=== PATIENT | female | born 1940 | race Caucasian/White ===

== ENCOUNTER 2016-11-15 10:59 | Inpatient (IN) | payer OTHER ==
[~2016-11-15] VITALS: Ht 152.4 cm; Wt 90.7 kg
[~2016-11-15 10:59] MED LIST: ADVAIR DISKUS 21 DSK INH; ASPIR 8181 MG PO; AUGMENTIN 875875 MG PO; CEFTIN500 MG PO; DUONEB 3 MG/3 ML3 ML INH; FENOFIBRATE160 MG PO; FISH OIL500 MG PO; FUROSEMIDE40 M1 PO; HUMALOG100 U/ML SC; KEFLEX500 MG PO; LANTUS SOLOS100 U/ML SC; LEVAQUIN500 MG PO; LOSARTAN POTAS100 MG PO; METFORMIN HYDR500 M1 PO; NAC600 MG PO; OMEPRAZOLE40 MG PO; PREDNISONE 10MG10 M1 PO; PREDNISONE 20MG20 MG PO; PREDNISONE10 MG PO; PROAIR HFA8.5 GM; SINGULAIR 5 MG T5 MG PO; SPIRIVA 18 MCG18 MCG INH; VALIUM5 M1 PO; VICODIN5-300 PO; VICTOZA6 MG/ML SC; VITAMIN B11000 MCG/M PO; VITAMIN B12500 MCG PO; VITAMIN C500 M3 PO; VITAMIN D1000 IU PO; ZETIA10 MG PO; ZOFRAN ODT4 MG PO; [UNRECOGNIZED DRUG - SUPPLY]
--- NOTE | 2016-11-15 11:12 | NUR ---
76 Y/O FEMALE C/O URI SYMPTOMS X 1 WEEK: C/O COUGH WITH YELLOW MUCOUS, FEELING "WEAK" AND DECREASED APPETITE/PO INTAKE. ALSO REPORTS "CHILLS". AFEBRILE AT PRESENT.
--- NOTE | 2016-11-15 11:20 | NUR ---
PT STATING SHE HAD AN XRAY ON FRIDAY AND WOULD LIKE TO BE SEEN BY MD PRIOR FOR REPEAT XRAY
--- NOTE | 2016-11-15 11:54 | ED DYSPNEA/ASTHMA COMPLAINT ---
History of Present Illness General Chief Complaint: Upper Respiratory Sx/Fever Stated Complaint: URI X 1WK Source: patient, family, old records Exam Limitations: no limitations Vital Signs & Intake/Output Vital Signs & Intake/Output Vital Signs Date Time Temp Pulse Resp B/P Pulse O2 O2 Flow FiO2 Ox Delivery Rate 11/19 0800 Room Air 11/19 0624 97.8 81 20 138/82 96 Room Air 11/19 0000 Room Air 11/18 2233 97.5 82 20 128/82 96 Room Air 11/18 1900 96 Room Air 11/18 1605 97.6 81 18 110/68 94 11/18 1600 Room Air ED Intake and Output 11/19 0000 11/18 1200 Intake Total 2275 120 Output Total 500 Balance 1775 120 Intake, IV 775 Intake, Oral 1500 120 Number 0 Bowel Movements Output, Urine 500 Allergies Coded Allergies: oxycodone (From PERCOCET) (?PERCOCET - NAUSEA 01/01/16) codeine (GI UPSET 01/01/16) Triage Note: 76 Y/O FEMALE C/O URI SYMPTOMS X 1 WEEK: C/O COUGH WITH YELLOW MUCOUS, FEELING "WEAK" AND DECREASED APPETITE/PO INTAKE. ALSO REPORTS "CHILLS". AFEBRILE AT PRESENT. Triage Nurses Notes Reviewed? yes HPI: Patient is a 76-year-old female presents complaining of cough, chills, weakness. Symptoms onset approximately 1.5 weeks ago but worsening over the past 2 days. Patient was seen by her pattern molder, Dr. Ramesh, on Friday, was examined and had a chest x-ray was placed on Mucinex. Patient reports no improvement with the Mucinex. Cough with yellow sputum production. Patient has been using her nebulizer, did not use today, with minimal improvement. Headache associated with cough. Patient received her influenza vaccination within the past year. Patient denies fevers, chest pain, bowel pain, nausea, vomiting. (MANISH RODRIGUEZ,LOLA) Reconcile Medications Albuterol Sulfate (Proair Hfa) 0.09 MG/Actuation ESE 2 PUFF INH Q6P PRN COPD (Reported) Allopurinol 300 MG TABLET 150 MG PO DAILY kidney stones (Reported) Ascorbate Calcium (Vitamin C) 500 MG TABLET 2 TAB PO DAILY SUPPLEMENT ( Reported) Aspirin (Ecotrin) 81 MG TABLET.DR 1 TAB PO DAILY HEART HEALTH (Reported) Cholecalciferol (Vitamin D3) 1,000 UNIT TABLET 1 TAB PO DAILY SUPPLEMENT ( Reported) Cyanocobalamin (Vitamin B12) 500 MCG TAB 1 TAB PO DAILY SUPPLEMENT (Reported) Ezetimibe (Zetia) 10 MG TABLET 1 TAB PO DAILY CHOLESTEROL (Reported) Fenofibrate 160 MG TAB 1 TAB PO DAILY CHOL (Reported) FLUTICASONE/SALMETEROL (Advair 250-50 Diskus) 250 MCG-50 MCG/DOSE BLST.W.DEV 1 PUF INH BID COPD (Reported) Furosemide 40 MG TABLET 1 TAB PO DAILY WATER PILL (Reported) HYDROCODONE/ACETAMINOPHEN (Hydrocodon-Acetaminophen 5-325) 5 MG-325 MG TABLET 1-2 TAB PO DAILY PAIN (Reported) Insulin Glargine, Recombinan (Lantus Solostar) 100 U/ML JAIME 30 UNITS SC AT BEDTIME DM (Reported) Insulin Lispro, Recombinant (Humalog) 100 U/ML HARSHIL 0 SC TIDAC/HS DIABETES ( Reported) BEFORE MEALS FS Units <120 (0) (121-150) (2) (151-200) (4) (201-250) (6) (251-300) (8) (301-350) (10) (351-400) (12) >400 Call Doctor AT BEDTIME FS Units <120 (0) (121-150) (0) (151-200) (0) (201-250) (0) (251-300) (1) (301-350) (2) (351-400) (3) >400 Call Doctor Liraglutide (Victoza 3-Richard) 0.6 MG/0.1 ML (18 MG/3 ML) PEN.INJCTR 1.8 mg SC DAILY DM (Reported) Losartan Potassium 100 MG TABLET 0.5 TAB PO DAILY HTN (Reported) Montelukast Sodium (Singulair) 5 MG TAB.CHEW 2 TAB PO DAILY ASTHMA (Reported) Omeprazole 40 MG CAPSULE.DR 1 CAP PO DAILY GERD (Reported) Pregabalin (Lyrica) 75 MG CAPSULE 1 CAP PO DAILY PAIN (Reported) Ramelteon (Rozerem) 8 MG TABLET 1 TAB PO QPMP PRN SLEEP Tiotropium [place]arien (Spiriva) 18 MCG CAP.W.DEV 1 CAP INH DAILY COPD (Reported) (JO ANN BANDA,JB) Past History Travel History Traveled to [place] past 21 day No Medical History Any Pertinent Medical History? see below for history Neurological: dizziness EENT: NONE Cardiovascular: CHF, hypertension, hyperlipidemia Respiratory: asthma, COPD Gastrointestinal: NONE Hepatic: cholangitis Renal: NONE (stones) Musculoskeletal: CHRONIC BACK PAIN Psychiatric: NONE Endocrine: DIABETES (IDDM) Blood Disorders: NONE Cancer(s): NONE CLAIM TRAINEE/Reproductive: NONE History of MRSA: No History of VRE: No History of CDIFF: No Surgical History Surgical History: cholecystectomy, hysterectomy Psychosocial History Who do you live with Spouse Services at Home None What is your primary language Thai Tobacco Use: Quit >30 days ago Family History Family History, If Any: BROTHER MOTHER FATHER SISTER BROTHER (lung ca). SISTER (emphysema). Relation not specified for: FH: brain cancer FH: colon cancer FH: diabetes mellitus FH: ischemic heart disease Hx Contributory? No (LOLA LYLES) Review of Systems Review of Systems Constitutional: Reports: chills, malaise, weakness. Denies: fever. EENTM: Reports: no symptoms. Respiratory: Reports: cough, short of breath, sputum production, wheezing. Cardiovascular: Denies: chest pain. GI: Denies: abdominal pain, nausea, vomiting. Genitourinary: Reports: no symptoms. Musculoskeletal: Reports: back pain (chronic, unchanged). Skin: Reports: no symptoms. Neurological/Psychological: Reports: no symptoms. Hematologic/Endocrine: Reports: no symptoms. Immunologic/Allergic: Reports: no symptoms. (LOLA LYLES) Physical Exam Physical Exam General Appearance: well developed/nourished, alert, awake Head: atraumatic, normal appearance Eyes: Bilateral: normal appearance, PERRL, EOMI. Ears, Nose, Throat: normal pharynx, normal ENT inspection, hearing grossly normal, course breath sounds in the upper airways/neck. No stridor Neck: normal inspection, supple, full range of motion Respiratory: chest non-tender, no respiratory distress, mild to moderate diffuse inspiratory and expiratory wheezing Cardiovascular: regular rate/rhythm Gastrointestinal: soft, non-tender Extremities: normal inspection, normal capillary refill, normal range of motion, trace bilateral lower extremity edema Neurologic/Psych: no motor/sensory deficits, awake, alert, oriented x 3, normal mood/affect Skin: intact, normal color, warm/dry Lymphatic: no anterior cervical mady Core Measures ACS in differential dx? No Severe Sepsis Present: No Septic Shock Present: No (LOLA LYLES) Progress Differential Diagnosis: asthma, bronchitis, CHF, COPD, pulmonary embolism, pneumonia Plan of Care: Orders Procedure Date/time Status Anticipated Discharge 11/20 UNK Active BASIC ELECTROLYTES PLUS BUN&CR 11/19 0600 Complete Nursing Misc 11/19 UNK Active Elevate 11/19 UNK Active RT: Reevaluation 11/18 1424 Active AEROSOL CHG 11/18 UNK Complete RT OVER-RIDE 11/18 UNK Complete Nursing Misc 11/18 UNK Active Current Medications Sig/Jose Start time Last Medication Dose Stop Time Status Admin Pregabalin 75 MG QPM 11/19 2200 AC (Lyrica) Albuterol Sulfate 2 PUF Q4P PRN 11/18 1400 AC (Ventolin) Laboratory Tests 11/19/16 0845: Anion Gap 13, Estimated GFR 34 L, BUN/Creatinine Ratio 35.3 H Discussed with and seen by Dr. Jessica. Results of chest x-ray discussed with patient. Ceftriaxone and Azithromycin ordered. (LOLA LYLES) Diagnostic Imaging: Viewed by Me: Radiology Read. Discussed w/RAD: Radiology Read. Radiology Impression: PATIENT: EMILIE CEVALLOS PRESENT AGE: 76 PATIENT ACCOUNT NO: [id number] : 38 LOCATION: [facility] ORDERING PHYSICIAN: JB JESSICA MD SERVICE DATE: 11/15/16 EXAM TYPE: RAD - XRY-CHEST XRAY, PA AND LATERAL EXAMINATION: XR CHEST CLINICAL INFORMATION: Shortness of breath. COMPARISON: 11/11/2016. TECHNIQUE: PA and lateral views of the chest were obtained. FINDINGS: The cardiomediastinal silhouette is within normal limits. There is new developing patchy opacity overlying the spine in the costophrenic angle inferiorly concerning for developing infiltrate and pneumonia given the patient's symptoms. It is uncertain if this is at the left or right lung base, clinical correlation recommended, however I believe it is more likely in the left costophrenic angle posteriorly. This could also represent some atelectasis. Follow-up to clearing is recommended. The lungs and pleural spaces otherwise appear clear. There is no evidence of pneumothorax or pulmonary edema. Included osseous structures appear largely unremarkable. IMPRESSION: Findings concerning for lower lobe pneumonia most likely left lower lobe. Follow-up imaging is recommended. DICTATED BY: NICOLA CARVAJAL MD DATE/TIME DICTATED:1222 DREDGING INSPECTOR:SHABAAN DATE/TIME TRANSCRIBED:11/15/161222 CONFIDENTIAL, DO NOT COPY WITHOUT APPROPRIATE AUTHORIZATION. <Electronically signed in Other Vendor System> SIGNED BY: NICOLA CARVAJAL MD 11/15/161228 Initial ED EKG: none (LOLA LYLES) Departure Departure Disposition: STILL A PATIENT Condition: Stable Clinical Impression Primary Impression: Pneumonia Referrals: DEEPA CANSECO MD (PCP/Family) Departure Forms: Customer Survey General Discharge Information Admission Note Spoke With: EULOGIO JEAN MD Documentation of Exam: Documentation of any treatments & extenuating circumstances including Concerns Regarding Discharge (functional status, medication knowledge or non-compliance, living conditions, etc.) that warrant an admission rather than observation: IV antibiotics, total respiratory care, consider pulmonary consultation. Patient with 2 points on [address] 65 scoring which puts her at higher risk if discharged. (LOLA LYLES) Departure Prescriptions: Current Visit Scripts Ramelteon (Rozerem) 1 TAB PO QPMP PRN SLEEP #30 TAB Ref 1 PA/ASSEMBLY MANAGER Co-Sign Statement Statement: ED Attending supervision documentation- [x] I saw and evaluated the patient. I have also reviewed all the pertinent lab results and diagnostic results. I agree with the findings and the plan of care as documented in the PA's/ASSEMBLY MANAGER's documentation. [x] I have reviewed the ED Record and agree with the PA's/ASSEMBLY MANAGER's documentation. [] Additions or exceptions (if any) to the PAs/ASSEMBLY MANAGER's note and plan are summarized below: [] (JO ANN BANDA,JB) Critical Care Note Critical Care Note Critical Care Time: non-applicable (LOLA LYLES)
--- NOTE | 2016-11-15 12:02 | NUR ---
RECIEVED TO ROOM 20. PT AWAKE, ALERT AND ORIENTED. SEEN BY LOLA RODRIGUEZ . PT NOW GOING TO RADIOLOGY
--- NOTE | 2016-11-15 12:11 | NUR ---
RT NOTIFIED OF NEB TX ORDERS.
--- NOTE | 2016-11-15 12:29 | RADIOLOGY REPORT ---
EXAMINATION: XR CHEST CLINICAL INFORMATION: Shortness of breath. COMPARISON: 11/11/2016. TECHNIQUE: PA and lateral views of the chest were obtained. FINDINGS: The cardiomediastinal silhouette is within normal limits. There is new developing patchy opacity overlying the spine in the costophrenic angle inferiorly concerning for developing infiltrate and pneumonia given the patient's symptoms. It is uncertain if this is at the left or right lung base, clinical correlation recommended, however I believe it is more likely in the left costophrenic angle posteriorly. This could also represent some atelectasis. Follow-up to clearing is recommended. The lungs and pleural spaces otherwise appear clear. There is no evidence of pneumothorax or pulmonary edema. Included osseous structures appear largely unremarkable. IMPRESSION: Findings concerning for lower lobe pneumonia most likely left lower lobe. Follow-up imaging is recommended.
[2016-11-15 12:33] LABS: ABSOLUTE BASOPHIL COUNT 0 /CUMM (0.0-0.2); ABSOLUTE EOSINOPHIL COUNT 0.1 /CUMM (0.0-0.7); ABSOLUTE GRANULOCYTE CT 11.8 /CUMM (1.4-6.5); ABSOLUTE LYMPH COUNT 0.7 /CUMM (1.2-3.4); ABSOLUTE MONOCYTE COUNT 0.5 /CUMM (0.10-0.60); BASOPHIL % 0.1 % (0.0-2.0); EOSINOPHIL % 0.4 % (0-5); GRANULOCYTE % 90.1 % (42.2-75.2); HEMATOCRIT 33.9 % (37-47); MEAN CORPUSCULAR HGB 29.3 PG (27.0-31.0); MEAN CORPUSCULAR VOLUME 88.7 FL (81.0-99.0); MEAN PLATELET VOLUME 7.7 FL (7.4-10.4); PLATELET COUNT 260 /CUMM (130-400); RBC DISTRIBUTION WIDTH 14.3 % (11.5-14.5); RED BLOOD CELL CT 3.82 /CUMM (4.20-5.40); WHITE BLOOD CELL COUNT 13.1 /CUMM (4.8-10.8)
[2016-11-15] MEDS ORDERED: LYRICA75 M1 PO (12:43)
[2016-11-15] MEDS ORDERED: VITAMIN C500 M6 PO (12:46)
[2016-11-15] MEDS ORDERED: ZETIA10 M1 PO (12:46)
--- NOTE | 2016-11-15 14:41 | NUR ---
PT AMBULATED TO BATHROOM USING CANE WITH STAND BY ASSIST OF
--- NOTE | 2016-11-15 15:08 | History & Physical ---
PROMISE PEARL MD 11/15/16 1507: General Information and HPI MD Statement: I have seen and personally examined EMILIE CHO and documented this H&P. The patient is a 76 year old F who presented with a patient stated chief complaint of cough. Source of Information: patient, family, old records Exam Limitations: no limitations History of Present Illness: Ms. Cho is a pleasant 76 year old female with PMH COPD not on home O2 followed by Dr. Tyson, mild interstitial pulmonary fibrosis, asthma, osteoarthritis on lyrica, HTN, HLD, GERD, diabetes, chronic low back pain and kidney stones who presents with chief complaint of cough and shortness of breath. Patient reports that she has chronic cough and shortness of breath but over the past 10 days these have become worse. Patient does report that she visted her bond clerk Dr. Tyson on 11/11/16 and had a chest x-ray done. He subsequently gave her mucinex without antibiotics; the mucinex offered no relief. Patient reports that about two days ago her symptoms became even more severe and they were associated with chills and lethargy. Patient also endorses decreased oral intake for the last 1 day and no relief with her rescue inhalers as well as increased sputum production that is yellow in color. She denies fever , headache, dizziness, chest pain, abdominal pain, nausea, vomiting, weakness, dysuria, diarrhea or lower extremity edema. Of note, patient had had a flu vaccination this past fall as well as the 13 valent pneumovax 2 years ago. She follows with Dr. Tyson as her bond clerk, Dr. Whitlock as her PCP and Dr. Hyman for her kidney stones. She also sees a specialist for her osteoarthritis. Patient does admit to recent sick contacts with several friends while out at a recent alliance party. Allergies/Medications Allergies: Coded Allergies: oxycodone (From PERCOCET) (?PERCOCET - NAUSEA 01/01/16) codeine (GI UPSET 01/01/16) Home Med list Albuterol Sulfate (Proair Hfa) 0.09 MG/Actuation ESE 2 PUFF INH Q6P PRN COPD (Reported) Allopurinol 300 MG TABLET 150 MG PO DAILY kidney stones (Reported) Ascorbate Calcium (Vitamin C) 500 MG TABLET 2 TAB PO DAILY SUPPLEMENT ( Reported) Aspirin (Ecotrin) 81 MG TABLET.DR 1 TAB PO DAILY HEART HEALTH (Reported) Cholecalciferol (Vitamin D3) 1,000 UNIT TABLET 1 TAB PO DAILY SUPPLEMENT ( Reported) Cyanocobalamin (Vitamin B12) 500 MCG TAB 1 TAB PO DAILY SUPPLEMENT (Reported) Ezetimibe (Zetia) 10 MG TABLET 1 TAB PO DAILY CHOLESTEROL (Reported) Fenofibrate 160 MG TAB 1 TAB PO DAILY CHOL (Reported) FLUTICASONE/SALMETEROL (Advair 250-50 Diskus) 250 MCG-50 MCG/DOSE BLST.W.DEV 1 PUF INH BID COPD (Reported) Furosemide 40 MG TABLET 1 TAB PO DAILY WATER PILL (Reported) HYDROCODONE/ACETAMINOPHEN (Hydrocodon-Acetaminophen 5-325) 5 MG-325 MG TABLET 1-2 TAB PO DAILY PAIN (Reported) Insulin Glargine, Recombinan (Lantus Solostar) 100 U/ML JAIME 30 UNITS SC AT BEDTIME DM (Reported) Insulin Lispro, Recombinant (Humalog) 100 U/ML HARSHIL 0 SC TIDAC/HS DIABETES ( Reported) BEFORE MEALS FS Units <120 (0) (121-150) (2) (151-200) (4) (201-250) (6) (251-300) (8) (301-350) (10) (351-400) (12) >400 Call Doctor AT BEDTIME FS Units <120 (0) (121-150) (0) (151-200) (0) (201-250) (0) (251-300) (1) (301-350) (2) (351-400) (3) >400 Call Doctor Liraglutide (Victoza 3-Richard) 0.6 MG/0.1 ML (18 MG/3 ML) PEN.INJCTR 1.8 mg SC DAILY DM (Reported) Losartan Potassium 100 MG TABLET 0.5 TAB PO DAILY HTN (Reported) Montelukast Sodium (Singulair) 5 MG TAB.CHEW 2 TAB PO DAILY ASTHMA (Reported) Omeprazole 40 MG CAPSULE.DR 1 CAP PO DAILY GERD (Reported) Pregabalin (Lyrica) 75 MG CAPSULE 1 CAP PO DAILY PAIN (Reported) Tiotropium Willcox (Spiriva) 18 MCG CAP.W.DEV 1 CAP INH DAILY COPD (Reported) Compliance With Home Meds: FAIR Past History Travel History Traveled to [place] past 21 day No Medical History Neurological: dizziness EENT: NONE Cardiovascular: CHF, hypertension, hyperlipidemia Respiratory: asthma, COPD Gastrointestinal: NONE Hepatic: cholangitis Renal: NONE (stones) Musculoskeletal: CHRONIC BACK PAIN Psychiatric: NONE Endocrine: DIABETES (IDDM) Blood Disorders: NONE Cancer(s): NONE DECKER OPERATOR/Reproductive: NONE History of MRSA: No History of VRE: No History of CDIFF: No Surgical History Surgical History: cholecystectomy, hysterectomy Past Family/Social History Family History Relations & Conditions if any BROTHER MOTHER FATHER SISTER BROTHER (lung ca). SISTER (emphysema). Relation not specified for: FH: brain cancer FH: colon cancer FH: diabetes mellitus FH: ischemic heart disease Psychosocial History Where do you live? Home Who Do You Live With? spouse Services at Home: None Primary Language: Bermudian Smoking Status: Former Smoker ETOH Use: occasional use Illicit Drug Use: denies illicit drug use Living Will? no Functional Ability ADLs Independent: dressing, eating, toileting, bathing. Ambulation: independent IADLs Independent: shopping, housework, finances, food prep, telephone, medication admin. Needs Assist: transportation. Sexual History Sexually Active No Employment History Employment Retired Review of Systems Review of Systems Constitutional: Reports: chills, malaise. Denies: diaphoresis, fever, weakness. EENTM: Reports: nasal congestion. Denies: blurred vision, visual changes, hearing changes, epistaxis, throat pain. Cardiovascular: Reports: peripheral edema (Occasional). Denies: chest pain, palpitations. Respiratory: Reports: cough, short of breath, sputum production, wheezing. Denies: hemoptysis, stridor. GI: Reports: constipation. Denies: abdominal pain, bloating, diarrhea, nausea, vomiting. Genitourinary: Denies: dysuria, hematuria. Musculoskeletal: Reports: joint pain (Chronic). Skin: Denies: change in skin color, change in hair/nails, erythema. Neurological/Psychological: Denies: anxiety, ataxia, confusion, headache, numbness. Hematologic/Endocrine: Denies: bruising, bleeding. Immunologic/Allergic: Denies: splenectomy. All Other Systems: Reviewed and Negative Exam & Diagnostic Data Last 24 Hrs of Vital Signs/I&O Vital Signs Date Time Temp Pulse Resp B/P Pulse O2 O2 Flow FiO2 Ox Delivery Rate 11/15 1535 99.3 88 22 138/63 94 Room Air 11/15 1309 99.4 95 16 149/68 95 Room Air 11/15 1255 Room Air 11/15 1224 93 11/15 1110 98.2 99 18 189/74 94 Room Air Intake & Output 11/15 1600 11/15 0800 11/15 0000 Intake Total 250 Output Total Balance 250 Intake, IV 250 Patient 200 lb Weight Physical Exam General Appearance Alert, Oriented X3, Cooperative, No Acute Distress Skin No Rashes, No Significant Lesion HEENT Atraumatic, PERRLA, Mucous Membr. moist/pink Neck Supple, No JVD Lymphatic Cervical nl Cardiovascular Regular Rate, Normal S1, Normal S2 Lungs Diffuse wheezing in all lung guillory, rhonchi appreciated in left lower lobe. Abdomen Normal Bowel Sounds, Soft, No Tenderness, No Hepatospenomegaly, No Masses Neurological Normal Speech, Strength at 5/5 X4 Ext, Normal Tone Extremities No Clubbing, No Cyanosis, 1+ pitting edema of bilateral lower extremities. Vascular Pulses Symmetrical Last 24 Hrs of Labs/Nirmal: Laboratory Tests 11/15/16 1503: Lactic Acid Cancelled 11/15/16 1225: Anion Gap 12, Estimated GFR 40 L, BUN/Creatinine Ratio 26.2 H, Glucose 121 H, Lactic Acid 0.8, Calcium 9.8, Total Bilirubin 0.6, AST 32, ALT 45, Alkaline Phosphatase 59, Total Protein 7.3, Albumin 4.5, Globulin 2.8, Albumin/Globulin Ratio 1.6, CBC w Diff MAN DIFF ORDERED, RBC 3.82 L, MCV 88.7, MCH 29.3, RDW 14.3, MPV 7.7, Gran % 90.1 H, Lymphocytes % 5.7 L, Monocytes % 3.7, Eosinophils % 0.4, Basophils % 0.1, Absolute Granulocytes 11.8 H, Absolute Lymphocytes 0.7 L, Absolute Monocytes 0.5, Absolute Eosinophils 0.1, Absolute Basophils 0, Platelet Estimate VERIFIED BY SMEAR, Polychromasia 1+, Anisocytosis 1+, PUBS MCHC 33.0 Microbiology 11/15 1507 LOWER RESP: Respiratory Culture - ORD 11/15 1507 LOWER RESP: Gram Stain - ORD 11/15 1505 URINE ROUT: Legionella Antigen - ORD 11/15 1505 URINE ROUT: Streptococcus pneumoniae Antigen (M - ORD 11/15 1251 BLOOD: Blood Culture - RECD 11/15 1225 BLOOD: Blood Culture - RECD Diagnostic Data EKG Results None. CXR Results EXAMINATION: XR CHEST CLINICAL INFORMATION: Shortness of breath. COMPARISON: 11/11/2016. TECHNIQUE: PA and lateral views of the chest were obtained. FINDINGS: The cardiomediastinal silhouette is within normal limits. There is new developing patchy opacity overlying the spine in the costophrenic angle inferiorly concerning for developing infiltrate and pneumonia given the patient's symptoms. It is uncertain if this is at the left or right lung base, clinical correlation recommended, however I believe it is more likely in the left costophrenic angle posteriorly. This could also represent some atelectasis. Follow-up to clearing is recommended. The lungs and pleural spaces otherwise appear clear. There is no evidence of pneumothorax or pulmonary edema. Included osseous structures appear largely unremarkable. IMPRESSION: Findings concerning for lower lobe pneumonia most likely left lower lobe. Follow-up imaging is recommended. Assessment/Plan Assessment: Ms. Tammie herrera s a pleasant 76 year old female with PMH COPD not on home O2 followed by Dr. Tyson, mild interstitial pulmonary fibrosis, asthma, osteoarthritis on lyrica, HTN, HLD, GERD, diabetes, chronic low back pain and kidney stones who presents with a 10 day history of cough with shortness of breath. Patient had previously seen Dr. Tyson on Friday and was prescribed mucinex without much relief. Since this time, she has become more lethargic and her cough has been productive of yellow sputum. Associated symptoms include chills, decreased oral intake and constipation. In the ED: Vital signs show T 98.2, HR 99, BP 189/74, RR 18 and O2 saturation of 94% on RA. Labs show leukocytosis to 13.1 without bandemia, anemia to 11.2/33.9 and renal dysfunction to 34/1.3 (baseline 1.2). CXR showed lower lobe pneumonia most likely left lower lobe. Patient was admitted to the general medicine floor and the following is the management: 1. COPD exacerbation * Patient saturating well on room air, though diffuse wheezing appreciated, provide supplemental O2 as needed to keep O2 sat >92% * IV solumedrol 40 mg Q8 h * Continue home inhalers, including montelukast and MDI * TRC nebs * Mucinex 600 mg Q8h * Consider pulm consult with Dr. Tyson in AM 2. 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 DM type 2 * Accuchecks TIDACHS * NSS * Levemir 15 U SC BID 5. ? CHF, HTN, HLD * Cotninue losartan 50 mg PO daily * Lasix 40 mg PO daily * Tricor 145 mg PO daily * Zetia 10 mg PO daily * ASA 81 mg PO daily 6. Sleep * Rozerem FULL CODE DVTP: Heparin SC CC3 diet As Ranked By This Provider Problem List: 1. GERD (gastroesophageal reflux disease) 2. HLD (hyperlipidemia) 3. DVT prophylaxis 4. Full code status 5. CHF (congestive heart failure) 6. COPD with acute exacerbation 7. Pneumonia Core Measures/Miscellaneous Acute Coronary Syndrome ACS Diagnosis: No Cerebrovascular Accident CVA/TIA Diagnosis: No Congestive Heart Failure CHF Diagnosis: No Venous Thromboembolism VTE Risk Factors: Acute medical illness, Age > 40, Obesity VTE Prophylaxis Ordered Inpt: Pharm- Heparin No Mech VTE prophylaxis d/t: No contraindications No VTE Pharm Prophylaxis d/t: No contraindications VTE Diagnosis: No VTE Type: NONE VTE Confirmed by (Test): NONE Severe Sepsis Severe Sepsis Present: No Septic Shock Septic Shock Present: No Miscellaneous Documentation Attending Case Discussed With: EULOGIO JEAN MD Primary Care Physician: DEEPA CANSECO MD Patient sees these Specialists Dr. Tyson- Pulmonology Dr. Hyman- Urology Level of Patient Care: General Medicine MARICARMENNORA 11/15/16 1702: Resident Review Statement Resident Statement: examined this patient, discussed with pharmacy graduate intern, agreed with pharmacy graduate intern, discussed with family, amended to note Other Findings: 76-year-old lady with past medical history of COPD not on oxygen, ILD, osteoarthritis, hypertension, hyperlipidemia,DM, back pain,kidney stones? CHF to the hospital with chief complaint of coughing and shortness of breath on exertion. Patient reported that his been having cough for 10 days which was of breath on exertion which exacerbated in recent days, patient seen Dr. TYSON on Friday with chest x-ray and that time did not show any pneumonia. she she was a started on Mucinex. Patient uses her inhaler regularly and is compliant on the medication. non smoker. She reported to have yellow sputum today. Vital signs on admission is stable and noted above. Physical exam General appearance alert and oriented 3, not in distress HEENT Atraumatic, PERRLA, EOMI Neck Supple, No JVD, No thryomegaly Cardiovascular Regular Rate, Normal S1, Normal S2 Lungs Clear to BL expiratory wheezes Abdomen Normal Bowel Sounds, Soft, No Tenderness, No Hepatospenomegaly, No Masses, Neurological Normal Speech, Strength at 5/5 X4 Ext, Sensation Intact Extremities 2+ bilateral LE edema CXR showed developing of pneumonia in the left lower lobe Notable labs creatinine 1.3 which is baseline, BUN 34, hemoglobin 11.2 which is baseline, WBC 13.1 with 90% grand Assessment and plan #CAP with COPD exacerbation -Admit to general med -Ceftriaxone and azithromycin IV for 5 days -[facility] nebs -Mucinex BID -Check urine strep and Legionella, blood culture, sputum culture -CBC, BEP daily -IV Solu-Medrol 40 mg every Q8 -Continue Advair #CKD/kidney stones -Continue Lasix -Continue allopurinol #Hypertension, hyperlipidemia -Continue home medications #Diabetes -Put the patient on Levemir and low-dose a sliding scale aspart for now Diabetic diet, mild pain pathway , full code, DVT prophylaxis is subcutaneous heparin and Alps EULOGIO JEAN MD 11/15/16 2303: Attending MD Review Statement Attending Statement Attending MD Statement: examined this patient, discuss w/resident/PA/COMPUTER AIDED DESIGN OPERATOR, agreed w/resident/PA/COMPUTER AIDED DESIGN OPERATOR, reviewed EMR data (avail) Attending Assessment/Plan: Agree with resident assessment and plan. Will treat for CAP with Ceftriaxone and Azithromycin, follow cultures, Solumedrol 40mg q8h, monitor oxygenation, continue home medications, DVT PPx
--- NOTE | 2016-11-15 15:17 | NUR ---
PT UP IN CHAIR DUE TO STRETCHER BEING UNCOMFORTABLE. GIVEN WATER TO DRINK. LUNCH TRAY ORDERED. HOUSE STAFF IN TO SEE PT
[2016-11-15] MEDS ORDERED: ALLOPURINOL300 M1 PO (15:25)
--- NOTE | 2016-11-15 15:41 | NUR ---
BED ASSIGNMENT [id number]
--- NOTE | 2016-11-15 16:10 | NUR ---
PT GIVEN LUNCH TRAY.
[2016-11-15 16:59] VITALS: BP 142/76
--- NOTE | 2016-11-15 17:37 | NUR ---
NURSING NOTE; LATE ENTRY; PT ADMITTED TO 219 AT 1640 FROM THE ER. PT ALERT AND ORIENTED X3, DENIES CP, DENIES SOB. PT LUNGS HAVE INS/EXP WHEEZING. PT STATES "I AM FEELING SO MUCH BETTER THAN I WAS BEFORE" PT DENIES ANY PAIN. PT ORIENTED TO ROOM AND CALL FRANCOIS. WILL CONTINUE TO MONITOR.
[2016-11-16 00:14] VITALS: BP 142/76
--- NOTE | 2016-11-16 07:58 | PN- Housestaff ---
See Addendum Subjective Follow-up For: CAP COPD exacerbation Subjective: Patient seen and examined at bedside this AM. She reports she has continued wheeze but this has improved since yesterday. She also admits to congestion, though she reports she will try mucinex for that. Otherwise, she offers no complaints. Review of Systems Constitutional: Reports: chills. Denies: fever, malaise. EENTM: Reports: nasal congestion. Denies: blurred vision, visual changes, hearing changes. Cardiovascular: Denies: chest pain, palpitations. Respiratory: Reports: cough, short of breath, sputum production, wheezing. Denies: hemoptysis, orthopnea. Gastrointestinal: Denies: abdominal pain, bloating, constipation, diarrhea. Genitourinary: Denies: dysuria, frequency, hematuria. Musculoskeletal: Denies: back pain. Skin: Denies: change in skin color, change in hair/nails. Neurological/Psychological: Denies: confusion, headache. Hematologic/Endocrine: Denies: bruising, bleeding. Immunologic/Allergic: Denies: splenectomy. Objective Last 24 Hrs of Vital Signs/I&O Vital Signs Date Time Temp Pulse Resp B/P Pulse O2 O2 Flow FiO2 Ox Delivery Rate 11/16 0810 97.5 77 20 150/70 94 Room Air 11/16 0014 98.6 84 24 142/76 92 11/16 0000 92 Room Air 11/15 1940 Room Air Room Air 11/15 1659 99.2 96 19 142/76 94 Room Air 11/15 1640 94 Room Air 11/15 1635 99.7 89 24 156/70 94 Room Air 11/15 1535 99.3 88 22 138/63 94 Room Air 11/15 1309 99.4 95 16 149/68 95 Room Air 11/15 1255 Room Air 11/15 1224 93 11/15 1110 98.2 99 18 189/74 94 Room Air Intake & Output 11/16 1600 11/16 0800 11/16 0000 Intake Total 800 Output Total 750 Balance 50 Intake, Oral 800 Output, Urine 750 Patient 200 lb Weight Physical Exam General Appearance: Alert, Oriented X3, Cooperative, No Acute Distress Skin: No Significant Lesion HEENT: Atraumatic, PERRLA, Mucous Membr. moist/pink Neck: Supple, No JVD Lymphatic: Cervical nl Cardiovascular: Regular Rate, Normal S1, Normal S2 Lungs: Wheezing appreciated, rhonchi heard RLL. Abdomen: Normal Bowel Sounds, Soft Neurological: Normal Speech, Normal Tone Extremities: No Clubbing, No Cyanosis, Trace pitting edema bilaterally. Current Medications: Current Medications Sig/Jose Start time Last Medication Dose Route Stop Time Status Admin Acetaminophen/ See Dose DAILY 11/16 1000 AC 11/16 Hydrocodone Bitart Insts (1) PO 0810 Albuterol Sulfate 3 ML EVERY 4 HRS/AWAKE 11/15 2000 AC INH Albuterol Sulfate 3 ML ONCE ONE 11/15 1215 DC 11/15 INH 11/15 1216 1215 Allopurinol 150 MG DAILY 11/16 1000 AC 11/16 PO 0807 Ascorbic Acid 500 MG BID 11/15 2200 AC 11/16 PO 0809 Aspirin Buffered 81 MG DAILY 11/16 1000 AC 11/16 PO 0807 Azithromycin 500 MG DAILY 11/16 1000 AC Dextrose/Water 250 ML IV Azithromycin 500 MG ONCE ONE 11/15 1245 DC 11/15 Dextrose/Water 250 ML IV 11/15 1344 1309 Budesonide/ 2 PUF BID 11/15 2200 AC 11/16 Formoterol Fumarate INH 0813 Ceftriaxone Sodium 1,000 MG DAILY 11/16 1000 AC IV Ceftriaxone Sodium 1,000 MG ONCE ONE 11/15 1245 DC 11/15 IV 11/15 1246 1254 Ceftriaxone Sodium 0 .STK-MED ONE 11/15 1245 DC .ROUTE Cholecalciferol 1,000 IU DAILY 11/16 1000 AC 11/16 PO 0809 Cyanocobalamin 250 MCG DAILY 11/16 1000 AC 11/16 PO 0809 Ezetimibe 10 MG DAILY 11/16 1000 AC 11/16 PO 0807 Fenofibrate 145 MG DAILY 11/16 1000 AC 11/16 PO 0809 Furosemide 40 MG DAILY 11/16 1000 AC 11/16 PO 0807 Guaifenesin 600 MG Q12 11/15 2200 AC 11/16 PO 0807 Heparin Sodium 5,000 UNIT Q8 11/150 AC 11/16 (Porcine) SC 0630 Insulin Aspart 0 TIDAC 11/15 1700 AC 11/16 SC 0811 Insulin Detemir 15 UNITS BID 11/15 2200 AC 11/16 SC 0811 Ipratropium [place] 2.5 ML ONCE ONE 11/15 1215 DC 11/15 INH 11/15 1216 1215 Losartan Potassium 50 MG DAILY 11/16 1000 AC 11/16 PO 0807 Methylprednisolone 0 .STK-MED ONE 11/15 1633 DC .ROUTE Methylprednisolone 40 MG Q8 11/15 1600 AC 11/16 IV 0630 Montelukast Sodium 10 MG AT BEDTIME 11/15 2200 AC 11/15 PO 2155 Omeprazole 40 MG DAILY AC 11/16 0700 AC 11/16 PO 0630 Pregabalin 75 MG DAILY 11/16 1000 AC 11/16 PO 0810 Ramelteon 8 MG AT BEDTIME 11/15 2200 AC 11/15 PO 2155 Dose Instructions: (1)Acetaminophen/Hydrocodone Bitart: 1-2 TAB Last 24 Hrs of Lab/Nirmal Results Last 24 Hrs of Labs/Mics: Laboratory Tests 11/15/16 1503: Lactic Acid Cancelled 11/15/16 1225: Anion Gap 12, Estimated GFR 40 L, BUN/Creatinine Ratio 26.2 H, Glucose 121 H, Lactic Acid 0.8, Calcium 9.8, Total Bilirubin 0.6, AST 32, ALT 45, Alkaline Phosphatase 59, Total Protein 7.3, Albumin 4.5, Globulin 2.8, Albumin/Globulin Ratio 1.6, CBC w Diff MAN DIFF ORDERED, RBC 3.82 L, MCV 88.7, MCH 29.3, RDW 14.3, MPV 7.7, Gran % 90.1 H, Lymphocytes % 5.7 L, Monocytes % 3.7, Eosinophils % 0.4, Basophils % 0.1, Absolute Granulocytes 11.8 H, Absolute Lymphocytes 0.7 L, Absolute Monocytes 0.5, Absolute Eosinophils 0.1, Absolute Basophils 0, Platelet Estimate VERIFIED BY SMEAR, Polychromasia 1+, Anisocytosis 1+, PUBS MCHC 33.0 11/15/16 1203: Virus Culture Pending Microbiology 11/15 2119 LOWER RESP: Respiratory Culture - RES 11/15 2119 LOWER RESP: Gram Stain - RES 11/15 2117 URINE ROUT: Legionella Antigen - COMP 11/15 2117 URINE ROUT: Streptococcus pneumoniae Antigen (M - COMP 11/15 1251 BLOOD: Blood Culture - [facility] 11/15 1225 BLOOD: Blood Culture - [facility] Orders Radiology Findings: EXAMINATION: XR CHEST CLINICAL INFORMATION: Shortness of breath. COMPARISON: 11/11/2016. TECHNIQUE: PA and lateral views of the chest were obtained. FINDINGS: The cardiomediastinal silhouette is within normal limits. There is new developing patchy opacity overlying the spine in the costophrenic angle inferiorly concerning for developing infiltrate and pneumonia given the patient's symptoms. It is uncertain if this is at the left or right lung base, clinical correlation recommended, however I believe it is more likely in the left costophrenic angle posteriorly. This could also represent some atelectasis. Follow-up to clearing is recommended. The lungs and pleural spaces otherwise appear clear. There is no evidence of pneumothorax or pulmonary edema. Included osseous structures appear largely unremarkable. IMPRESSION: Findings concerning for lower lobe pneumonia most likely left lower lobe. Follow-up imaging is recommended. Assessment/Plan Assessment: Ms. Cho is a pleasant 76 year old female with PMH COPD not on home O2 followed by Dr. Ramesh, mild interstitial pulmonary fibrosis, asthma, osteoarthritis on lyrica, HTN, HLD, GERD, diabetes, chronic low back pain and kidney stones who presents with a 10 day history of cough with shortness of breath. Patient had previously seen Dr. Ramesh on Friday and was prescribed mucinex without much relief. Since this time, she has become more lethargic and her cough has been productive of yellow sputum. Associated symptoms include chills, decreased oral intake and constipation. In the ED: Vital signs show T 98.2, HR 99, BP 189/74, RR 18 and O2 saturation of 94% on RA. Labs show leukocytosis to 13.1 without bandemia, anemia to 11.2/33.9 and renal dysfunction to 34/1.3 (baseline 1.2). CXR showed lower lobe pneumonia most likely left lower lobe. Patient was admitted to the general medicine floor and the following is the management: 1. COPD exacerbation * Patient saturating well on room air, though diffuse wheezing appreciated, provide supplemental O2 as needed to keep O2 sat >92% * IV solumedrol 40 mg Q8 h, will taper daily * Continue home inhalers, including montelukast and MDI * TRC nebs * Mucinex 600 mg Q8h * Consider pulm consult with Dr. Ramesh in AM 2. 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 DM type 2 * Accuchecks TIDACHS * NSS * Levemir 15 U SC BID 5. ? CHF, HTN, HLD * Cotninue losartan 50 mg PO daily * Lasix 40 mg PO daily * Tricor 145 mg PO daily * Zetia 10 mg PO daily * ASA 81 mg PO daily 6. Sleep * Continue rozerem as patient reports this is helping her greatly FULL CODE DVTP: Heparin SC CC3 diet Problem List: 1. COPD with acute exacerbation 2. Pneumonia 3. GERD (gastroesophageal reflux disease) 4. HLD (hyperlipidemia) 5. DVT prophylaxis 6. Full code status 7. Diabetes mellitus type 2 8. Benign essential hypertension Pain Ratin Pain Location: n/a Pain Goal: Remain pain free Pain Plan: Vicodin 1-2 tab PO daily as needed for chronic pain. Tomorrow's Labs & Rationales: CBC (monitor leukocytosis), BEP (monitor electrolytes in setting of CKD)
[2016-11-16 08:10] VITALS: BP 150/70
[2016-11-16 09:17] LABS: ABSOLUTE BASOPHIL COUNT 0 /CUMM (0.0-0.2); ABSOLUTE EOSINOPHIL COUNT 0 /CUMM (0.0-0.7); ABSOLUTE GRANULOCYTE CT 9.5 /CUMM (1.4-6.5); ABSOLUTE LYMPH COUNT 0.5 /CUMM (1.2-3.4); ABSOLUTE MONOCYTE COUNT 0.2 /CUMM (0.10-0.60); BASOPHIL % 0 % (0.0-2.0); EOSINOPHIL % 0 % (0-5); GRANULOCYTE % 93.1 % (42.2-75.2); HEMATOCRIT 32.6 % (37-47); MEAN CORPUSCULAR HGB 29.4 PG (27.0-31.0); MEAN CORPUSCULAR HGB CONC 32.7 G/DL (33.0-37.0); MEAN CORPUSCULAR VOLUME 89.8 FL (81.0-99.0); MEAN PLATELET VOLUME 8.4 FL (7.4-10.4); PLATELET COUNT 232 /CUMM (130-400); RBC DISTRIBUTION WIDTH 14.7 % (11.5-14.5); RED BLOOD CELL CT 3.63 /CUMM (4.20-5.40); WHITE BLOOD CELL COUNT 10.2 /CUMM (4.8-10.8)
[2016-11-16 16:01] VITALS: BP 116/64
[2016-11-16 23:53] VITALS: BP 120/64
[2016-11-17 08:16] VITALS: BP 150/76
--- NOTE | 2016-11-17 08:52 | PN- Housestaff ---
SETH BANDA,DOROTHY 11/17/16 0851: Subjective Follow-up For: CAP COPD exacerbation Subjective: Patient seen and examined at bedside. No events reported overnight. She reports feeling well with no new complaints. She still has some dyspnea but only with exertion and it's improving. Denies any chest pain, palpitations, abdominal pain, nause and vomiting. Patient reports constipation and is agreeable to starting a bowel regimen. Review of Systems Constitutional: Reports: see HPI. Comments: Skin: No Significant Lesion HEENT: Atraumatic, PERRLA, Mucous Membr. moist/pink Neck: Supple, No JVD Lymphatic: Cervical nl Cardiovascular: Regular Rate, Normal S1, Normal S2 Lungs: Wheezing appreciated, rhonchi heard RLL. Abdomen: Normal Bowel Sounds, Soft Neurological: Normal Speech, Normal Tone Extremities: No Clubbing, No Cyanosis, Trace pitting edema bilaterally. Objective Last 24 Hrs of Vital Signs/I&O Vital Signs Date Time Temp Pulse Resp B/P Pulse O2 O2 Flow FiO2 Ox Delivery Rate 11/17 0917 95 Room Air Room Air 11/17 0816 97.8 72 20 150/76 95 Room Air 11/17 0800 Room Air 11/17 0000 92 Room Air 11/16 2353 97.9 82 20 120/64 93 11/16 1601 97.7 75 19 116/64 93 Room Air 11/16 1600 93 Room Air 11/16 1550 96 Room Air Intake & Output 11/17 1600 11/17 0800 11/17 0000 Intake Total 750 Output Total Balance 750 Intake, Oral 750 Physical Exam General Appearance: Alert, Oriented X3, Cooperative, No Acute Distress Other Physical Findings: Skin: No Significant Lesion HEENT: Atraumatic, PERRLA, Mucous Membr. moist/pink Neck: Supple, No JVD Lymphatic: Cervical nl Cardiovascular: Regular Rate, Normal S1, Normal S2 Lungs: Wheezing appreciated, rhonchi heard RLL. Abdomen: Normal Bowel Sounds, Soft Neurological: Normal Speech, Normal Tone Extremities: No Clubbing, No Cyanosis, Trace pitting edema bilaterally. Current Medications: Current Medications Sig/Jose Start time Last Medication Dose Route Stop Time Status Admin Acetaminophen/ See Dose DAILY 11/16 999 AC 11/17 Hydrocodone Bitart Insts (1) PO 0857 Albuterol Sulfate 3 ML EVERY 4 HRS/AWAKE 11/15 1999 AC 11/17 INH 1307 Allopurinol 150 MG DAILY 11/16 1000 AC 11/17 PO 0857 Ascorbic Acid 500 MG BID 11/15 2200 AC 11/17 PO 0858 Aspirin Buffered 81 MG DAILY 11/16 1000 AC 11/17 PO 0858 Azithromycin 500 MG DAILY 11/16 1000 AC 11/17 Dextrose/Water 250 ML IV 0900 Budesonide/ 2 PUF BID 11/15 2200 AC 11/17 Formoterol Fumarate INH 0900 Ceftriaxone Sodium 1,000 MG DAILY 11/16 1000 AC 11/17 IV 0900 Cholecalciferol 1,000 IU DAILY 11/16 1000 AC 11/17 PO 0858 Cyanocobalamin 250 MCG DAILY 11/16 1000 AC 11/17 PO 0858 Ezetimibe 10 MG DAILY 11/16 1000 AC 11/17 PO 0858 Fenofibrate 145 MG DAILY 11/16 1000 AC 11/17 PO 0858 Guaifenesin 600 MG Q12 11/15 2200 AC 11/17 PO 0858 Heparin Sodium 5,000 UNIT Q8 11/15 2200 AC 11/17 (Porcine) SC 0638 Insulin Aspart 0 TIDAC 11/15 1700 AC 11/17 SC 1207 Insulin Detemir 15 UNITS BID 11/15 2200 AC 11/17 SC 0901 Losartan Potassium 50 MG DAILY 11/16 1000 AC 11/17 PO 0858 Methylprednisolone 40 MG Q8 11/15 1600 AC 11/17 IV 0635 Montelukast Sodium 10 MG AT BEDTIME 11/15 2200 AC 11/16 PO 2200 Omeprazole 40 MG DAILY AC 11/16 0700 AC 11/17 PO 0638 Pregabalin 75 MG DAILY 11/16 1000 AC 11/17 PO 0857 Ramelteon 8 MG AT BEDTIME 11/15 2199 AC 11/16 PO 2200 Senna/Docusate Sodium 1 TAB BID PRN 11/17 1015 AC 11/17 PO 1208 Dose Instructions: (1)Acetaminophen/Hydrocodone Bitart: 1-2 TAB Last 24 Hrs of Lab/Nirmal Results Last 24 Hrs of Labs/Mics: Laboratory Tests 11/17/16 0820: Anion Gap 11, Estimated GFR 40 L, BUN/Creatinine Ratio 40.0 H, CBC w Diff NO MAN DIFF REQ, RBC 3.51 L, MCV 89.3, MCH 29.5, RDW 14.3, MPV 8.6, Gran % 91.3 H , Lymphocytes % 5.8 L, Monocytes % 2.9, Eosinophils % 0, Basophils % 0 L, Absolute Granulocytes 9.7 H, Absolute Lymphocytes 0.6 L, Absolute Monocytes 0.3, Absolute Eosinophils 0, Absolute Basophils 0, PUBS MCHC 33.0 11/16/16 9050: Assessment/Plan Assessment: Ms. Cho is a pleasant 76 year old female with PMH COPD not on home O2 followed by Dr. Ramesh, mild interstitial pulmonary fibrosis, asthma, osteoarthritis on lyrica, HTN, HLD, GERD, diabetes, chronic low back pain and kidney stones who presents with a 10 day history of cough with shortness of breath. Patient had previously seen Dr. Ramesh on Friday and was prescribed mucinex without much relief. Since this time, she has become more lethargic and her cough has been productive of yellow sputum. Associated symptoms include chills, decreased oral intake and constipation. In the ED: Vital signs show T 98.2, HR 99, BP 189/74, RR 18 and O2 saturation of 94% on RA. Labs show leukocytosis to 13.1 without bandemia, anemia to 11.2/33.9 and renal dysfunction to 34/1.3 (baseline 1.2). CXR showed lower lobe pneumonia most likely left lower lobe. Patient was admitted to the general medicine floor and the following is the management: 1. COPD exacerbation Patient saturating well on room air, though diffuse wheezing appreciated, provide supplemental O2 as needed to keep O2 sat >92% * Taper IV Solumedrol to 40 mg Q12 * Continue home inhalers, including montelukast and MDI * TRC nebs * Mucinex 600 mg Q8h * Consider pulm consult with Dr. Ramesh if patient's respiratory status does not improve 2. 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 DM type 2 * Accuchecks TIDACHS * NSS * Levemir 15 U SC BID 5. ? CHF, HTN, HLD * Cotninue losartan 50 mg PO daily * Lasix 40 mg PO daily * Tricor 145 mg PO daily * Zetia 10 mg PO daily * ASA 81 mg PO daily 6. Sleep * Continue rozerem as patient reports this is helping her greatly FULL CODE DVTP: Heparin SC CC3 diet Problem List: 1. COPD with acute exacerbation Pain Ratin Pain Location: 0 Pain Goal: Remain pain free Pain Plan: Vicodin 1-2 tab PO daily as needed for chronic pain. Tomorrow's Labs & Rationales: CBC (monitor leukocytosis), BEP (monitor electrolytes in setting of CKD) EULOGIO JEAN MD 11/17/16 1556: Attending MD Review Statement Attending Statement Attending MD Statement: examined this patient, discuss w/resident/PA/MANIPULATIVE THERAPY SPECIALIST, agreed w/resident/PA/MANIPULATIVE THERAPY SPECIALIST, reviewed EMR data (avail) Attending Assessment/Plan: 76F PMH COPD, interstitial pulmonary fibrosis, osteoarthritis on lyrica, HTN, HLD, GERD, Type 2 diabetes, chronic low back pain admitted for 1 week of worsening shortness of breath, weakness, decreased PO intake, chills, and thick yellow sputum production. She feels unable to take a breath without difficulty and becomes dyspneic on exertion. Afebrile with stable vitals. Breathing improved. Patient appears clinically improved and is able to walk a bit more without becoming dyspneic. Appetite intact. Wheezing improved. 1. Community acquired pneumonia 2. Acute exacerbation of COPD 3. CKD Stage 3 4. Chronic low back pain 5. Dyspnea on exertion Plan - Continue on general medicine - Solumedrolk 40mg q12h, switch to PO tomorrow - Continue Ceftriaxone and Azithromycin - Follow sputum and blood cultures - TRC/nebulizers - Continue Mucinex - Gentle IV hydration - Monitor renal function and potassium - Continue home medications - May restart Lasix on discharge - DVT PPx
[2016-11-17 10:24] LABS: ABSOLUTE BASOPHIL COUNT 0 /CUMM (0.0-0.2); ABSOLUTE EOSINOPHIL COUNT 0 /CUMM (0.0-0.7); ABSOLUTE GRANULOCYTE CT 9.7 /CUMM (1.4-6.5); ABSOLUTE LYMPH COUNT 0.6 /CUMM (1.2-3.4); ABSOLUTE MONOCYTE COUNT 0.3 /CUMM (0.10-0.60); BASOPHIL % 0 % (0.0-2.0); EOSINOPHIL % 0 % (0-5); GRANULOCYTE % 91.3 % (42.2-75.2); HEMATOCRIT 31.4 % (37-47); MEAN CORPUSCULAR HGB 29.5 PG (27.0-31.0); MEAN CORPUSCULAR VOLUME 89.3 FL (81.0-99.0); MEAN PLATELET VOLUME 8.6 FL (7.4-10.4); PLATELET COUNT 246 /CUMM (130-400); RBC DISTRIBUTION WIDTH 14.3 % (11.5-14.5); RED BLOOD CELL CT 3.51 /CUMM (4.20-5.40); WHITE BLOOD CELL COUNT 10.6 /CUMM (4.8-10.8)
--- NOTE | 2016-11-17 11:04 | NUR ---
NURSING NOTE: PATIENT REQUESTED MEDICATION TO HELP HER HAVE A BOWEL MOVEMENT. THE PATIENT STATES SHE USUALLY HAS A BOWEL MOVEMENT EVERY DAY AND IT HAS BEEN TWO DAYS AND SHE FEELS LIKE SHE IS GETTING BACKED UP. JUAREZ Clifford NOTIFIED. WILL AWAIT NEW ORDERS
[2016-11-17 15:49] VITALS: BP 142/70
[2016-11-17 23:57] VITALS: BP 128/44
--- NOTE | 2016-11-18 07:01 | PN- Housestaff ---
See Addendum Subjective Follow-up For: CAP COPD exacerbation Subjective: Patient seen and examined at bedside this AM. She reports she has persistent cough and her dyspnea is improving since admission. She denies fever, chills, chest pain, abdominal pain, weakness. Review of Systems Constitutional: Denies: chills, fever, malaise. EENTM: Denies: blurred vision, visual changes, hearing changes, nasal congestion, throat pain. Cardiovascular: Denies: chest pain, palpitations. Respiratory: Reports: cough, short of breath, sputum production, wheezing. Denies: hemoptysis, orthopnea, stridor. Gastrointestinal: Reports: constipation. Denies: abdominal pain, diarrhea. Genitourinary: Denies: dysuria, frequency, hematuria. Musculoskeletal: Denies: back pain, joint pain. Skin: Denies: change in skin color, change in hair/nails. Neurological/Psychological: Denies: confusion, headache, numbness, paresthesia. Hematologic/Endocrine: Denies: bruising, bleeding. Objective Last 24 Hrs of Vital Signs/I&O Vital Signs Date Time Temp Pulse Resp B/P Pulse O2 O2 Flow FiO2 Ox Delivery Rate 11/18 1014 72 120/60 11/18 0823 97.5 72 20 120/60 98 Room Air 11/18 0800 Room Air 11/18 0000 94 Room Air Room Air 11/17 2357 98.0 74 20 128/44 93 Room Air 11/17 2045 95 Room Air 11/17 1713 94 Room Air 11/17 1600 96 Room Air 11/17 1549 97.8 78 19 142/70 96 Room Air Intake & Output 11/18 1600 11/18 0800 11/18 0000 Intake Total 120 600 Output Total Balance 120 600 Intake, Oral 120 600 Physical Exam General Appearance: Alert, Oriented X3, Cooperative, No Acute Distress Skin: No Rashes, No Significant Lesion HEENT: Atraumatic, Mucous Membr. moist/pink Neck: Supple, No JVD Lymphatic: Cervical nl Cardiovascular: Regular Rate, Normal S1, Normal S2 Lungs: Bilateral wheezing in all lung guillory, +occasional rhonchi at LLL Abdomen: Normal Bowel Sounds, Soft, No Tenderness Neurological: Normal Gait, Normal Speech, Normal Tone Extremities: No Clubbing, No Cyanosis, 1+ pitting edema bilateral lower extremities Vascular: Pulses Symmetrical Current Medications: Current Medications Sig/Jose Start time Last Medication Dose Route Stop Time Status Admin Acetaminophen/ See Dose DAILY 11/16 1000 AC 11/18 Hydrocodone Bitart Insts (1) PO 1008 Albuterol Sulfate 2 PUF Q4P PRN 11/18 1400 AC INH Albuterol Sulfate 3 ML EVERY 4 HRS/AWAKE 11/15 2000 DC 11/18 INH 1345 Allopurinol 150 MG DAILY 11/16 1000 AC 11/18 PO 0954 Ascorbic Acid 500 MG BID 11/15 2200 AC 11/18 PO 0955 Aspirin Buffered 81 MG DAILY 11/16 1000 AC 11/18 PO 0955 Azithromycin 500 MG DAILY 11/16 1000 DC 11/18 Dextrose/Water 250 ML IV 0957 Bisacodyl 10 MG DAILY PRN 11/18 1145 AC NC Budesonide/ 2 PUF BID 11/15 220 DC 11/18 Formoterol Fumarate INH 0956 Ceftriaxone Sodium 1,000 MG DAILY 11/16 1000 AC 11/18 IV 0957 Cholecalciferol 1,000 IU DAILY 11/16 1000 AC 11/18 PO 0954 Cyanocobalamin 250 MCG DAILY 11/16 1000 AC 11/18 PO 0955 Ezetimibe 10 MG DAILY 11/16 1000 AC 11/18 PO 0955 Fenofibrate 145 MG DAILY 11/16 1000 AC 11/18 PO 0955 Guaifenesin 600 MG Q12 11/15 2200 AC 11/18 PO 0955 Heparin Sodium 5,000 UNIT Q8 11/15 2200 AC 11/18 (Porcine) SC 1312 Insulin Aspart 0 TIDAC 11/15 1700 AC 11/18 SC 1310 Insulin Detemir 15 UNITS BID 11/15 2200 AC 11/18 SC 0953 Losartan Potassium 50 MG DAILY 11/16 1000 DC 11/18 PO 1014 Methylprednisolone 40 MG Q12 11/17 2200 DC 11/17 IV 11/18 0000 2118 Montelukast Sodium 10 MG AT BEDTIME 11/15 2200 AC 11/17 PO 2117 Omeprazole 40 MG DAILY AC 11/16 0700 AC 11/18 PO 0602 Polyethylene Glycol 17 GM DAILY 11/18 1326 AC PO Prednisone 40 MG DAILY 11/19 1000 AC PO Prednisone 60 MG DAILY 11/18 1000 DC 11/18 PO 0954 Pregabalin 75 MG DAILY 11/16 1000 AC 11/18 PO 1008 Ramelteon 8 MG AT BEDTIME 11/15 2200 AC 11/17 PO 2118 Senna/Docusate Sodium 1 TAB BID PRN 11/17 1015 AC 11/17 PO 1208 Sodium Chloride 1,000 ML Q13H 11/18 1100 AC 11/18 IV 1310 Tiotropium [place] 1 PUF DAILY 11/18 1253 AC INH Dose Instructions: (1)Acetaminophen/Hydrocodone Bitart: 1-2 TAB Last 24 Hrs of Lab/Nirmal Results Last 24 Hrs of Labs/Mics: Laboratory Tests 11/18/16 0750: Anion Gap 13, Estimated GFR 29 L, BUN/Creatinine Ratio 39.4 H Orders Radiology Findings: EXAMINATION: XR CHEST CLINICAL INFORMATION: Shortness of breath. COMPARISON: 11/11/2016. TECHNIQUE: PA and lateral views of the chest were obtained. FINDINGS: The cardiomediastinal silhouette is within normal limits. There is new developing patchy opacity overlying the spine in the costophrenic angle inferiorly concerning for developing infiltrate and pneumonia given the patient's symptoms. It is uncertain if this is at the left or right lung base, clinical correlation recommended, however I believe it is more likely in the left costophrenic angle posteriorly. This could also represent some atelectasis. Follow-up to clearing is recommended. The lungs and pleural spaces otherwise appear clear. There is no evidence of pneumothorax or pulmonary edema. Included osseous structures appear largely unremarkable. IMPRESSION: Findings concerning for lower lobe pneumonia most likely left lower lobe. Follow-up imaging is recommended. Assessment/Plan Assessment: Ms. Cho is a pleasant 76 year old female with PMH COPD not on home O2 followed by Dr. Ramesh, mild interstitial pulmonary fibrosis, asthma, osteoarthritis on lyrica, HTN, HLD, GERD, diabetes, chronic low back pain and kidney stones who presents with a 10 day history of cough with shortness of breath. Patient had previously seen Dr. Ramesh on Friday and was prescribed mucinex without much relief. Since this time, she has become more lethargic and her cough has been productive of yellow sputum. Associated symptoms include chills, decreased oral intake and constipation. In the ED: Vital signs show T 98.2, HR 99, BP 189/74, RR 18 and O2 saturation of 94% on RA. Labs show leukocytosis to 13.1 without bandemia, anemia to 11.2/33.9 and renal dysfunction to 34/1.3 (baseline 1.2). CXR showed lower lobe pneumonia most likely left lower lobe. Patient was admitted to the general medicine floor and the following is the management: 1. COPD exacerbation * Patient saturating well on room air, though diffuse wheezing appreciated, provide supplemental O2 as needed to keep O2 sat >92% * Taper IV Solumedrol to 40 mg Qday * Continue home inhalers, including montelukast and MDI * TRC nebs * Mucinex 600 mg Q8h * Pulm consult with Dr. Ramesh for today placed and appreciated, Dr. Ramesh suggests repeat CXR, will await results * Spiriva started, nebs changed to albuterol, symbicort discontinued 2. 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 This was associated with mild hyperkalemia to 5.3 * IV fluids ordered, lasix continues to be on hold, we are currently holding losartan in setting of OMAIRA on CKD * Bilateral renal US ordered to r/o obstruction, f/u results * Continue allopurinol for renal stones 4. DM type 2 * Accuchecks TIDACHS * NSS * Levemir 15 U SC BID 5. ? CHF, HTN, HLD * Cotninue losartan 50 mg PO daily * Lasix 40 mg PO daily * Tricor 145 mg PO daily * Zetia 10 mg PO daily * ASA 81 mg PO daily 6. Sleep * Continue rozerem as patient reports this is helping her greatly FULL CODE DVTP: Heparin SC CC3 diet Problem List: 1. Arthritis 2. COPD with acute exacerbation 3. CHF (congestive heart failure) 4. DVT prophylaxis 5. Full code status 6. Pneumonia 7. Benign essential hypertension 8. HLD (hyperlipidemia) Pain Ratin Pain Location: n/a Pain Goal: Remain pain free Pain Plan: Mild pain pathway. Tomorrow's Labs & Rationales: BEP to monitor hyperkalemia and worsening renal function.
[2016-11-18 08:23] VITALS: BP 120/60
--- NOTE | 2016-11-18 10:42 | Cons- Pulmonary ---
General Information and HPI Consulting Request Date of Consult: 11/18/16 Requested By: PT and ed History of Present Illness: Ms. Cho is a pleasant 76 year old female with PMH COPD not on home O2 followed by Dme, mild interstitial pulmonary fibrosis, asthma, osteoarthritis on lyrica, HTN, HLD, GERD, diabetes, chronic low back pain and kidney stones who presents with chief complaint of cough and shortness of breath. Patient reports that she has chronic cough and shortness of breath but over the past 10 days these have become worse. Recently she had cold like symptoms which became worse and then Patient reports that about two days prior to admission her symptoms became even more severe and they were associated with chills and lethargy. Patient also endorses decreased oral intake for the last 1 day and no relief with her rescue inhalers as well as increased sputum production that is yellow in color. She denies fever, headache, dizziness, chest pain, abdominal pain, nausea, vomiting, weakness, dysuria, diarrhea or lower extremity edema. Of note, patient had had a flu vaccination this past fall as well as the 13 valent pneumovax 2 years ago Constitutional: Reports: chills, malaise. Denies: diaphoresis, fever, weakness. EENTM: Reports: nasal congestion. Denies: blurred vision, visual changes, hearing changes, epistaxis, throat pain. Cardiovascular: Reports: peripheral edema (Occasional). Denies: chest pain, palpitations. Respiratory: Reports: cough, short of breath, sputum production, wheezing. Denies: hemoptysis, stridor. GI: Reports: constipation. Denies: abdominal pain, bloating, diarrhea, nausea, vomiting. Genitourinary: Denies: dysuria, hematuria. Musculoskeletal: Reports: joint pain (Chronic). Skin: Denies: change in skin color, change in hair/nails, erythema. Neurological/Psychological: Denies: anxiety, ataxia, confusion, headache, numbness. Hematologic/Endocrine: Denies: bruising, bleeding. Immunologic/Allergic: Denies: splenectomy. All Other Systems: Reviewed and Negative Allergies/Medications Allergies: Coded Allergies: oxycodone (From PERCOCET) (?PERCOCET - NAUSEA 01/01/16) codeine (GI UPSET 01/01/16) Home Med List: Albuterol Sulfate (Proair Hfa) 0.09 MG/Actuation ESE 2 PUFF INH Q6P PRN COPD (Reported) Allopurinol 300 MG TABLET 150 MG PO DAILY kidney stones (Reported) Ascorbate Calcium (Vitamin C) 500 MG TABLET 2 TAB PO DAILY SUPPLEMENT ( Reported) Aspirin (Ecotrin) 81 MG TABLET.DR 1 TAB PO DAILY HEART HEALTH (Reported) Cholecalciferol (Vitamin D3) 1,000 UNIT TABLET 1 TAB PO DAILY SUPPLEMENT ( Reported) Cyanocobalamin (Vitamin B12) 500 MCG TAB 1 TAB PO DAILY SUPPLEMENT (Reported) Ezetimibe (Zetia) 10 MG TABLET 1 TAB PO DAILY CHOLESTEROL (Reported) Fenofibrate 160 MG TAB 1 TAB PO DAILY CHOL (Reported) FLUTICASONE/SALMETEROL (Advair 250-50 Diskus) 250 MCG-50 MCG/DOSE BLST.W.DEV 1 PUF INH BID COPD (Reported) Furosemide 40 MG TABLET 1 TAB PO DAILY WATER PILL (Reported) HYDROCODONE/ACETAMINOPHEN (Hydrocodon-Acetaminophen 5-325) 5 MG-325 MG TABLET 1-2 TAB PO DAILY PAIN (Reported) Insulin Glargine, Recombinan (Lantus Solostar) 100 U/ML JAIME 30 UNITS SC AT BEDTIME DM (Reported) Insulin Lispro, Recombinant (Humalog) 100 U/ML HARSHIL 0 SC TIDAC/HS DIABETES ( Reported) BEFORE MEALS FS Units <120 (0) (121-150) (2) (151-200) (4) (201-250) (6) (251-300) (8) (301-350) (10) (351-400) (12) >400 Call Doctor AT BEDTIME FS Units <120 (0) (121-150) (0) (151-200) (0) (201-250) (0) (251-300) (1) (301-350) (2) (351-400) (3) >400 Call Doctor Liraglutide (Victoza 3-Richard) 0.6 MG/0.1 ML (18 MG/3 ML) PEN.INJCTR 1.8 mg SC DAILY DM (Reported) Losartan Potassium 100 MG TABLET 0.5 TAB PO DAILY HTN (Reported) Montelukast Sodium (Singulair) 5 MG TAB.CHEW 2 TAB PO DAILY ASTHMA (Reported) Omeprazole 40 MG CAPSULE.DR 1 CAP PO DAILY GERD (Reported) Pregabalin (Lyrica) 75 MG CAPSULE 1 CAP PO DAILY PAIN (Reported) Tiotropium [place] (Spiriva) 18 MCG CAP.W.DEV 1 CAP INH DAILY COPD (Reported) Past History Travel History Traveled to [place] past 21 day No Medical History Blood Transfusion Hx: No Neurological: dizziness EENT: NONE Cardiovascular: CHF, hypertension, hyperlipidemia Respiratory: asthma, COPD Gastrointestinal: NONE Hepatic: cholangitis Renal: NONE (stones) Musculoskeletal: CHRONIC BACK PAIN Psychiatric: NONE Endocrine: DIABETES (IDDM) Blood Disorders: NONE Cancer(s): NONE [employer]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 SISTER (emphysema). Relation not specified for: FH: brain cancer FH: colon cancer FH: diabetes mellitus FH: ischemic heart disease Psychosocial History Where Do You Live? Home Who Do You Live With? spouse Services at Home: None Primary Language: Macedonian Smoking Status: Former Smoker ETOH Use: occasional use Illicit Drug Use: denies illicit drug use Living Will? no Functional Ability ADLs Independent: dressing, eating, toileting, bathing. Ambulation: independent IADLs Independent: shopping, housework, finances, food prep, telephone, medication admin. Needs Assist: transportation. Employment History Employment: Retired Exam & Diagnostic Data Last 24 Hrs of Vital Signs/I&O Vital Signs Date Time Temp Pulse Resp B/P Pulse O2 O2 Flow FiO2 Ox Delivery Rate 11/18 1014 72 120/60 11/18 0823 97.5 72 20 120/60 98 Room Air 11/18 0000 94 Room Air Room Air 11/17 2357 98.0 74 20 128/44 93 Room Air 11/17 2045 95 Room Air 11/17 1713 94 Room Air 11/17 1600 96 Room Air 11/17 1549 97.8 78 19 142/70 96 Room Air Intake & Output 11/18 1600 11/18 0800 11/18 0000 Intake Total 120 600 Output Total Balance 120 600 Intake, Oral 120 600 Last 48 Hrs of Labs/Nirmal: Laboratory Tests 11/18/16 0750: Anion Gap 13, Estimated GFR 29 L, BUN/Creatinine Ratio 39.4 H 11/17/16 0820: Anion Gap 11, Estimated GFR 40 L, BUN/Creatinine Ratio 40.0 H, CBC w Diff NO MAN DIFF REQ, RBC 3.51 L, MCV 89.3, MCH 29.5, RDW 14.3, MPV 8.6, Gran % 91.3 H , Lymphocytes % 5.8 L, Monocytes % 2.9, Eosinophils % 0, Basophils % 0 L, Absolute Granulocytes 9.7 H, Absolute Lymphocytes 0.6 L, Absolute Monocytes 0.3, Absolute Eosinophils 0, Absolute Basophils 0, PUBS MCHC 33.0 11/16/16 1659: Assessment/Plan Impression/Plan: Physical Exam General Appearance Alert, Oriented X3, Cooperative, No Acute Distress Skin No Rashes, No Significant Lesion HEENT Atraumatic, PERRLA, Mucous Membr. moist/pink Neck Supple, No JVD Lymphatic Cervical nl Cardiovascular Regular Rate, Normal S1, Normal S2 Lungs Diffuse wheezing in all lung guillory, rhonchi appreciated in left lower lobe. Abdomen Normal Bowel Sounds, Soft, No Tenderness, No Hepatospenomegaly, No Masses Neurological Normal Speech, Strength at 5/5 X4 Ext, Normal Tone Extremities No Clubbing, No Cyanosis, 1+ pitting edema of bilateral lower extremities. Vascular Pulses Symmetrical SIGNIFICANT DATA Previous echocardiogram that showed normal ejection fraction unable to estimate pulmonary artery pressure Chest x-ray showed left lower lobe infiltrate Previous chest x-ray done on 16 showed no dense consolidation bronchial wall thickening consistent with small airway disease Previous CT scan done in 2014 had shown a 2 mm left upper lobe lung nodule with groundglass opacity in the lingula Creatinine is elevated at 1.7 potassium is slightly elevated at 5.3 Blood work upon admission showed left shift with the hemoglobin of 10.4 platelets of 246 previous CABG had not revealed any hypercarbia Sputum culture is pending but gram-positive cocci few in pairs noted upon admission Strep pneumo antigen negative IMPRESSION This is a lady with 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 with moderate COPD with mild ILD which has been stable for years with previous history of GERD and hiatal hernia now comes in with * Left lower lobe infiltrate consistant with pna * Acute exacerbation of chronic obstructive pulmonary disease with an asthmatic component * Mild interstitial lung disease which is stable * Previous hyperglycemia due to steroids * Mild mitral stenosis * CKD due to HTN and DM * Morbid obesisty * COnstipation REC RPt cxr today Cont abx and will change to po in am Sputum Prob sugg of strep pneumo Can dc azithro after three doses Will watch potassium and creatinine Prob needs to hold losartan till she is stable Reduce prednisone to 40 mg Ambulate and check sats COnt nebs tid atc and prn Change nebs to albuterol Start spiriva Prior to dc will start symbicort or advair Rx constipation aggresively Consult Acknowledgment - Thank you for your consult request.
[2016-11-18 16:05] VITALS: BP 110/68
--- NOTE | 2016-11-18 16:23 | ULTRASOUND REPORT ---
EXAMINATION: US RETROPERITONEAL COMPLETE (RENAL) CLINICAL INFORMATION: Hyperkalemia, history of kidney stones and worsening renal function.. COMPARISON: 03/29/2016 TECHNIQUE: Real-time imaging of the kidneys and bladder. FINDINGS: RIGHT KIDNEY: 11.4 x 6.1 x 5.3 cm (SAG x AP x TRV). The kidney has normal cortical echotexture. There is chronic, mild atrophy of renal cortex without evidence of focal parenchymal lesion. There are no sonographically visible renal calculi. No hydronephrosis. LEFT KIDNEY: 11.8 x 6.2 x 5.2 cm (SAG x AP x TRV). The kidney has normal cortical echotexture. There is chronic, mild generalized atrophy of the renal cortex. A 1.3 x 1.2 x 1.6 cm simple appearing cortical cyst is present within the lower pole. There are no visible renal calculi. BLADDER: Urinary bladder is distended to an estimated volume of 162 mL. No bladder debris or bladder calculi. The ureteral jets were not visualized during the time of imaging. IMPRESSION: 1. Chronic, mild bilateral renal cortical atrophy. 2. No sonographically visible renal calculi. 3. No evidence of obstructive uropathy.
[2016-11-18 22:33] VITALS: BP 128/82
--- NOTE | 2016-11-18 23:07 | RADIOLOGY REPORT ---
EXAMINATION: XR CHEST CLINICAL INFORMATION: COPD exacerbation/pneumonia. COMPARISON: Chest x-ray 11/15/2015 TECHNIQUE: PA and lateral views of the chest were obtained. FINDINGS: Symmetric lung inflation. No focal consolidation, pleural effusion, or pneumothorax. Linear atelectasis at the lung bases. Cardiac silhouette size is normal. Atherosclerotic calcification within the aortic arch. No acute osseous findings. IMPRESSION: Bibasilar atelectasis. No focal pneumonia.
[2016-11-19 06:24] VITALS: BP 138/82
--- NOTE | 2016-11-19 06:57 | PN- Housestaff ---
See Addendum Subjective Follow-up For: CAP COPD exacerbation Subjective: Patient seen and examined at bedside this AM. She reports she continues to feel constipated despite having an enema earlier this morning. She does report improvement of her chills and malaise and would be will to be discharged tomorrow. She is concerned about the discontinuation of her lasix and losartan in the setting of worsening renal function, but she was more understanding upon explanation of the rational for doing so. Review of Systems Constitutional: Denies: chills, fever, malaise, weakness. EENTM: Denies: blurred vision, visual changes, hearing changes, nasal congestion. Cardiovascular: Reports: peripheral edema. Denies: chest pain, palpitations. Respiratory: Reports: cough, short of breath, sputum production. Gastrointestinal: Reports: constipation. Denies: abdominal pain, bloating, diarrhea, melena, nausea, vomiting. Genitourinary: Denies: dysuria, frequency, hematuria. Musculoskeletal: Denies: back pain, joint pain. Skin: Denies: change in skin color, change in hair/nails. Neurological/Psychological: Denies: confusion, headache, numbness. Hematologic/Endocrine: Denies: bruising, bleeding. Objective Last 24 Hrs of Vital Signs/I&O Vital Signs Date Time Temp Pulse Resp B/P Pulse O2 O2 Flow FiO2 Ox Delivery Rate 11/19 0800 Room Air 11/19 0624 97.8 81 20 138/82 96 Room Air 11/19 0000 Room Air 11/18 2233 97.5 82 20 128/82 96 Room Air 11/18 1900 96 Room Air 11/18 1605 97.6 81 18 110/68 94 11/18 1600 Room Air Intake & Output 11/19 1600 11/19 0800 11/19 0000 Intake Total 600 225 Output Total Balance 600 225 Intake, IV 600 225 Physical Exam General Appearance: Alert, Oriented X3, Cooperative, No Acute Distress Skin: No Rashes, No Significant Lesion HEENT: Atraumatic, Mucous Membr. moist/pink Neck: Supple Lymphatic: Cervical nl Cardiovascular: Normal S1, Normal S2 Lungs: Rhonchi noted in left lower lobe, occasional wheeze appreciated bilaterally Abdomen: Normal Bowel Sounds, Soft, No Tenderness Neurological: Normal Gait, Normal Speech, Normal Tone Extremities: No Clubbing, No Cyanosis, Mild bilateral lower extremity edema appreciated Current Medications: Current Medications Sig/Jose Start time Last Medication Dose Route Stop Time Status Admin Acetaminophen/ See Dose DAILY 11/16 1000 AC 11/19 Hydrocodone Bitart Insts (1) PO 0942 Albuterol Sulfate 3 ML TID 11/18 1600 AC 11/19 INH 0757 Albuterol Sulfate 2 PUF Q4P PRN 11/18 1400 AC INH Albuterol Sulfate 3 ML EVERY 4 HRS/AWAKE 11/15 2000 DC 11/18 INH 1345 Allopurinol 150 MG DAILY 11/16 1000 AC 11/19 PO 0934 Amoxicillin/ 500 MG Q12 11/19 1000 AC 11/19 Clavulanate Potassium PO 0934 Ascorbic Acid 500 MG BID 11/15 2200 AC 11/19 PO 0935 Aspirin Buffered 81 MG DAILY 11/16 1000 AC 11/19 PO 0936 Azithromycin 500 MG DAILY 11/16 1000 DC 11/18 Dextrose/Water 250 ML IV 0957 Bisacodyl 10 MG DAILY PRN 11/18 1145 AC 11/19 [place] 0614 Budesonide/ 2 PUF BID 11/15 2200 DC 11/18 Formoterol Fumarate INH 0956 Ceftriaxone Sodium 1,000 MG DAILY 11/16 1000 DC 11/18 IV 11/19 0000 0957 Cholecalciferol 1,000 IU DAILY 11/16 1000 AC 11/19 PO 0934 Cyanocobalamin 250 MCG DAILY 11/16 1000 AC 11/19 PO 0934 Docusate Sodium 100 MG DAILY NEEDED PRN 11/19 0745 AC 11/19 PO 0933 Ezetimibe 10 MG DAILY 11/16 1000 DC 11/19 PO 0934 Fenofibrate 145 MG DAILY 11/16 1000 AC 11/19 PO 0935 Guaifenesin 600 MG Q12 11/15 2200 AC 11/19 PO 0935 Heparin Sodium 5,000 UNIT Q8 11/15 2200 AC 11/19 (Porcine) SC 0609 Insulin Aspart 0 TIDAC 11/15 1700 AC 11/19 SC 0807 Insulin Detemir 15 UNITS BID 11/15 220 AC 11/19 SC 0807 Montelukast Sodium 10 MG AT BEDTIME 11/15 2200 AC 11/18 PO 2152 Omeprazole 40 MG DAILY AC 11/16 0700 AC 11/19 PO 0609 Polyethylene Glycol 17 GM DAILY 11/18 1326 AC 11/19 PO 0933 Prednisone 40 MG DAILY 11/19 1000 AC 11/19 PO 0935 Prednisone 60 MG DAILY 11/18 1000 DC 11/18 PO 0954 Pregabalin 75 MG QPM 11/19 2200 AC PO Pregabalin 75 MG DAILY 11/16 1000 DC 11/18 PO 1008 Ramelteon 8 MG AT BEDTIME 11/15 2200 AC 11/18 PO 2152 Senna/Docusate Sodium 1 TAB BID PRN 11/17 1015 AC 11/17 PO 1208 Sodium Chloride 1,000 ML Q13H 11/18 1100 DC 11/19 IV 0150 Tiotropium [place] 1 PUF DAILY 11/18 1253 AC 11/19 INH 0934 Dose Instructions: (1)Acetaminophen/Hydrocodone Bitart: 1-2 TAB Last 24 Hrs of Lab/Nirmal Results Last 24 Hrs of Labs/Mics: Laboratory Tests 11/19/16 0845: Anion Gap 13, Estimated GFR 34 L, BUN/Creatinine Ratio 35.3 H Orders Radiology Findings: Repeat CXR on 11/18/16 EXAMINATION: XR CHEST CLINICAL INFORMATION: COPD exacerbation/pneumonia. COMPARISON: Chest x-ray 11/15/2015 TECHNIQUE: PA and lateral views of the chest were obtained. FINDINGS: Symmetric lung inflation. No focal consolidation, pleural effusion, or pneumothorax. Linear atelectasis at the lung bases. Cardiac silhouette size is normal. Atherosclerotic calcification within the aortic arch. No acute osseous findings. IMPRESSION: Bibasilar atelectasis. No focal pneumonia. Miscellaneous Findings: EXAMINATION: US RETROPERITONEAL COMPLETE (RENAL) CLINICAL INFORMATION: Hyperkalemia, history of kidney stones and worsening renal function.. COMPARISON: 03/29/2016 TECHNIQUE: Real-time imaging of the kidneys and bladder. FINDINGS: RIGHT KIDNEY: 11.4 x 6.1 x 5.3 cm (SAG x AP x TRV). The kidney has normal cortical echotexture. There is chronic, mild atrophy of renal cortex without evidence of focal parenchymal lesion. There are no sonographically visible renal calculi. No hydronephrosis. LEFT KIDNEY: 11.8 x 6.2 x 5.2 cm (SAG x AP x TRV). The kidney has normal cortical echotexture. There is chronic, mild generalized atrophy of the renal cortex. A 1.3 x 1.2 x 1.6 cm simple appearing cortical cyst is present within the lower pole. There are no visible renal calculi. BLADDER: Urinary bladder is distended to an estimated volume of 162 mL. No bladder debris or bladder calculi. The ureteral jets were not visualized during the time of imaging. IMPRESSION: 1. Chronic, mild bilateral renal cortical atrophy. 2. No sonographically visible renal calculi. 3. No evidence of obstructive uropathy. Assessment/Plan Assessment: Ms. Cho is a pleasant 76 year old female with PMH COPD not on home O2 followed by Dr. Ramesh, mild interstitial pulmonary fibrosis, asthma, osteoarthritis on lyrica, HTN, HLD, GERD, diabetes, chronic low back pain and kidney stones who presents with a 10 day history of cough with shortness of breath. Patient had previously seen Dr. Ramesh on Friday and was prescribed mucinex without much relief. Since this time, she has become more lethargic and her cough has been productive of yellow sputum. Associated symptoms include chills, decreased oral intake and constipation. In the ED: Vital signs show T 98.2, HR 99, BP 189/74, RR 18 and O2 saturation of 94% on RA. Labs show leukocytosis to 13.1 without bandemia, anemia to 11.2/33.9 and renal dysfunction to 34/1.3 (baseline 1.2). CXR showed lower lobe pneumonia most likely left lower lobe. Patient was admitted to the general medicine floor and the following is the management: 1. COPD exacerbation * Patient saturating well on room air, though diffuse wheezing appreciated, provide supplemental O2 as needed to keep O2 sat >92% * Continue 40 mg PO prednisone daily, will taper patient as instructed by pulm * Continue home inhalers, including montelukast and MDI * TRC nebs * Mucinex 600 mg Q8h * Spiriva started, nebs changed to albuterol, symbicort discontinued 2. 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 * The worsening renal function was associated with mild hyperkalemia to 5.3 ( which has since normalized to 4.9) * IV fluids discontinued today, lasix continues to be on hold, we are currently holding losartan as well in setting of OMAIRA on CKD * Bilateral renal US ordered to r/o obstruction, shows only mild renal cortical atrophy, no evidence of stones/obstruction * Continue allopurinol for renal stones 4. DM type 2 * Accuchecks TIDACHS * NSS * Levemir 15 U SC BID 5. ? CHF, HTN, HLD * Cotninue losartan 50 mg PO daily * Lasix 40 mg PO daily * Tricor 145 mg PO daily * Zetia 10 mg PO daily has been discontinued as patient denies taking it at home * ASA 81 mg PO daily 6. Sleep * Continue rozerem as patient reports this is helping her greatly, she is requesting this medication after discharge FULL CODE DVTP: Heparin SC CC3 diet Problem List: 1. COPD with acute exacerbation 2. Diastolic CHF 3. Full code status 4. DVT prophylaxis 5. HLD (hyperlipidemia) 6. GERD (gastroesophageal reflux disease) 7. Benign essential hypertension Pain Ratin Pain Location: n/a Pain Goal: Remain pain free Pain Plan: Mild pain pathway Tomorrow's Labs & Rationales: BEP (monitor renal function in setting of OMAIRA and recent hyperkalemia)
[2016-11-19] MEDS ORDERED: ROZEREM8 M1 PO (09:55)
--- NOTE | 2016-11-19 09:58 | Patient Discharge Instructions ---
Discharge Instructions General Discharge Information You were seen/treated for: Pneumonia COPD exacerbation Special Instructions: Please follow up with your PCP within 7 days for continued care. Please discuss with your PCP the abnormal renal function on lab results and the fact that we discontinued losartan and lasix on discharge. Please have your labs checked tomorrow and send results to both your PCP and Dr. Ramesh. Please follow up with nephrology within 1 week. (Dr. Pepper, [phone], this is the number to schedule an appt). Please use tighter compression stockings and leg elevation for lower extremity edema. Please follow up with Dr. Ramesh within 1 week for continued pulmonary follow up. Please take all medications as directed. Please continue taking your laxative at home. Diet Recommended Diet: Diabetic Activity Activity Self Limited: Yes Acute Coronary Syndrome Inclusion Criteria At DC or during hospital stay patient has or had the following: ACS DIAGNOSIS No Discharge Core Measures Meds if any: Prescribed or Continued at Discharge Meds if any: NOT Prescribed or Continued at Discharge Congestive Heart Failure Inclusion Criteria At DC or during hospital stay patient has or had the following: CHF DIAGNOSIS No Discharge Core Measures Meds if any: Prescribed or Continued at Discharge Meds if any: NOT Prescribed or Continued at Discharge Cerebrovascular accident Inclusion Criteria At DC or during hospital stay patient has or had the following: CVA/TIA Diagnosis No Discharge Core Measures Meds if any: Prescribed or Continued at Discharge Meds if any: NOT Prescribed or Continued at Discharge Venous thromboembolism Inclusion Criteria VTE Diagnosis No VTE Type NONE VTE Confirmed by (Test) NONE Discharge Core Measures - Per Current guidelines, there needs to be overlap - treatment for the first 5 days of Warfarin therapy. - If discharged on Warfarin prior to 5 days of - overlap therapy, the patient will need to be - assessed for post discharge needs including - *Post discharge parental anticoagulation - *Warfarin and/or parental anticoagulation education - *Follow up date to check INR post discharge At least 5 days overlap therapy as Inpatient No Meds if any: Prescribed or Continued at Discharge Note: Overlap Therapy is Warfarin and Anticoagulant Meds if any: NOT Prescribed or Continued at Discharge
--- NOTE | 2016-11-19 11:39 | PN- Pulmonary ---
Subjective HPI/Critical Care Issues: Feels better Still has a cough fatigued, She reports she continues to feel constipated despite having an enema earlier this morning. She does report improvement of her chills and malaise and would be will to be discharged tomorrow. Review of Systems Constitutional: Denies: chills, fever, malaise, weakness. EENTM: Denies: blurred vision, visual changes, hearing changes, nasal congestion. Cardiovascular: Reports: peripheral edema. Denies: chest pain, palpitations. Respiratory: Reports: cough, short of breath, sputum production. Gastrointestinal: Reports: constipation. Denies: abdominal pain, bloating, diarrhea, melena, nausea, vomiting. Genitourinary: Denies: dysuria, frequency, hematuria. Musculoskeletal: Denies: back pain, joint pain. Skin: Denies: change in skin color, change in hair/nails. Neurological/Psychological: Denies: confusion, headache, numbness. Hematologic/Endocrine: Denies: bruising, bleeding. Objective Current Medications: Current Medications Sig/Jose Start time Last Medication Dose Route Stop Time Status Admin Acetaminophen/ See Dose DAILY 11/16 1000 AC 11/19 Hydrocodone Bitart Insts (1) PO 0942 Albuterol Sulfate 3 ML TID 11/18 1600 AC 11/19 INH 0757 Albuterol Sulfate 2 PUF Q4P PRN 11/18 1400 AC INH Albuterol Sulfate 3 ML EVERY 4 HRS/AWAKE 11/15 2000 DC 11/18 INH 1345 Allopurinol 150 MG DAILY 11/16 1000 AC 11/19 PO 0934 Amoxicillin/ 500 MG Q12 11/19 1000 AC 11/19 Clavulanate Potassium PO 0934 Ascorbic Acid 500 MG BID 11/15 2200 AC 11/19 PO 0935 Aspirin Buffered 81 MG DAILY 11/16 1000 AC 11/19 PO 0936 Azithromycin 500 MG DAILY 11/16 1000 DC 11/18 Dextrose/Water 250 ML IV 0957 Bisacodyl 10 MG DAILY PRN 11/18 1145 AC 11/19 [place] 0614 Budesonide/ 2 PUF BID 11/15 2200 DC 11/18 Formoterol Fumarate INH 0956 Ceftriaxone Sodium 1,000 MG DAILY 11/16 1000 DC 11/18 IV 11/19 0000 0957 Cholecalciferol 1,000 IU DAILY 11/16 1000 AC 11/19 PO 0934 Cyanocobalamin 250 MCG DAILY 11/16 1000 AC 11/19 PO 0934 Docusate Sodium 100 MG DAILY NEEDED PRN 11/19 0745 AC 11/19 PO 0933 Ezetimibe 10 MG DAILY 11/16 1000 DC 11/19 PO 0934 Fenofibrate 145 MG DAILY 11/16 1000 AC 11/19 PO 0935 Guaifenesin 600 MG Q12 11/15 2200 AC 11/19 PO 0935 Heparin Sodium 5,000 UNIT Q8 11/15 2200 AC 11/19 (Porcine) SC 0609 Insulin Aspart 0 TIDAC 11/15 1700 AC 11/19 SC 0807 Insulin Detemir 15 UNITS BID 11/15 2200 AC 11/19 SC 0807 Montelukast Sodium 10 MG AT BEDTIME 11/15 2200 AC 11/18 PO 2152 Omeprazole 40 MG DAILY AC 11/16 0700 AC 11/19 PO 0609 Polyethylene Glycol 17 GM DAILY 11/18 1326 AC 11/19 PO 0933 Prednisone 40 MG DAILY 11/19 1000 AC 11/19 PO 0935 Prednisone 60 MG DAILY 11/18 1000 DC 11/18 PO 0954 Pregabalin 75 MG QPM 11/19 2200 AC PO Pregabalin 75 MG DAILY 11/16 1000 DC 11/18 PO 1008 Ramelteon 8 MG AT BEDTIME 11/15 2200 AC 11/18 PO 2152 Senna/Docusate Sodium 1 TAB BID PRN 11/17 1015 AC 11/17 PO 1208 Sodium Chloride 1,000 ML Q13H 11/18 1100 DC 11/19 IV 0150 Tiotropium [place] 1 PUF DAILY 11/18 1253 AC 11/19 INH 0934 Dose Instructions: (1)Acetaminophen/Hydrocodone Bitart: 1-2 TAB Vital Signs & I&O Last 24 Hrs of Vitals and I&O: Vital Signs Date Time Temp Pulse Resp B/P Pulse O2 O2 Flow FiO2 Ox Delivery Rate 11/19 0800 Room Air 11/19 06 97.8 81 20 138/82 96 Room Air 11/19 0000 Room Air 11/18 2232 97.5 82 20 128/82 96 Room Air 11/18 1900 96 Room Air 11/18 1605 97.6 81 18 110/68 94 11/18 1600 Room Air Intake & Output 11/19 1600 11/19 0800 01/24 0000 Intake Total 600 225 Output Total Balance 600 225 Intake, IV 600 225 Impression/Plan Impression/Plan Impression/Plan: Physical Exam General Appearance Alert, Oriented X3, Cooperative, No Acute Distress Skin No Rashes, No Significant Lesion HEENT Atraumatic, PERRLA, Mucous Membr. moist/pink Neck Supple, No JVD Lymphatic Cervical nl Cardiovascular Regular Rate, Normal S1, Normal S2 Lungs Diffuse wheezing in all lung guillory, rhonchi appreciated in left lower lobe. Abdomen Normal Bowel Sounds, Soft, No Tenderness, No Hepatospenomegaly, No Masses Neurological Normal Speech, Strength at 5/5 X4 Ext, Normal Tone Extremities No Clubbing, No Cyanosis, 1+ pitting edema of bilateral lower extremities. Vascular Pulses Symmetrical SIGNIFICANT DATA Previous echocardiogram that showed normal ejection fraction unable to estimate pulmonary artery pressure Chest x-ray showed left lower lobe infiltrate Previous chest x-ray done on 16 showed no dense consolidation bronchial wall thickening consistent with small airway disease Previous CT scan done in 2014 had shown a 2 mm left upper lobe lung nodule with groundglass opacity in the lingula Creatinine is elevated at 1.7 potassium is slightly elevated at 5.3 Blood work upon admission showed left shift with the hemoglobin of 10.4 platelets of 246 previous CABG had not revealed any hypercarbia Sputum culture is pending but gram-positive cocci few in pairs noted upon admission Strep pneumo antigen negative IMPRESSION This is a lady with 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 with moderate COPD with mild ILD which has been stable for years with previous history of GERD and hiatal hernia now comes in with * Left lower lobe infiltrate consistant with pna vs atx now better in cxr * Improving Acute exacerbation of chronic obstructive pulmonary disease with an asthmatic component * Mild interstitial lung disease which is stable * Previous hyperglycemia due to steroids * Mild mitral stenosis * 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
[2016-11-19] MEDS ORDERED: PREDNISONE10 M2 PR (12:07)
--- NOTE | 2016-11-19 13:21 | Discharge Summary ---
Visit Information Visit Dates Admission Date: 11/15/16 Discharge Date: 11/20/16 Hospital Course Course Attending Physician: JANET BOLANOS M.D Primary Care Physician: DEEPA WATSON MD Consulting Request: Consulting Specialty: Pulmonary Disease Consulting Physician: Dr. Ramesh Reason for Consult: COPD exacerbation Hospital Course: Ms. Cho is a pleasant 76 year old female with PMH COPD not on home O2 followed by Dr. Ramseh, mild interstitial pulmonary fibrosis, asthma, osteoarthritis on lyrica, HTN, HLD, GERD, diabetes, chronic low back pain and kidney stones who presents with a 10 day history of cough with shortness of breath. Patient had previously seen Dr. Ramesh on Friday and was prescribed mucinex without much relief. Since that time, she had become more lethargic and her cough was then been productive of yellow sputum. Associated symptoms included chills, decreased oral intake and constipation. In the ED: Vital signs show T 98.2, HR 99, BP 189/74, RR 18 and O2 saturation of 94% on RA. Labs show leukocytosis to 13.1 without bandemia, anemia to 11.2/33.9 and renal dysfunction to 34/1.3 (baseline 1.2). CXR showed lower lobe pneumonia most likely left lower lobe. Physical exam showed: General Appearance: Alert, Oriented X3, Cooperative, No Acute Distress Skin No Rashes, No Significant Lesion HEENT Atraumatic, PERRLA, Mucous Membr. moist/pink Neck Supple, No JVD Lymphatic Cervical nl Cardiovascular Regular Rate, Normal S1, Normal S2 Lungs Diffuse wheezing in all lung guillory, rhonchi appreciated in left lower lobe. Abdomen Normal Bowel Sounds, Soft, No Tenderness, No Hepatospenomegaly, No Masses Neurological Normal Speech, Strength at 5/5 X4 Ext, Normal Tone Extremities No Clubbing, No Cyanosis, 1+ pitting edema of bilateral lower extremities. Vascular Pulses Symmetrical Patient was admitted to the general medicine floor and the following is the management: 1. Acute exacerbation of COPD with asthmatic component: Patient was admitted to the general medicine floor on room air. She was placed on IV solumedrol 40 mg Q6h due to significant wheezing appreciated on examination. Mucinex, nebulizers and home inhalers continued. Patient's oral surgery technician Dr. Ramesh was consulted. He suggested follow up CXR which showed bibasilar atelectasis and improvement of pneumonia. He suggested continuing spiriva and symbicort. He agreed with continued taper of solumedrol to PO prednisone. Patient noted to have great improvement of respiratory status during her stay and she was discharged with a steroid taper to complete. She is discharged with instructions to continue all home COPD medications/inhalers and to follow up with Dr. Ramesh within 1 week. 2. Community acquired PNA: Patient noted to have initial CXR with findings concerning for left lower lobe PNA. Patient blair cultured and daily CBC monitored for leukocytosis. LRC showed mixed manolo and urine was negative for legionella/ strep antigen. Lactic acid normal on admission. Patient initially started on IV ceftrixone and azithromycin. Dr. Ramesh suggested discontinuation of IV azithromycin after 3 doses which was done. Patient was continued on IV ceftriazone until switched over to PO augmentin for a total of 5 days antibiotic therapy. As above, patient continued on TRC nebs and supplemental oxygen as needed. Follow up CXR showed resolution of initial patchy airspace disease. She should follow up closely with her PCP for continued care. 3. Acute on chronic kidney disease: Patient has baseline stage 3 CKD, however during the admission she was noted to have an acute change in renal function. Her BUN/cre peaked at 67/1.7 and this was associated with mild hyperkalemia. Lasix and losartan discontinued at this time. Hyperkalemia and OMAIRA initially treated with IV fluids. She again had hyperkalemia on 11/20/16 to 5.3 which was treated with kayexalate. Both lasix and losartan were held and continue to remain on hold on discharge. Patient should follow up with her PCP for discussion on when to restart diuresis and she should have her blood pressure checked closely as we initiated amlodipine 5 mg PO daily for BP control. Patient is to have a BEP checked on 11/21/16 to monitor K and renal function. These results will be sent to Dr. Watson and Dr. Ramesh. 4. DM type 2: Patient's home antidiabetic regimen held on admission and she was placed on a novolog sliding scale. She also had 15 U BID SC levemir added to this regimen. She had fingerchecks with meals and before bed. Her fingersticks remained well controlled and patient discharged on her home diabetic regimen. 5. HTN, HLD: Patient was continued on tricor and aspirin daily. Patient reports she does not take zetia and this was removed from her daily regimen. Losartan and lasix discontinued due to renal dysfunction and hyperkalemia. She was started on amlodipine 5 mg PO daily for blood pressure maitenance. 6. DVT Prophylaxis: Heparin SC 7. Code: FULL Allergies: Coded Allergies: oxycodone (From PERCOCET) (?PERCOCET - NAUSEA 01/01/16) codeine (GI UPSET 01/01/16) Significant Procedures: EXAMINATION: XR CHEST CLINICAL INFORMATION: Shortness of breath. COMPARISON: 11/11/2016. TECHNIQUE: PA and lateral views of the chest were obtained. FINDINGS: The cardiomediastinal silhouette is within normal limits. There is new developing patchy opacity overlying the spine in the costophrenic angle inferiorly concerning for developing infiltrate and pneumonia given the patient's symptoms. It is uncertain if this is at the left or right lung base, clinical correlation recommended, however I believe it is more likely in the left costophrenic angle posteriorly. This could also represent some atelectasis. Follow-up to clearing is recommended. The lungs and pleural spaces otherwise appear clear. There is no evidence of pneumothorax or pulmonary edema. Included osseous structures appear largely unremarkable. IMPRESSION: Findings concerning for lower lobe pneumonia most likely left lower lobe. Follow-up imaging is recommended. EXAMINATION: US RETROPERITONEAL COMPLETE (RENAL) CLINICAL INFORMATION: Hyperkalemia, history of kidney stones and worsening renal function.. COMPARISON: 03/29/2016 TECHNIQUE: Real-time imaging of the kidneys and bladder. FINDINGS: RIGHT KIDNEY: 11.4 x 6.1 x 5.3 cm (SAG x AP x TRV). The kidney has normal cortical echotexture. There is chronic, mild atrophy of renal cortex without evidence of focal parenchymal lesion. There are no sonographically visible renal calculi. No hydronephrosis. LEFT KIDNEY: 11.8 x 6.2 x 5.2 cm (SAG x AP x TRV). The kidney has normal cortical echotexture. There is chronic, mild generalized atrophy of the renal cortex. A 1.3 x 1.2 x 1.6 cm simple appearing cortical cyst is present within the lower pole. There are no visible renal calculi. BLADDER: Urinary bladder is distended to an estimated volume of 162 mL. No bladder debris or bladder calculi. The ureteral jets were not visualized during the time of imaging. IMPRESSION: 1. Chronic, mild bilateral renal cortical atrophy. 2. No sonographically visible renal calculi. 3. No evidence of obstructive uropathy. Disposition Summary Disposition Principal Diagnosis: Community acquired pneumonia COPD exacerbation Acute on chronic kidney injury Additional Diagnosis: DM type 2 HTN HLD Discharge Disposition: home or self care Discharge Instructions General Discharge Information Code Status: Full Code Patient's Diet: Consistent carbohydrate 3. Patient's Activity: Self-limited, as tolerated. Follow-Up Instructions/Appts: Patient has been advised to have her serum chemistry checked on 11/21/2016 for monitoring of her potassium level. She is to follow-up with her oral surgery technician next week and keep her appointment with her primary care provider. Her losartan and Lasix were held during this admission on account of her OMAIRA and hyperkalemia. She will follow-up with her primary care provider regarding need to reinstitute her diuretics as an outpatient. Medications at Discharge Discharge Medications: Stop taking the following medications: Furosemide (Furosemide) 40 MG TABLET ORAL DAILY Losartan Potassium (Losartan Potassium) 100 MG TABLET ORAL DAILY Continue taking these medications: Omeprazole (Omeprazole) 40 MG CAPSULE.DR 1 Capsule ORAL DAILY Qty = 90 Comments: Last Taken: 08/16/15 Time: 600 AM Liraglutide (Victoza 3-Richard) 0.6 MG/0.1 ML (18 MG/3 ML) PEN.INJCTR 1.8 mg Inject into fatty tissue DAILY Qty = 27 Tiotropium [place] (Spiriva) 18 MCG CAP.W.DEV 1 Capsule Inhale through mouth DAILY Qty = 90 Comments: Last Taken: 08/16/15 Time: 0930 AM Montelukast Sodium (Singulair) 5 MG TAB.CHEW 2 Tablet ORAL DAILY Qty = 90 Comments: Last Taken: 08/15/15 Time: 1O PM FLUTICASONE/SALMETEROL (Advair 250-50 Diskus) 250 MCG-50 MCG/DOSE BLST.W.DEV 1 Puff Inhale through mouth TWICE DAILY Qty = 60 Comments: Last Taken: 08/16/15 Time: 930 AM Fenofibrate (Fenofibrate) 160 MG TAB 1 Tablet ORAL DAILY Qty = 90 Comments: Last Taken: 08/16/15 Time: 930 AM Aspirin (Ecotrin) 81 MG TABLET.DR 1 Tablet ORAL DAILY Comments: Last Taken: 08/16/15 Time: 930 AM Insulin Lispro, Recombinant (Humalog) 100 U/ML HARSHIL 0 Inject into fatty tissue BEFORE MEALS AND AT BEDTIME Instructions: BEFORE MEALS FS Units <120 (0) (121-150) (2) (151-200) (4) (201-250) (6) (251-300) (8) (301-350) (10) (351-400) (12) >400 Call Doctor AT BEDTIME FS Units <120 (0) (121-150) (0) (151-200) (0) (201-250) (0) (251-300) (1) (301-350) (2) (351-400) (3) >400 Call Doctor Comments: Last Taken: 08/16/15 Time: 12 PM Albuterol Sulfate (Proair Hfa) 90 MCG HFA.AER.AD Comments: LAST GIVEN 11/10/16 @ 0811 Cholecalciferol (Vitamin D3) 1,000 UNIT TABLET 1 Tablet ORAL DAILY Comments: Last Taken: 08/16/15 Time: 930 AM Cyanocobalamin (Vitamin B12) 500 MCG TAB 1 Tablet ORAL DAILY Comments: Last Taken: 08/16/15 Time: 930 AM Insulin Glargine, Recombinan (Lantus Solostar) 100 U/ML JAIME 30 Units Inject into fatty tissue AT BEDTIME Comments: RECEIVED 15 UNITS OF LEVEMIR THIS AM HYDROCODONE/ACETAMINOPHEN (Hydrocodon-Acetaminophen 5-325) 5 MG-325 MG TABLET 1-2 Tablet ORAL DAILY Pregabalin (Lyrica) 75 MG CAPSULE 1 Capsule ORAL DAILY Ascorbate Calcium (Vitamin C) 500 MG TABLET 2 Tablet ORAL DAILY Allopurinol (Allopurinol) 300 MG TABLET 150 Milligram ORAL DAILY Start taking the following new medications: Ramelteon (Rozerem) 8 MG TABLET 1 Tablet ORAL Every night as needed as needed for SLEEP Qty = 30 Refills = 1 Comments: LAST GIVN 11/19/16 @ 2148 Prednisone (Prednisone) 10 MG TABLET 0 RECTALLY See Instructions Qty = 12 No Refills Instructions: 11/21/16-11/22/16 take 3 tabs daily 11/23/16-11/24/16 take 2 tabs daily 11/25/16-11/26/16 take 1 tab daily THEN STOP. Comments: LAST GIVEN 11/20/16 @ 0910 Amlodipine Besylate (Amlodipine Besylate) 5 MG TABLET 1 Tablet ORAL DAILY Qty = 30 Refills = 1 Comments: LAST GIVEN 11/20/16 @ 0910 Copies To: JAH BANDA,RICK Velasquez; HARLEEN BANDA,DEEPA Velasquez Attending MD Review Statement Documenting Attending: JANET BOLANOS M.D Other Findings: Patient seen and examined today resting comfortably and not in acute distress. She offers no respiratory complaints today. Her ARB and diuretic were held during this admission on account of her OMAIRA and hyperkalemia. She is to follow-up with her primary care provider as an outpatient regarding reinstitution of her diuretic therapy. Her renal function has been improving with disruption of his medications. She is mildly hypokalemic today. She was given a dose of Kayexalate and asked to follow-up tomorrow for repeat blood work to monitor her potassium level. She is to follow-up with building coordinator of Rick Ramesh MD next week.
[2016-11-19] MEDS ORDERED: AMLODIPINE BESYL5 M1 PO (15:56)
[2016-11-19 16:06] VITALS: BP 138/74
--- NOTE | 2016-11-19 17:44 | NUR ---
1600 ALERT AND ORIENTED X 3. VITAL SIGNS STABLE. ON ROOM AIR NO DISCOMFORT NOTED AT THIS TIME 1730 SHAKE LOADER AWARE OF BLOOD SUGAR OF 375. INSULIN GIVEN. WILL CONTINUE TO MONITOR
[2016-11-20 00:03] VITALS: BP 130/80
--- NOTE | 2016-11-20 06:43 | PN- Housestaff ---
Subjective Follow-up For: CAP COPD exacerbation Subjective: Patient seen and examined at bedside this AM. She reports she feels well after having a bowel movement this AM. She feels well to go home. Review of Systems Constitutional: Denies: chills, fever, malaise. EENTM: Denies: blurred vision, visual changes, hearing changes. Cardiovascular: Denies: chest pain, palpitations. Respiratory: Reports: cough (Occasionally), short of breath (On exertion). Gastrointestinal: Denies: abdominal pain, constipation, diarrhea. Genitourinary: Denies: dysuria. Musculoskeletal: Denies: back pain. Skin: Denies: change in skin color, change in hair/nails. Hematologic/Endocrine: Denies: bruising, bleeding. Objective Last 24 Hrs of Vital Signs/I&O Vital Signs Date Time Temp Pulse Resp B/P Pulse O2 O2 Flow FiO2 Ox Delivery Rate 11/20 0911 79 170/80 11/20 0830 94 Room Air Room Air 11/20 0827 98.2 79 20 170/80 95 Room Air 11/20 0003 97.2 69 20 130/80 95 Room Air 11/20 0000 Room Air 11/19 1945 94 Room Air 11/19 1851 73 120/75 11/19 1606 98.0 79 18 138/74 97 Room Air 11/19 1600 Room Air Intake & Output 11/20 1600 11/20 0800 11/20 0000 Intake Total 100 Output Total Balance 100 Intake, Oral 100 Physical Exam General Appearance: Alert, Oriented X3, Cooperative, No Acute Distress Skin: No Significant Lesion HEENT: Atraumatic, Mucous Membr. moist/pink Neck: Supple Lymphatic: Cervical nl Cardiovascular: Normal S1, Normal S2 Lungs: Better air entry bilaterally, wheezing appreciated in all lung guillory Abdomen: Normal Bowel Sounds, Soft, No Tenderness Neurological: Normal Gait, Normal Speech, Strength at 5/5 X4 Ext Extremities: 1+ edema of bilateral lower extremities Vascular: Pulses Symmetrical Current Medications: Current Medications Sig/Jose Start time Last Medication Dose Route Stop Time Status Admin Acetaminophen/ See Dose DAILY 11/16 1000 DCD 11/20 Hydrocodone Bitart Insts (1) PO 0930 Albuterol Sulfate 3 ML TID 11/18 1600 DCD 11/20 INH 1214 Albuterol Sulfate 2 PUF Q4P PRN 11/18 1400 DCD INH Allopurinol 150 MG DAILY 11/16 1000 DCD 11/20 PO 0913 Amlodipine Besylate 5 MG DAILY 11/19 1546 DCD 11/20 PO 0911 Amoxicillin/ 500 MG Q12 11/19 1000 DCD 11/20 Clavulanate Potassium PO 0910 Ascorbic Acid 500 MG BID 11/15 2200 DCD 11/20 PO 0913 Aspirin Buffered 81 MG DAILY 11/16 1000 DCD 11/20 PO 0910 Bisacodyl 10 MG DAILY PRN 11/18 1145 DCD 11/19 AK 0614 Cholecalciferol 1,000 IU DAILY 11/16 1000 DCD 11/20 PO 0913 Cyanocobalamin 250 MCG DAILY 11/16 1000 DCD 11/20 PO 0913 Docusate Sodium 100 MG DAILY NEEDED PRN 11/19 0745 DCD 11/19 PO 0933 Fenofibrate 145 MG DAILY 11/16 1000 DCD 11/20 PO 0912 Guaifenesin 600 MG Q12 11/15 2200 DCD 11/20 PO 0910 Heparin Sodium 5,000 UNIT Q8 11/15 2199 DCD 11/20 (Porcine) SC 0554 Insulin Aspart 0 TIDAC 11/15 1700 DCD 11/20 SC 1236 Insulin Detemir 15 UNITS BID 11/15 2199 DCD 11/20 SC 0930 Montelukast Sodium 10 MG AT BEDTIME 11/15 220 DCD 11/19 PO 2148 Omeprazole 40 MG DAILY AC 11/16 0700 DCD 11/20 PO 0554 Polyethylene Glycol 17 GM DAILY 11/18 1326 DCD 11/20 PO 0910 Prednisone 40 MG DAILY 11/19 1000 DCD 11/20 PO 0911 Pregabalin 75 MG QPM 11/19 2200 DCD 11/19 PO 2148 Ramelteon 8 MG AT BEDTIME 11/15 220 DCD 11/19 PO 2148 Senna/Docusate Sodium 1 TAB BID PRN 11/17 1015 DCD 11/17 PO 1208 Sodium Polystyrene 60 ML ONCE ONE 11/20 0930 DC 11/20 Sulfonate PO 11/20 0931 1103 Tiotropium [place] 1 PUF DAILY 11/18 1253 DCD 11/20 INH 0930 Dose Instructions: (1)Acetaminophen/Hydrocodone Bitart: 1-2 TAB Last 24 Hrs of Lab/Nirmal Results Last 24 Hrs of Labs/Mics: Laboratory Tests 11/20/16 0710: Anion Gap 11, Estimated GFR 40 L, BUN/Creatinine Ratio 37.7 H Orders Radiology Findings: EXAMINATION: XR CHEST CLINICAL INFORMATION: COPD exacerbation/pneumonia. COMPARISON: Chest x-ray 11/15/2015 TECHNIQUE: PA and lateral views of the chest were obtained. FINDINGS: Symmetric lung inflation. No focal consolidation, pleural effusion, or pneumothorax. Linear atelectasis at the lung bases. Cardiac silhouette size is normal. Atherosclerotic calcification within the aortic arch. No acute osseous findings. IMPRESSION: Bibasilar atelectasis. No focal pneumonia. Assessment/Plan Assessment: Ms. Cho is a pleasant 76 year old female with PMH COPD not on home O2 followed by Dr. Ramesh, mild interstitial pulmonary fibrosis, asthma, osteoarthritis on lyrica, HTN, HLD, GERD, diabetes, chronic low back pain and kidney stones who presents with a 10 day history of cough with shortness of breath. Patient had previously seen Dr. Ramesh on Friday and was prescribed mucinex without much relief. Since this time, she has become more lethargic and her cough has been productive of yellow sputum. Associated symptoms include chills, decreased oral intake and constipation. In the ED: Vital signs show T 98.2, HR 99, BP 189/74, RR 18 and O2 saturation of 94% on RA. Labs show leukocytosis to 13.1 without bandemia, anemia to 11.2/33.9 and renal dysfunction to 34/1.3 (baseline 1.2). CXR showed lower lobe pneumonia most likely left lower lobe. Patient was admitted to the general medicine floor and the following is the management: 1. COPD exacerbation * Patient saturating well on room air, though diffuse wheezing appreciated, provide supplemental O2 as needed to keep O2 sat >92%, currently on room air * Continue 40 mg PO prednisone daily, will taper patient starting at 30 mg PO daily from tomorrow and decrease by 10 mg every other day * Continue home inhalers, including montelukast and MDI * TRC nebs * Mucinex 600 mg Q8h * Spiriva started, nebs changed to albuterol, symbicort discontinued 2. Community acquired PNA * Initial CXR suggestive of left lower lobe pneumonia * Follow up CXR showed no focal PNA * IV ceftriaxone discontinued, patient already switched to PO augmentin 500 mg PO Q12 (today is last day of antibiotic therapy) * Azithro discontinued after 3 doses * As above, TRC nebs, provide supplemental O2 as needed * Monitor for fever, chills * Lactic acid within normal limits, no evidence of sepsis * Patient pancultured, follow up LRC, blood cultures - mixed manolo after 2 days * Urine for legionella and strep negative 3. CKD 3-4 * Patient had noted acute increase in BUN/cre on 11/18/16, currently improved to 49/1.3. * To 4.9his acute kidney dysfunction is associated with mild hyperkalemia to 5.3 (patient given kayexalate today, will have her recheck BEP tomorrow as an outpatient and lab results to be sent to PCP and Dr. Ramesh) * Lasix continues to be on hold, we are currently holding losartan as well in setting of OMAIRA on CKD. Patient instead stared on amlodipine 5 mg PO daily and she will be discharged on this medication. * Bilateral renal US ordered to r/o obstruction, shows only mild renal cortical atrophy, no evidence of stones/obstruction * Continue allopurinol for renal stones * Patient given discharge instructions to follow up with pelletizer tender Dr. Pepper within 1 week 4. DM type 2 * Accuchecks TIDACHS * NSS * Levemir 15 U SC BID 5. ? CHF, HTN, HLD * Losartan 50 mg PO daily STOPPED * Lasix 40 mg PO daily STOPPED * Tricor 145 mg PO daily * Zetia 10 mg PO daily has been discontinued as patient denies taking it at home * ASA 81 mg PO daily 6. Sleep * Continue rozerem as patient reports this is helping her greatly, she is requesting this medication after discharge FULL CODE DVTP: Heparin SC CC3 diet Problem List: 1. Arthritis 2. Benign essential hypertension 3. Diabetes mellitus type 2 4. GERD (gastroesophageal reflux disease) 5. COPD with acute exacerbation 6. Pneumonia Pain Ratin Pain Location: n/a Pain Goal: Remain pain free Pain Plan: Mild pain pathway Tomorrow's Labs & Rationales: None, discharge today.
[2016-11-20 08:27] VITALS: BP 170/80
[2016-11-20 09:11] VITALS: BP 170/80
--- NOTE | 2016-11-20 13:42 | PN- Pulmonary ---
Subjective HPI/Critical Care Issues: DId well s/p bm on the way home Objective Current Medications: Current Medications Sig/Jose Start time Last Medication Dose Route Stop Time Status Admin Acetaminophen/ See Dose DAILY 11/16 1000 DCD 11/20 Hydrocodone Bitart Insts (1) PO 0930 Albuterol Sulfate 3 ML TID 11/18 1600 DCD 11/20 INH 1214 Albuterol Sulfate 2 PUF Q4P PRN 11/18 1400 DCD INH Allopurinol 150 MG DAILY 11/16 1000 DCD 11/20 PO 0913 Amlodipine Besylate 5 MG DAILY 11/19 1546 DCD 11/20 PO 0911 Amoxicillin/ 500 MG Q12 11/19 1000 DCD 11/20 Clavulanate Potassium PO 0910 Ascorbic Acid 500 MG BID 11/15 2199 DCD 11/20 PO 0913 Aspirin Buffered 81 MG DAILY 11/16 1000 DCD 11/20 PO 0910 Bisacodyl 10 MG DAILY PRN 11/18 1145 DCD 11/19 VA 0614 Cholecalciferol 1,000 IU DAILY 11/16 1000 DCD 11/20 PO 0913 Cyanocobalamin 250 MCG DAILY 11/16 1000 DCD 11/20 PO 0913 Docusate Sodium 100 MG DAILY NEEDED PRN 11/19 0745 DCD 11/19 PO 0933 Fenofibrate 145 MG DAILY 11/16 1000 DCD 11/20 PO 0912 Guaifenesin 600 MG Q12 11/15 2199 DCD 11/20 PO 0910 Heparin Sodium 5,000 UNIT Q8 11/15 2199 DCD 11/20 (Porcine) SC 0554 Insulin Aspart 0 TIDAC 11/15 1700 DCD 11/20 SC 1236 Insulin Detemir 15 UNITS BID 11/15 2199 DCD 11/20 SC 0930 Montelukast Sodium 10 MG AT BEDTIME 11/15 2199 DCD 11/19 PO 2148 Omeprazole 40 MG DAILY AC 11/16 0700 DCD 11/20 PO 0554 Polyethylene Glycol 17 GM DAILY 11/18 1326 DCD 11/20 PO 0910 Prednisone 40 MG DAILY 11/19 1000 DCD 11/20 PO 0911 Pregabalin 75 MG QPM 11/190 DCD 11/19 PO 2148 Ramelteon 8 MG AT BEDTIME 11/15 2199 DCD 11/19 PO 2148 Senna/Docusate Sodium 1 TAB BID PRN 11/17 1015 DCD 11/17 PO 1208 Sodium Polystyrene 60 ML ONCE ONE 11/20 0930 DC 11/20 Sulfonate PO 11/20 0931 1103 Tiotropium [place] 1 PUF DAILY 11/18 1253 DCD 11/20 INH 0930 Dose Instructions: (1)Acetaminophen/Hydrocodone Bitart: 1-2 TAB Vital Signs & I&O Last 24 Hrs of Vitals and I&O: Vital Signs Date Time Temp Pulse Resp B/P Pulse O2 O2 Flow FiO2 Ox Delivery Rate 11/20 0911 79 170/80 11/20 0830 94 Room Air Room Air 11/20 0827 98.2 79 20 170/80 95 Room Air 11/20 0003 97.2 69 20 130/80 95 Room Air 11/20 0000 Room Air 11/19 1945 94 Room Air 11/19 1851 73 120/75 11/19 1606 98.0 79 18 138/74 97 Room Air 11/19 1600 Room Air Intake & Output 11/20 1600 11/20 0800 11/20 0000 Intake Total 100 Output Total Balance 100 Intake, Oral 100 Impression/Plan Impression/Plan Impression/Plan: Physical Exam General Appearance Alert, Oriented X3, Cooperative, No Acute Distress Skin No Rashes, No Significant Lesion HEENT Atraumatic, PERRLA, Mucous Membr. moist/pink Neck Supple, No JVD Lymphatic Cervical nl Cardiovascular Regular Rate, Normal S1, Normal S2 Lungs Diffuse wheezing in all lung guillory, rhonchi appreciated in left lower lobe. Abdomen Normal Bowel Sounds, Soft, No Tenderness, No Hepatospenomegaly, No Masses Neurological Normal Speech, Strength at 5/5 X4 Ext, Normal Tone Extremities No Clubbing, No Cyanosis, 1+ pitting edema of bilateral lower extremities. Vascular Pulses Symmetrical SIGNIFICANT DATA Previous echocardiogram that showed normal ejection fraction unable to estimate pulmonary artery pressure Chest x-ray showed left lower lobe infiltrate Previous chest x-ray done on showed no dense consolidation bronchial wall thickening consistent with small airway disease Previous CT scan done in 2014 had shown a 2 mm left upper lobe lung nodule with groundglass opacity in the lingula Creatinine is elevated at 1.7 potassium is slightly elevated at 5.3 Blood work upon admission showed left shift with the hemoglobin of 10.4 platelets of 246 previous CABG had not revealed any hypercarbia Sputum culture is pending but gram-positive cocci few in pairs noted upon admission Strep pneumo antigen negative IMPRESSION This is a lady with 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 with moderate COPD with mild ILD which has been stable for years with previous history of GERD and hiatal hernia now comes in with * Left lower lobe infiltrate consistant with pna vs atx now better stable * Improving Acute exacerbation of chronic obstructive pulmonary disease with an asthmatic component * Mild interstitial lung disease which is stable * Previous hyperglycemia due to steroids * Mild mitral stenosis * CKD due to HTN and DM * Morbid obesisty * COnstipation REC Po abx for seven days Prednisone to 40 mg and wean in 8 days COnt nebs tid atc and prn Change nebs to albuterol Start spiriva Start symbicort or advair
== END 2016-11-20 13:25 | DRG 190 ==
LOC: ENRESERVDT → ENRESERVTM → ERH 10:59 → ERHI 14:55 → ENPENDDIS 14:55 → 2NB 14:55
PROVIDERS: Internal Medicine; Physician Assistant; Student in an Organized Health Care Education/Training Program; ADMIT Internal Medicine
DX: J44.0 Chronic obstructive pulmonary disease with (acute) lower respiratory infection (principal); J18.9 Pneumonia, unspecified organism; N17.9 Acute kidney failure, unspecified; I13.0 Hypertensive heart and chronic kidney disease with heart failure and stage 1 through stage 4 chronic kidney disease, or unspecified chronic kidney disease; N18.3 Chronic kidney disease, stage 3 (moderate); I50.9 Heart failure, unspecified; E11.9 Type 2 diabetes mellitus without complications; J44.1 Chronic obstructive pulmonary disease with (acute) exacerbation; Z87.891 Personal history of nicotine dependence; E66.9 Obesity, unspecified; Z68.39 Body mass index [BMI] 39.0-39.9, adult; M19.90 Unspecified osteoarthritis, unspecified site; E78.5 Hyperlipidemia, unspecified; E66.01 Morbid (severe) obesity due to excess calories; K21.9 Gastro-esophageal reflux disease without esophagitis; K44.9 Diaphragmatic hernia without obstruction or gangrene
CPT/HCPCS: 2NSBP; 36415; 76775; 82436; 87040; 87070; 87449; 87450; 87804; 87804-59; 93005; 93010; 96365; 96375; J0456; J0696; J1644; J2920; J3490; J7060

== ENCOUNTER 2018-04-27 04:57 | Inpatient (IN) | payer OTHER ==
[~2018-04-27] VITALS: Ht 152.4 cm; Wt 110.2 kg
[~2018-04-27 04:57] MED LIST changes: +ADVAIR 250-501 EACH INH; -ADVAIR DISKUS 21 DSK INH; +ALLOPURINOL300 M1 PO; +AMLODIPINE BESYL5 M1 PO; -ASPIR 8181 MG PO; +ASPIRIN EC81 M1 PO; +B-12 DOTS500 MCG PO; +CLOTRIMAZOLE15 GM TOP; +FENOFIBRATE160 M1 PO; -FENOFIBRATE160 MG PO; +HUMALOG KW100 UNIT/1 SC; -HUMALOG100 U/ML SC; +LANTUS SOL100 UNIT/1 SC; -LANTUS SOLOS100 U/ML SC; +LYRICA75 M1 PO; +MACRODANTIN50 M1 PO; +OMEPRAZOLE40 M1 PO; -OMEPRAZOLE40 MG PO; +PERCOCET 5-3251 EACH PO; +PREDNISONE10 M2 PR; -PROAIR HFA8.5 GM; +PROAIR HFA8.5 GM INH; +PYRIDIUM200 M1 PO; +ROZEREM8 M1 PO; -SINGULAIR 5 MG T5 MG PO; +SINGULAIR5 M1 PO; -SPIRIVA 18 MCG18 MCG INH; +SPIRIVA18 MCG INH; +VICTOZA 3-0.6 MG/0.1 SC; -VICTOZA6 MG/ML SC; -VITAMIN B12500 MCG PO; +VITAMIN C500 M6 PO; -VITAMIN D1000 IU PO; +VITAMIN D31000 UNI2 PO; +ZETIA10 M1 PO
--- NOTE | 2018-04-27 10:26 | Operative Report ---
Operative/Inv Procedure Report Surgery Date: 04/27/18 Name of Procedure: Right total knee arthroplasty Pre-Operative Diagnosis: #1 right knee primary osteoarthritis #2 valgus deformity right knee Post-Operative Diagnosis: Same Estimated Blood Loss: less than 50ml Surgeon/Optical Effects Camera Operator: Alejandro BANDA,Sebastien Jose Anesthesia: block Implants: [place] triathlon total knee system-size 3 femur, size 2 tibia, 29 patella, 9 mm cruciate retaining polyethylene Drains: None Specimens: Femoral, tibial, patellar bone, meniscal tissues Microbiology: Urine Tourniquet: 62 minutes Complications: None Condition: Stable Operative Indication: Patient is a 77-year-old woman with worsening right knee problems. She was diagnosed with osteoarthritis. She developed a valgus deformity and symptoms continue to a worsen over. At time. She was treated conservatively for a long period of time but had increasing symptoms that interfere with normal activities of daily living. She wished to proceed with total knee arthroplasty after risks , benefits and expectations were discussed which included but were not limited to persistent knee pain, need for subsequent surgery, infection, DVT, injury to blood vessel or nerve, anesthesia risks Operative/Procedure Note Note: Patient was brought to the operating room and transferred to the operating table. Once under appropriate anesthesia the right lower extremity was prepped and draped in standard fashion. Preoperative IV antibiotics were given prophylactically. A standard anterior incision was made for anticipated medial parapatellar approach to the knee after the leg was elevated exsanguinated and tourniquet was inflated to 300 millimeters of pressure. Early on it was increased to 350 since the 300 was not working properly. The incision was taken down sharply to the underlying retinaculum. A medial retinacular approach was used with a minimal extension into the quadriceps tendon. Remnants of the degenerative medial and lateral meniscal tissues were excised. The knee was flexed and the patella was subluxed. Severe end-stage degenerative changes in the lateral compartment. Moderate degenerative changes of the patellofemoral compartment and mild generative changes in the medial compartment were noted. Osteophytes were excised. A drill was used to enter the intramedullary canal. Cutting block for the distal femur was pinned in position for a 5 valgus cut and 8 mm thickness cut. This was increased to 10 after the intraoperative evaluation was done. The femur was incised was size 3. Size 3 cutting block was pinned in place and the cuts were made while protecting the soft tissues. I was satisfied with the preparation of the femur. I then turned my attention to the tibia. The external tibial alignment guide was used and the cutting block was pinned in position for a neutral cut from medial to lateral and reproducing patient's posterior slow-paced on intraoperative findings and preoperative templating. Again soft tissues were protected medially laterally and posteriorly. PCL was slightly recessed for balancing purposes. Remnants of the horns posterior were excised. Cut was made. The tibia was incised was size 2. I then did a trial reduction with a size 2 tibia size 3 femur and a 9 mm polyethylene. The knee went out to full extension. Excellent balancing mediolaterally and throughout range of motion including full extension and mid flexion as well as full flexion to gravity. I then turned my attention back to the patella. The patella was measured and the appropriate thickness was removed and then replaced with a 29 mm patella. 3 lug holes were drilled. A small lateral suprapatellar bipartite piece was shelled out it was unstable and was not significant for resurfacing. Due to patient's overall valgus deformity was apparent the patient would likely need to have a lateral release but this would be determined later on the case after the tourniquet was deflated. I was satisfied with positioning. I drilled my 2 lug holes for the femur and marked my tibial rotation. I then removed all his rotation from the knee and then finished preparation of the tibia with the appropriate tibial punch. The medial tibial bone was fairly brittle and extra care was taken during the tibial port punch portion of the case to prevent any issues with the bone. Even the pinning of the cutting block To be altered because of the frail nature of the medial tibial bone. I then removed all his rotation from the knee and copious irrigation the knee followed. The anterior chamfer bone of the femur was used to plug the distal femoral intramedullary hole to prevent and minimize postoperative hemarthrosis and swelling of the knee. Cement was being mixed on the back table area once the cement was ready was applied to the dry clean bony surfaces of the tibia. The size 2 tibia was impacted in place appropriate rotation as previously determined. Excess cement was removed with curettes. Cement was applied to the dry clean bony surfaces of the femur. The size 3 femoral component was impacted in place and excess cement was removed with curettes. The 9 mm trial was impacted in place and the knee was taken out to full extension. Cement was applied to the dry clean bony surfaces of the patella and excess cement was removed with a knife after the 29 mm patella was impacted in place. During the waiting process for the cement to harden I did appear articular pericapsular injection of ropivacaine with epinephrine and Toradol for postoperative pain and inflammation management. Once the cement was ready it knee through range of motion. Small pieces of excess cement removed. I was satisfied with the 9 mm insert. The trial insert was removed. Copious irrigation of the tibial tray followed and then I impacted the definitive size 9 mm cruciate retaining polyethylene in place. The locking mechanism was confirmed. After copious irrigation the tourniquet was deflated at 62 minutes. I then obtained hemostasis. I determined that there would be the need for a lateral release. This was done in standard fashion and extra articular fashion trying to preserve the synovium. Tracking was excellent after the lateral release was completed. Copious irrigation followed and copious irrigation followed every level of closure. The fascia retinaculum was closed with interrupted #1 Vicryl sutures. Subcutaneous tissues closed in 2 layers with 2-0 Vicryl and skin was closed with a running 3-0 Vicryl suture with the knee in flexion. Appropriate dressings were applied and patient was awakened and taken to recovery room in good condition. No intraoperative complications. Blood loss was less than 50 mL Discharge Disposition: PACU
--- NOTE | 2018-04-27 10:46 | Admission Core Measures ---
Acute Coronary Syndrome (CM) ACS Core Measures Acute Coronary Syndrome Diagnosis No Congestive Heart Failure (NEW) CHF Core Measures Congestive Heart Failure Diagnosis No Cerebrovascular Accident CVA Core Measures CVA/TIA Diagnosis No Venous Thromboembolism VTE Core Azra (View Protocol) VTE Risk Factors Surgery No Mechanical VTE Prophylaxis d/t N/A MechProphylax Ordered No VTE Pharm Prophylaxis d/t NA PharmProphylax ordered Problem List As ranked by this Provider includes Assessment & Plan 1. Unilateral primary osteoarthritis, right knee HOME MEDS Home Med List Albuterol Sulfate (Proair Hfa) 90 MCG HFA.AER.AD 2 PUF INH Q4-6 PRN PRN SHORTNESS OF BREATH (Reported) Allopurinol 300 MG TABLET 1 TAB PO DAILY kidney stones (Reported) Amlodipine Besylate 5 MG TABLET 1 TAB PO DAILY BLOOD PRESSURE Aspirin (Ecotrin*) 81 MG TABLET.DR 1 TAB PO DAILY HEART HEALTH (Reported) Cholecalciferol (Vitamin D3) 1,000 UNIT TABLET 1 TAB PO DAILY VITAMIN SUPPORT (Reported) Clotrimazole 1 % CREAM..G. 1 CASE TOP QAMPM PRN rash/itching Cyanocobalamin (Vitamin B-12) (B-12 Dots) 500 MCG TABLET 1 TAB PO DAILY VITAMIN SUPPORT (Reported) Fenofibrate 160 MG TABLET 1 TAB PO DAILY CHOLESTEROL (Reported) Fluticasone/Salmeterol (Advair 250-50 Diskus) 250 MCG-50 MCG/DOSE BLST.W.DEV 1 PUF INH DAILY ASTHMA (Reported) Insulin Glargine,Hum.rec.anlog (Lantus Solostar) 100 UNIT/ML (3 ML) INSULN.PEN 26 UNIT SC QPM DIABETES (Reported) Insulin Lispro (Humalog Kwikpen U-100) (Unknown Strength) INSULN.PEN (Unknown Dose) SC TIDAC/HS DIABETES (Reported) Liraglutide (Victoza 3-Richard) 0.6 MG/0.1 ML (18 MG/3 ML) PEN.INJCTR 1.8 MG SC DAILY DIABETES (Reported) Montelukast Sodium (Singulair) 5 MG TAB.CHEW 2 TAB PO DAILY ASTHMA (Reported) Omeprazole 40 MG CAPSULE.DR 1 CAP PO DAILY GERD (Reported) Pregabalin (Lyrica) 75 MG CAPSULE 1 CAP PO DAILY PAIN (Reported) Tiotropium [place] (Spiriva) 18 MCG CAP.W.DEV 1 CAP INH DAILY COPD (Reported)
--- NOTE | 2018-04-27 11:02 | Patient Discharge Instructions ---
Discharge Instructions General Discharge Information You were seen/treated for: Right knee pain related to unilateral primary osteoarthritis You had these procedures: Right total knee replacement Watch for these problems: Increasing pain despite the use of pain medication Increasing redness, warmth or swelling Drainage of any type from incision Inability to bear weight on operative leg Persistent nausea and vomiting Fever greater than 101.5 degrees Do not soak the wound: Yes No bath, but you may shower: Yes Other wound care: Please keep wound clean and dry. No ointments or lotions of any type on or near incision at any time. No exceptions. Your dressing will be changed by your nurse on the second day after your surgery. Daily dry dressing changes are recommended each day thereafter. Do not soak your wound in a bath or pool at any time until otherwise indicated by your surgeon. You may shower, please dry wound immediately after shower with a clean towel. Special Instructions: Coumadin: You are taking this medication to help prevent the development of blood clots. Another name for this medication is warfarin. The daily dose is subject to change. It is based on lab work called INR which will be tested at a minimum of two times per week. The dose is adjusted accordingly to keep your INR between 2-3. Dr. Allen will instruct you as to how much Coumadin you are to be taking. Please be sure to communicate with him or his office regarding your doses prior to taking. You will also need a blood test called a Basic metabolic panal done in 1 wk to follow-up on your creatinine and potassium level. You will need to follow-up with your urologist, Dr Hyman in 2 weeks. You need to follow-up with a medical educator, Dr. Hui in 2 months. Diet Continue normal diet: Yes Recommended Diet: Regular no added salt Activity Full Activity/No Limits: No Activity Self Limited: Yes Acute Coronary Syndrome Inclusion Criteria At DC or during hospital stay patient has or had the following: ACS DIAGNOSIS No Discharge Core Measures Meds if any: Prescribed or Continued at Discharge Meds if any: NOT Prescribed or Continued at Discharge Congestive Heart Failure Inclusion Criteria At DC or during hospital stay patient has or had the following: CHF DIAGNOSIS No Discharge Core Measures Meds if any: Prescribed or Continued at Discharge Meds if any: NOT Prescribed or Continued at Discharge Cerebrovascular accident Inclusion Criteria At DC or during hospital stay patient has or had the following: CVA/TIA Diagnosis No Discharge Core Measures Meds if any: Prescribed or Continued at Discharge Meds if any: NOT Prescribed or Continued at Discharge Venous thromboembolism Inclusion Criteria VTE Diagnosis No VTE Type NONE VTE Confirmed by (Test) NONE Discharge Core Measures - Per Current guidelines, there needs to be overlap - treatment for the first 5 days of Warfarin therapy. - If discharged on Warfarin prior to 5 days of - overlap therapy, the patient will need to be - assessed for post discharge needs including - *Post discharge parental anticoagulation - *Warfarin and/or parental anticoagulation education - *Follow up date to check INR post discharge At least 5 days overlap therapy as Inpatient No Meds if any: Prescribed or Continued at Discharge Note: Overlap Therapy is Warfarin and Anticoagulant Meds if any: NOT Prescribed or Continued at Discharge
--- NOTE | 2018-04-27 11:06 | Surgical Discharge Summary ---
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 SISTER (emphysema). Relation not specified for: FH: brain cancer FH: colon cancer FH: diabetes mellitus FH: ischemic heart disease Psychosocial History Who Do You Live With? Spouse Services at Home: None What is Your Primary Language? Yi Review of Systems: See H&P Hospital Course Course Attending Physician: Damon Allen MD Primary Care Physician: Margy BANDA,[place] Hospital Course: Patient was admitted to the hospital for an elective total joint replacement. The procedure was tolerated well and patient was transferred to a general surgical floor. Post-operatively, the patient was found to have an elevated creatinine and potassium level likely due to an acute kidney injury. Her lasix and Losartan were held, she was placed on a low patassium diet and IV fluids were given. Her creatinine returned to baseline. Diet was advanced and tolerated. The patient was evaluated and treated by physical therapy. At the time of hospital discharge, the vital signs were stable, neurovascular status was intact, and pain was controlled with the use of oral pain medications. On discharge, all home medications can be resumed. Vicodin is prescribed for pain medication. Coumadin is prescribed for DVT prophylaxis. On discharge to rehab her INR is currently 2.31. She should have repeat INR blood test done every other day to titrate coumadin dose to keep her INR therapeutic between 2- 3. Complications: Post-operatively, the patient was found to have an elevated creatinine and potassium level likely due to an acute kidney injury. Her lasix and Losartan were held, she was placed on a low patassium diet and IV fluids were given. Her creatinine and potassium returned to baseline prior to discharge. Allergies: Coded Allergies: oxycodone (From PERCOCET) (?PERCOCET - NAUSEA 01/01/16) codeine (GI UPSET 01/01/16) Disposition Summary Disposition Principal Diagnosis: Unilateral primary osteoarthritis right knee Additional Diagnosis: None Discharge Disposition: SNF Discharge Instructions General Discharge Information Code Status: Full Code Patient's Diet: Regular, advance as tolerated Patient's Activity: WBAT Follow-Up Instructions/Appts: Follow up with Dr. Allen in 2 weeks from date of surgery, please call office to arrange/confirm this appointment. Medications at Discharge Discharge Medications: Continue taking these medications: Omeprazole (Omeprazole) 40 MG CAPSULE.DR 1 Capsule ORAL DAILY Liraglutide (Victoza 3-Richard) 0.6 MG/0.1 ML (18 MG/3 ML) PEN.INJCTR 1.8 Milligram Inject into fatty tissue DAILY Tiotropium [place] (Spiriva) 18 MCG CAP.W.DEV 1 Capsule Inhale through mouth DAILY Montelukast Sodium (Singulair) 5 MG TAB.CHEW 2 Tablet ORAL DAILY Fenofibrate (Fenofibrate) 160 MG TABLET 1 Tablet ORAL DAILY Aspirin (Ecotrin*) 81 MG TABLET.DR 1 Tablet ORAL DAILY Insulin Lispro (Humalog Kwikpen U-100) (Unknown Strength) INSULN.PEN Unknown Dose Inject into fatty tissue BEFORE MEALS AND AT BEDTIME Albuterol Sulfate (Proair Hfa) 90 MCG HFA.AER.AD 2 Puff Inhale through mouth EVERY 4-6 HOURS NEEDED as needed for SHORTNESS OF BREATH Comments: LAST GIVEN 11/10/16 @ 1214 Cholecalciferol (Vitamin D3) 1,000 UNIT TABLET 1 Tablet ORAL DAILY Cyanocobalamin (Vitamin B-12) (B-12 Dots) 500 MCG TABLET 1 Tablet ORAL DAILY Pregabalin (Lyrica) 75 MG CAPSULE 1 Capsule ORAL DAILY Allopurinol (Allopurinol) 300 MG TABLET 1 Tablet ORAL DAILY Amlodipine Besylate (Amlodipine Besylate) 5 MG TABLET 1 Tablet ORAL DAILY Qty = 30 Comments: LAST GIVEN 11/20/16 @ 0910 Clotrimazole (Clotrimazole) 1 % CREAM..G. 1 Application On the skin Every Morning-Night as needed for rash/itching Qty = 15 Instructions: apply to affected area(s) Fluticasone/Salmeterol (Advair 250-50 Diskus) 250 MCG-50 MCG/DOSE BLST.W.DEV 1 Puff Inhale through mouth DAILY Insulin Glargine,Hum.rec.anlog (Lantus Solostar) 100 UNIT/ML (3 ML) INSULN.PEN 26 Unit Inject into fatty tissue Every night Start taking the following new medications: Hydrocodone/Acetaminophen (Vicodin 5-300 MG Tablet) 5 MG-300 MG TABLET 1-2 Tablet ORAL EVERY 4-6 HOURS as needed for post-op knee pain Qty = 36 No Refills Warfarin Sodium (Coumadin) 2.5 MG TABLET 1 Tablet ORAL DAILY Qty = 30 No Refills Furosemide (Lasix) 20 MG TABLET 1 Tablet ORAL DAILY Qty = 30 No Refills Copies To: Margy BANDA,Edward
[2018-04-27 12:00] VITALS: BP 136/72
--- NOTE | 2018-04-27 13:52 | PN- Orthopedic ---
Subjective Subjective: Awake, alert post op Complaining of acid reflux with lunch - feels better now after tums Pain is well controlled at this time has not ambulated yet - still has some numbness Objective Vital Signs and I&Os Vital Signs Date Time Temp Pulse Resp B/P B/P Pulse O2 O2 Flow FiO2 Mean Ox Delivery Rate 04/27 1200 98.2 85 20 136/72 93 Room Air Intake & Output 04/27 0800 04/27 0000 04/26 1600 04/26 0800 04/26 0000 Intake Total Output Total Balance Patient 221 lb Weight Weight Bed scale Measurement Method Physical Exam: VSS, afebrile august output good - clear urine General: alert and oriented times three Ext: warm, no edema, no calf tenderness, normosensate R foot with decreased 3/5 dorsiflexion strength at this time, 5/5 plantar flexion Wd: dressing clean and dry, ice pack in place Assessment/Plan Assessment/Plan 77yo female s/p R TKR PT - wbat coumadin for dvt ppx - 5 mg ordered ALPS pain management ada diet, insulin sliding scale ordered Core Measures Venous Thromboembolism VTE Risk Factors Surgery No Mechanical VTE Prophylaxis d/t N/A MechProphylax Ordered No VTE Pharm Prophylaxis d/t NA PharmProphylax ordered
[2018-04-27 19:16] VITALS: BP 140/80
[2018-04-27 21:53] VITALS: BP 140/66
[2018-04-28 02:00] VITALS: BP 133/66
[2018-04-28 06:00] VITALS: BP 140/68
--- NOTE | 2018-04-28 07:25 | PN- Orthopedic ---
See Addendum Subjective Subjective: POD#1 S/P RIGHT TKA COMFORTABLE NO MAJOR ISSUES OVERNIGHT DENIES CP, SOB, NO N+V WITH DIET INDIGESTION WITH MEEALS Objective Vital Signs and I&Os Vital Signs Date Time Temp Pulse Resp B/P B/P Pulse O2 O2 Flow FiO2 Mean Ox Delivery Rate 07/03 0600 98.0 74 18 140/68 96 Room Air / 0200 98.2 72 18 133/66 95 Room Air / 2153 98.1 75 18 140/66 94 07/02 1916 98.7 87 18 140/80 94 07/02 1200 98.2 85 20 136/72 93 Room Air Intake & Output 07/ 0800 07/ 0000 / 1600 / 0800 / 0000 / 1600 Intake Total 1330 580 Output Total 455 467 5422 Balance -400 955 -420 Intake, IV 850 300 Intake, Oral 480 280 Number 0 Bowel Movements Output, Urine 985 491 8106 Patient 231 lb 221 lb Weight Weight Bed scale Bed scale Measurement Method Physical Exam: CP: RRR LUNGS: CLEAR ABD: SOFT, +BS EXT: DRSG DRY DISTAL CMS INTACT Assessment/Plan Assessment/Plan STABLE S/P RIGHT TKA PLAN TITRATE COUMDIN FOR INR 2-3/ALPS OOB WITH PT TODAY WBAT RIGHT LE ADVANCE DIET WANTS REHAB DUE TO HOME SITUATION Core Measures Venous Thromboembolism VTE Risk Factors Surgery No Mechanical VTE Prophylaxis d/t N/A MechProphylax Ordered No VTE Pharm Prophylaxis d/t NA PharmProphylax ordered
[2018-04-28 09:34] LABS: ABSOLUTE BASOPHIL COUNT 0 /CUMM (0.0-0.2); ABSOLUTE EOSINOPHIL COUNT 0 /CUMM (0.0-0.7); ABSOLUTE GRANULOCYTE CT 11.3 /CUMM (1.4-6.5); ABSOLUTE LYMPH COUNT 0.7 /CUMM (1.2-3.4); ABSOLUTE MONOCYTE COUNT 0.7 /CUMM (0.10-0.60); BASOPHIL % 0 % (0.0-2.0); EOSINOPHIL % 0 % (0-5); GRANULOCYTE % 89.1 % (42.2-75.2); HEMATOCRIT 30.4 % (37-47); MEAN CORPUSCULAR HGB 30.1 PG (27.0-31.0); MEAN CORPUSCULAR HGB CONC 33.7 G/DL (33.0-37.0); MEAN CORPUSCULAR VOLUME 89.4 FL (81.0-99.0); MEAN PLATELET VOLUME 8.9 FL (7.4-10.4); PLATELET COUNT 237 /CUMM (130-400); RBC DISTRIBUTION WIDTH 15.5 % (11.5-14.5)
[2018-04-28 09:43] LABS: PT 12.6 SEC (9.4-12.5)
[2018-04-28 10:25] LABS: WHITE BLOOD CELL COUNT 12.6 /CUMM (4.8-10.8)
[2018-04-28 14:19] VITALS: BP 120/80
[2018-04-28 22:50] VITALS: BP 120/60
[2018-04-29 06:30] VITALS: BP 136/62
[2018-04-29 08:23] LABS: PT 15.7 SEC (9.4-12.5)
[2018-04-29 08:24] LABS: ABSOLUTE BASOPHIL COUNT 0 /CUMM (0.0-0.2); ABSOLUTE EOSINOPHIL COUNT 0.2 /CUMM (0.0-0.7); ABSOLUTE GRANULOCYTE CT 5.6 /CUMM (1.4-6.5); ABSOLUTE LYMPH COUNT 1.1 /CUMM (1.2-3.4); ABSOLUTE MONOCYTE COUNT 0.7 /CUMM (0.10-0.60); BASOPHIL % 0.6 % (0.0-2.0); EOSINOPHIL % 2.6 % (0-5); GRANULOCYTE % 73.2 % (42.2-75.2); HEMATOCRIT 27.7 % (37-47); MEAN CORPUSCULAR HGB 29.7 PG (27.0-31.0); MEAN CORPUSCULAR HGB CONC 32.9 G/DL (33.0-37.0); MEAN CORPUSCULAR VOLUME 90.1 FL (81.0-99.0); MEAN PLATELET VOLUME 8.6 FL (7.4-10.4); PLATELET COUNT 220 /CUMM (130-400); RBC DISTRIBUTION WIDTH 15.9 % (11.5-14.5); RED BLOOD CELL CT 3.07 /CUMM (4.20-5.40); WHITE BLOOD CELL COUNT 7.7 /CUMM (4.8-10.8)
--- NOTE | 2018-04-29 10:44 | PN- General Surgery ---
Subjective Subjective: error Objective Vital Signs and I&Os error Physical Exam: error Current Medications: error Assessment/Plan Assessment/Plan error Core Measures Venous Thromboembolism VTE Risk Factors Surgery No Mechanical VTE Prophylaxis d/t N/A MechProphylax Ordered No VTE Pharm Prophylaxis d/t NA PharmProphylax ordered 04/28 1419 98.2 74 22 120/80 98 04/28 1152 Room Air Intake & Output 04/29 1600 04/29 0800 04/29 0000 04/28 1600 04/28 0800 04/28 0000 Intake Total 200 1210 172 693 4724 Output Total 200 400 375 Balance 200 1210 40 300 955 Intake, IV 600 850 Intake, Oral 200 1210 240 100 480 Number 0 Bowel Movements Output, Urine 200 400 375 Patient 231 lb Weight Weight Bed scale Measurement Method Physical Exam: GEN- NAD CARD- S1S2 PULM- ABD- soft nt EXT- FS- 98, 148,205 UO- NOT RECORDED since august removed Current Medications: Current Medications Sig/Jose Start time Last Medication Dose Route Stop Time Status Admin Albuterol Sulfate 2 PUF Q4-6 PRN PRN 04/27 1130 AC INH Allopurinol 300 MG DAILY 04/28 0900 AC 04/29 PO 0842 Amlodipine Besylate 2.5 MG DAILY 04/28 0900 AC 04/29 PO 0842 Budesonide/ 2 PUF BID 04/27 2100 AC 04/29 Formoterol Fumarate INH 0844 Calcium Carbonate 500 MG TID PRN 04/27 1532 AC 04/28 PO 1931 Celecoxib 400 MG DAILY 04/28 0900 DC 04/29 PO 0843 Docusate Sodium 100 MG BID 04/29 2100 AC PO Docusate Sodium 100 MG DAILY NEEDED PRN 04/27 1130 DC PO Fenofibrate 145 MG DAILY 04/28 0900 AC 04/29 PO 0842 Hydrocodone Bitart/ 1 TAB Q6P PRN 04/27 1130 AC 04/28 Acetaminophen PO 0648 Hydrocodone Bitart/ 2 TAB Q6P PRN 04/27 1130 AC 04/28 Acetaminophen PO 2342 Insulin Detemir 26 UNITS QPM 04/27 2100 AC 04/28 SC 2100 Insulin Human Regular 6 UNITS .STK-MED ONE 04/28 1649 DC IV 04/28 1650 Insulin Human Regular 6 UNITS .STK-MED ONE 04/28 1246 DC IV 04/28 1247 Insulin Human Regular 0 TIDAC/HS 04/27 1200 AC 04/29 SC 0844 Losartan Potassium 100 MG DAILY 04/28 09 AC 04/29 PO 0843 Montelukast Sodium 10 MG AT BEDTIME 04/27 2100 AC 04/28 PO 205 Morphine Sulfate 2 MG Q3P PRN 04/29 1045 AC IV Morphine Sulfate 2 MG Q3P PRN 04/27 1130 DC 04/29 IV 0426 Morphine Sulfate 4 MG Q3P PRN 04/27 1130 DC 04/28 IV 0022 Omeprazole 40 MG DAILY AC 04/28 07 AC 04/29 PO 0616 Ondansetron HCl 4 MG Q6P PRN 04/27 1130 AC IV Polyethylene Glycol 17 GM DAILY 04/29 1039 AC PO Polyethylene Glycol 17 GM DAILY NEEDED PRN 04/27 1130 DC 04/28 PO 0840 Pregabalin 75 MG BID 04/27 2100 AC 04/29 PO 0843 Ramelteon 8 MG .STK-MED ONE 04/28 2057 DC PO 04/28 2058 Ramelteon 8 MG AT BEDTIME NEED.. 04/27 113 AC 04/28 PO 2058 Senna/Docusate Sodium 2 TAB AT BEDTIME NEED.. 04/27 1130 AC 04/28 PO 210 Sodium Chloride 1,000 ML Q13H 04/29 1045 AC IV Sodium Polystyrene 60 ML ONCE ONE 04/28 2045 DC 04/28 Sulfonate PO 04/28 2046 2337 Tiotropium [place] 1 PUF DAILY 04/28 09 AC 04/29 INH 0842 Warfarin Sodium 5 MG COUMADIN 1700 ONE 04/28 1700 DC 04/28 PO 04/28 1701 1656 Results Last 48 Hours of Labs: Laboratory Tests 04/29 04/28 0740 0727 Chemistry Sodium (137 - 145 mmol/L) 144 142 Potassium (3.5 - 5.1 mmol/L) 5.5 H 5.5 H Chloride (98 - 107 mmol/L) 106 104 Carbon Dioxide (22 - 30 mmol/L) 24 24 Anion Gap (5 - 16) 13 14 BUN (7 - 17 mg/dL) 60 H 42 H Creatinine (0.5 - 1.0 mg/dL) 2.4 H 1.8 H Estimated GFR (>60 ml/min) 19 L 27 L BUN/Creatinine Ratio (7 - 25 %) 25.0 23.3 Coagulation PT (9.4 - 12.5 SEC) 15.7 H 12.6 H INR (0.90 - 1.19) 1.44 H 1.15 Hematology CBC w Diff NO MAN DIFF REQ NO MAN DIFF REQ WBC (4.8 - 10.8 /CUMM) 7.7 12.6 H RBC (4.20 - 5.40 /CUMM) 3.07 L 3.40 L Hgb (12.0 - 16.0 G/DL) 9.1 L 10.3 L Hct (37 - 47 %) 27.7 L 30.4 L MCV (81.0 - 99.0 FL) 90.1 89.4 MCH (27.0 - 31.0 PG) 29.7 30.1 MCHC (33.0 - 37.0 G/DL) 32.9 L 33.7 RDW (11.5 - 14.5 %) 15.9 H 15.5 H Plt Count (130 - 400 /CUMM) 220 237 MPV (7.4 - 10.4 FL) 8.6 8.9 Gran % (42.2 - 75.2 %) 73.2 89.1 H Lymphocytes % (20.5 - 51.1 %) 14.9 L 5.2 L Monocytes % (1.7 - 9.3 %) 8.7 5.7 Eosinophils % (0 - 5 %) 2.6 0 Basophils % (0.0 - 2.0 %) 0.6 0 Absolute Granulocytes (1.4 - 6.5 /CUMM) 5.6 11.3 H Absolute Lymphocytes (1.2 - 3.4 /CUMM) 1.1 L 0.7 L Absolute Monocytes (0.10 - 0.60 /CUMM) 0.7 H 0.7 H Absolute Eosinophils (0.0 - 0.7 /CUMM) 0.2 0 Absolute Basophils (0.0 - 0.2 /CUMM) 0 0 Assessment/Plan Assessment/Plan A- POD2 sp R TKR, with OMAIRA on ?CRF, with persistant hyperkalemia dwespire kayex yesterday, othwerwise orthopedically stable P- hyperK- check ekg start ns trend labs coum per inr strict i&os- d/w rn and patient about importance oob, ambulate, wbat, pt dc planning fs controlled- cont current meds ada diet will dw attending ?medical consult for co-mgmt Core Measures Venous Thromboembolism VTE Risk Factors Surgery No Mechanical VTE Prophylaxis d/t N/A MechProphylax Ordered No VTE Pharm Prophylaxis d/t NA PharmProphylax ordered
--- NOTE | 2018-04-29 11:17 | PN- Orthopedic ---
See Addendum Subjective Subjective: feeling ok, pain controlled. no cp/sob/n/v. +voids Objective Vital Signs and I&Os Vital Signs Date Time Temp Pulse Resp B/P B/P Pulse O2 O2 Flow FiO2 Mean Ox Delivery Rate / 0843 98.4 66 18 136/62 /04 0842 98.4 66 18 136/62 07/04 0630 98.4 66 18 136/62 92 Room Air / 2250 98.0 65 20 120/60 95 Room Air 04/28 1600 Room Air 04/28 1547 Room Air 04/28 1419 98.2 74 22 120/80 98 /03 1152 Room Air Intake & Output 04/29 1600 04/29 0800 04/29 0000 04/28 1600 04/28 0800 04/28 0000 Intake Total 200 1210 235 253 6178 Output Total 200 400 375 Balance 200 1210 40 300 955 Intake, IV 600 850 Intake, Oral 200 1210 240 100 480 Number 0 Bowel Movements Output, Urine 200 400 375 Patient 231 lb Weight Weight Bed scale Measurement Method Physical Exam: GEN- NAD CARD- S1S2 PULM- +wheeze throughout ABD- obese soft nt EXT-calves soft nt, r knee shahid dc'ed, incision w steris- min serosang drainage on dressings. ttp at incision, no erythema or active drainage. palp pedal pulses, gross sensation intact, gross dorsi/plantar flexion intact FS- 98, 148,205 UO- NOT RECORDED since august removed Assessment/Plan Assessment/Plan A- POD2 sp R TKR, with OMAIRA on CRF with persistant hyperkalemia despite kayexalate yesterday, with hx COPD witn mild wheezing throughout, othwerwise orthopedically stable. P- hyperK- check ekg now start ns trend labs trcc, neb now coum per inr strict i&os- d/w rn and patient about importance oob, ambulate, wbat, pt dc planning fs controlled- cont current meds ada diet dw attending medical consult for co-mgmt- dw Dr. Braga Core Measures Venous Thromboembolism VTE Risk Factors Surgery No Mechanical VTE Prophylaxis d/t N/A MechProphylax Ordered No VTE Pharm Prophylaxis d/t NA PharmProphylax ordered
--- NOTE | 2018-04-29 11:18 | RADIOLOGY REPORT ---
EXAMINATION: XR KNEE, RIGHT CLINICAL INFORMATION: Status post right total knee arthroplasty COMPARISON: 09/08/2017 TECHNIQUE: AP and lateral views of the right knee. FINDINGS: The components of the total knee arthroplasty are in their expected positions. Alignment is anatomic. No acute periprosthetic fracture. Postoperative soft tissue swelling of the anterior knee and [id number]-[id number] joint effusion. Atherosclerotic calcification of peripheral vessels. IMPRESSION: Normal position and alignment of components of the total knee arthroplasty.
--- NOTE | 2018-04-29 12:12 | Cons- Medical ---
Iam Gerard 04/29/18 1212: General Information and HPI Consulting Request Date of Consult: 04/29/18 Requested By: Alejandro BANDA,Damon Reason for Consult: Acute kidney injury Hyperkalemia Source of Information: patient, family, old records Exam Limitations: no limitations History of Present Illness: 77-year-old woman with past medical history significant for COPD not on home oxygen, severe osteoarthritis, hypertension, GERD, insulin-dependent diabetes mellitus, chronic low back pain, history of kidney stones, POD 4 status post right knee arthroplasty, medicine was consulted as she was noted to have hyperkalemia and worsening kidney function today. On interview patient was sitting comfortably next to her bed and will was on bedside. About 3 weeks ago she reports that she had severe back pain for which she came to the ED and was told she had some kidney stones. Presently she denies being any pain, fever, chills, shortness of breath, chest pain, palpitations, nausea, vomiting, abdominal pain, She did have some mild shortness of breath earlier today when she was walking however she feels better after she received the nebulization today. She also endorses constipation since Friday. Allergies/Medications Allergies: Coded Allergies: oxycodone (From PERCOCET) (?PERCOCET - NAUSEA 01/01/16) codeine (GI UPSET 01/01/16) Home Med List: Albuterol Sulfate (Proair Hfa) 90 MCG HFA.AER.AD 2 PUF INH Q4-6 PRN PRN SHORTNESS OF BREATH (Reported) Allopurinol 300 MG TABLET 1 TAB PO DAILY kidney stones (Reported) Amlodipine Besylate 5 MG TABLET 1 TAB PO DAILY BLOOD PRESSURE Aspirin (Ecotrin*) 81 MG TABLET.DR 1 TAB PO DAILY HEART HEALTH (Reported) Cholecalciferol (Vitamin D3) 1,000 UNIT TABLET 1 TAB PO DAILY VITAMIN SUPPORT (Reported) Clotrimazole 1 % CREAM..G. 1 CASE TOP QAMPM PRN rash/itching apply to affected area(s) Cyanocobalamin (Vitamin B-12) (B-12 Dots) 500 MCG TABLET 1 TAB PO DAILY VITAMIN SUPPORT (Reported) Fenofibrate 160 MG TABLET 1 TAB PO DAILY CHOLESTEROL (Reported) Fluticasone/Salmeterol (Advair 250-50 Diskus) 250 MCG-50 MCG/DOSE BLST.W.DEV 1 PUF INH DAILY ASTHMA (Reported) Insulin Glargine,Hum.rec.anlog (Lantus Solostar) 100 UNIT/ML (3 ML) INSULN.PEN 26 UNIT SC QPM DIABETES (Reported) Insulin Lispro (Humalog Kwikpen U-100) (Unknown Strength) INSULN.PEN (Unknown Dose) SC TIDAC/HS DIABETES (Reported) Liraglutide (Victoza 3-Richard) 0.6 MG/0.1 ML (18 MG/3 ML) PEN.INJCTR 1.8 MG SC DAILY DIABETES (Reported) Montelukast Sodium (Singulair) 5 MG TAB.CHEW 2 TAB PO DAILY ASTHMA (Reported) Omeprazole 40 MG CAPSULE.DR 1 CAP PO DAILY GERD (Reported) Pregabalin (Lyrica) 75 MG CAPSULE 1 CAP PO DAILY PAIN (Reported) Tiotropium [place] (Spiriva) 18 MCG CAP.W.DEV 1 CAP INH DAILY COPD (Reported) Current Medications: Current Medications Sig/Jose Start time Last Medication Dose Route Stop Time Status Admin Albuterol Sulfate 3 ML BID 04/29 2100 AC INH Albuterol Sulfate 2 PUF Q4-6 PRN PRN 04/27 1130 AC INH Allopurinol 300 MG DAILY 04/28 09 AC 04/29 PO 0842 Amlodipine Besylate 2.5 MG DAILY 04/28 0900 AC 04/29 PO 0842 Budesonide/ 2 PUF BID 04/27 2100 AC 04/29 Formoterol Fumarate INH 0844 Calcium Carbonate 500 MG TID PRN 04/27 1532 AC 04/28 PO 1931 Celecoxib 400 MG DAILY 04/28 0900 DC 04/29 PO 0843 Docusate Sodium 100 MG BID 04/29 2100 AC PO Docusate Sodium 100 MG DAILY NEEDED PRN 04/27 1130 DC PO Fenofibrate 145 MG DAILY 04/28 09 AC 04/29 PO 0842 Hydrocodone Bitart/ 1 TAB Q6P PRN 04/27 1130 AC 04/28 Acetaminophen PO 0648 Hydrocodone Bitart/ 2 TAB Q6P PRN 04/27 1130 AC 04/29 Acetaminophen PO 1302 Insulin Detemir 26 UNITS QPM 04/27 2100 AC 04/28 SC 2100 Insulin Human Regular 6 UNITS .STK-MED ONE 04/28 1649 DC IV 07/03 1650 Insulin Human Regular 0 TIDAC/HS 04/27 1200 AC 04/29 SC 1303 Losartan Potassium 100 MG DAILY 04/28 09 AC 04/29 PO 0843 Montelukast Sodium 10 MG AT BEDTIME 04/27 2100 AC 04/28 PO 2059 Morphine Sulfate 2 MG Q3P PRN 04/29 1045 AC IV Morphine Sulfate 2 MG Q3P PRN 04/27 1130 DC 04/29 IV 0426 Morphine Sulfate 4 MG Q3P PRN 04/27 1130 DC 04/28 IV 0022 Omeprazole 40 MG DAILY AC 04/28 0700 AC 04/29 PO 0616 Ondansetron HCl 4 MG Q6P PRN 04/27 1130 AC IV Polyethylene Glycol 17 GM DAILY 04/29 1039 AC 04/29 PO 1302 Polyethylene Glycol 17 GM DAILY NEEDED PRN 04/27 1130 DC 04/28 PO 0840 Pregabalin 75 MG BID 04/27 2100 AC 04/29 PO 0843 Ramelteon 8 MG .STK-MED ONE 04/28 2057 DC PO 04/28 2058 Ramelteon 8 MG AT BEDTIME NEED.. 04/27 1130 AC 04/28 PO 2058 Senna/Docusate Sodium 2 TAB AT BEDTIME NEED.. 04/27 1130 AC 04/28 PO 210 Sodium Chloride 1,000 ML Q13H 04/29 1045 AC 04/29 IV 1303 Sodium Polystyrene 60 ML ONCE ONE 04/28 2045 DC 04/28 Sulfonate PO 04/28 2046 2337 Tiotropium [place] 1 PUF DAILY 04/28 09 04/29 INH 0842 Warfarin Sodium 5 MG COUMADIN 1700 ONE 04/29 1700 AC 04/29 PO 04/29 1701 1613 Warfarin Sodium 5 MG COUMADIN 1700 ONE 04/28 1700 DC 04/28 PO 04/28 1701 1656 Review of Systems Review of Systems Constitutional: Reports: see HPI. Past History Medical History Blood Transfusion Hx: No Neurological: dizziness EENT: NONE Cardiovascular: CHF, hypertension, hyperlipidemia Respiratory: asthma, COPD Gastrointestinal: NONE Hepatic: cholangitis Renal: NONE (stones) Musculoskeletal: CHRONIC BACK PAIN Psychiatric: NONE Endocrine: DIABETES (IDDM) Blood Disorders: NONE Cancer(s): NONE CHEMICAL MAKER/Reproductive: NONE Surgical History Surgical History: cholecystectomy, hysterectomy Family History Relations & Conditions If Any: BROTHER MOTHER FATHER SISTER BROTHER (lung ca). SISTER (emphysema). Relation not specified for: FH: brain cancer FH: colon cancer FH: diabetes mellitus FH: ischemic heart disease Psychosocial History Who Do You Live With? spouse Services at Home: None Primary Language: Thai Smoking Status: Former Smoker Living Will? no Functional Ability ADLs Independent: dressing, eating, toileting, bathing. Ambulation: independent IADLs Independent: shopping, housework, finances, food prep, telephone, medication admin. Needs Assist: transportation. Exam & Diagnostic Data Last 24 Hrs of Vital Signs/I&O Vital Signs Date Time Temp Pulse Resp B/P B/P Pulse O2 O2 Flow FiO2 Mean Ox Delivery Rate 04/29 1600 Room Air 04/29 1522 97.6 74 22 120/60 95 / 1402 Room Air Room Air / 0843 98.4 66 18 136/62 / 0842 98.4 66 18 136/62 / 0630 98.4 66 18 136/62 92 Room Air 04/28 2250 98.0 65 20 120/60 95 Room Air Intake & Output 04/29 1600 /04 0800 07/04 0000 Intake Total 771 354 5177 Output Total 200 Balance 740 945 4180 Intake, Oral 769 199 5879 Output, Urine 200 Physical Exam General Appearance: no apparent distress, alert, awake, comfortable Respiratory: quiet respiration Cardiovascular: regular rate/rhythm, edema Extremities: no edema Last 24 Hrs of Labs/Nirmal: Laboratory Tests 04/29/18 0740: Anion Gap 13, Estimated GFR 19 L, BUN/Creatinine Ratio 25.0, PT 15.7 H, INR 1.44 H, CBC w Diff NO MAN DIFF REQ, RBC 3.07 L, MCV 90.1, MCH 29.7, MCHC 32.9 L, RDW 15.9 H, MPV 8.6, Gran % 73.2, Lymphocytes % 14.9 L, Monocytes % 8.7, Eosinophils % 2.6, Basophils % 0.6, Absolute Granulocytes 5.6, Absolute Lymphocytes 1.1 L, Absolute Monocytes 0.7 H, Absolute Eosinophils 0.2, Absolute Basophils 0 Diagnostic Data Other Results SERVICE DATE: 04/29/18 EXAM TYPE: RAD - XRY-KNEE, RIGHT FINDINGS: The components of the total knee arthroplasty are in their expected positions. Alignment is anatomic. No acute periprosthetic fracture. Postoperative soft tissue swelling of the anterior knee and tbqvy-[id number]-feomqvqs joint effusion. Atherosclerotic calcification of peripheral vessels. IMPRESSION: Normal position and alignment of components of the total knee arthroplasty. Assessment/Plan Assessment/Plan 77-year-old woman with past medical history significant for COPD not on home oxygen, severe osteoarthritis, hypertension, GERD, insulin-dependent diabetes mellitus, chronic low back pain, history of kidney stones, POD 4 status post right knee arthroplasty, medicine was consulted as she was noted to have hyperkalemia and worsening kidney function today. She was noted to have hyperkalemia and was given Kayexalate yesterday however her potassium remains elevated at 5.5. Her AK I trended up from 1.8-2.4 her baseline seems to be around 1.31.5. Imaging done March 31, 2018 is significant for 0.2 cm nonobstructive calculus in the right lower pole of the kidney with exophytic masses. Problem list Status post total knee arthroplasty Hyperkalemia OMAIRA on CKD Insulin-dependent diabetes mellitus COPD Plan: Continue with IV fluids, recommend holding her Cozaar and decreasing her allopurinol from 300 mg 200 mg. avoid nephrotoxic medications such as NSAIDs, morphine. Patient does see Dr. Hyman and if her kidney function does not improve can consider ultrasound of the kidneys and urology consult. Continue to monitor creatinine. Even though she is given Kayexalate she has not had a bowel movement. She is only been given MiraLAX consider giving Colace and senna. EKG shows no peak T waves. Can continue to monitor. Encourage incentive spirometry Accu-Cheks well controlled on current regimen continue same for now Thank you for your consult will follow along with you Please call with any questions, Attending Recs to follow DVT prophylaxis on Coumadin Full code Consult Acknowledgment - Thank you for your consult request. Hans BANDA,Rand 04/29/18 0222: Assessment/Plan Consult Acknowledgment - Thank you for your consult request. Attending Review Statement Attending Statement Attending Statement: examined this patient, discuss w/resident/PA/TRANSPORTATION REFRIGERATION TECHNICIAN, agreed w/resident/PA/TRANSPORTATION REFRIGERATION TECHNICIAN, discussed with family, reviewed EMR data (avail), discussed with nursing, amended to note Attending Assessment/Plan: 77 y/o F with pmh sig for COPD not on home oxygen, severe osteoarthritis, hypertension, GERD, insulin-dependent diabetes mellitus, chronic low back pain, history of kidney stones, status post right TKA for osteoarthritis postop day #2 today. Medicine is consulted for acute kidney injury. Patient herself feels well. She does have some pain in her right knee but overall doing well. She is working with physical therapy. She does have history of chronic kidney disease stage III and does admit to drinking less fluids. She denies any abdominal pain. She also has slight hyperkalemia but her EKG does not show any T waves. Noted that she was also on losartan. Vital Signs Date Time Temp Pulse Resp B/P B/P Pulse O2 O2 Flow FiO2 Mean Ox Delivery Rate 04/29 1600 Room Air 04/29 1522 97.6 74 22 120/60 95 / 1402 Room Air Room Air / 0843 98.4 66 18 136/62 07/04 0842 98.4 66 18 136/62 /04 0630 98.4 66 18 136/62 92 Room Air 04/28 2250 98.0 65 20 120/60 95 Room Air on exam; aox,3 nad. cv; s1,s2, rrr, soft sytolic murmur. resp; clear abd; soft, nt, bs+ ext: no edema right knee with dressing on. Laboratory Tests 04/29 0740 Chemistry Sodium (137 - 145 mmol/L) 144 Potassium (3.5 - 5.1 mmol/L) 5.5 H Chloride (98 - 107 mmol/L) 106 Carbon Dioxide (22 - 30 mmol/L) 24 Anion Gap (5 - 16) 13 BUN (7 - 17 mg/dL) 60 H Creatinine (0.5 - 1.0 mg/dL) 2.4 H Estimated GFR (>60 ml/min) 19 L BUN/Creatinine Ratio (7 - 25 %) 25.0 Coagulation PT (9.4 - 12.5 SEC) 15.7 H INR (0.90 - 1.19) 1.44 H Hematology CBC w Diff NO MAN DIFF REQ WBC (4.8 - 10.8 /CUMM) 7.7 RBC (4.20 - 5.40 /CUMM) 3.07 L Hgb (12.0 - 16.0 G/DL) 9.1 L Hct (37 - 47 %) 27.7 L MCV (81.0 - 99.0 FL) 90.1 MCH (27.0 - 31.0 PG) 29.7 MCHC (33.0 - 37.0 G/DL) 32.9 L RDW (11.5 - 14.5 %) 15.9 H Plt Count (130 - 400 /CUMM) 220 MPV (7.4 - 10.4 FL) 8.6 Gran % (42.2 - 75.2 %) 73.2 Lymphocytes % (20.5 - 51.1 %) 14.9 L Monocytes % (1.7 - 9.3 %) 8.7 Eosinophils % (0 - 5 %) 2.6 Basophils % (0.0 - 2.0 %) 0.6 Absolute Granulocytes (1.4 - 6.5 /CUMM) 5.6 Absolute Lymphocytes (1.2 - 3.4 /CUMM) 1.1 L Absolute Monocytes (0.10 - 0.60 /CUMM) 0.7 H Absolute Eosinophils (0.0 - 0.7 /CUMM) 0.2 Absolute Basophils (0.0 - 0.2 /CUMM) 0 EKG shows sinus rhythm without any peaking of T waves. Assessment and recommendations: 77 y/o F with pmh sig for COPD not on home oxygen, severe osteoarthritis, hypertension, GERD, insulin-dependent diabetes mellitus, chronic low back pain, history of kidney stones, status post right TKA for osteoarthritis postop day #2 today. Medicine is consulted for acute kidney injury. This could certainly represent prerenal azotemia as her BUN is also high. Recommend gentle IV hydration. Hold losartan. Avoid any NSAIDs or any other nephrotoxic medications. We'll continue to monitor creatinine. If there is no improvement in the next 24 hours with IV hydration, will consider doing a renal ultrasound and obtaining a nephrology consult. Apparently she patient does have a history off complex renal cysts in the past on previous CAT scans. Postop care per orthopedic. Patient on narcotics for pain management. She is also on Coumadin for DVT prophylaxis per orthopedic. Thank you very much for allowing us to participate in the care of this patient, will follow along with you. I paged surgical PA to discuss the plan. Waiting to hear back.
[2018-04-29 15:22] VITALS: BP 120/60
[2018-04-29 22:36] VITALS: BP 102/60
[2018-04-30 03:40] VITALS: BP 120/60
[2018-04-30 06:40] VITALS: BP 118/64
--- NOTE | 2018-04-30 07:48 | PN- Medicine Consult ---
Iam Gerard 04/30/18 0747: Assessment/PlanMedical Consult Assessment/Plan Assessment: 77-year-old woman with past medical history significant for COPD not on home oxygen, severe osteoarthritis, hypertension, GERD, insulin-dependent diabetes mellitus, chronic low back pain, history of kidney stones, right kidney exophytic masses. POD 5 status post right knee arthroplasty, medicine consulted for mild hyperkalemia and worsening kidney function. Plan: Problem list: Status post total knee arthroplasty Hyperkalemia OMAIRA on CKD Insulin-dependent diabetes mellitus COPD Plan: Continue with IV fluids,continue holding her Cozaar avoid nephrotoxic medications such as NSAIDs, terms of morphine yesterday, regarding morphine manufactures labeling suggest alternate opioid asIt can in the setting of baseline renal impairment or rapidly changing renal function as in can resulting in increased sensitivity; patients may experience severe and prolonged respiratory depression, dilaudid suitable alternative Creatinine 2.4-> 2.3, recomend obtain ultrasound of the kidneys today (she will need to be kept NPO), Nephro consult hyperkalemia likely secondary to renal insufficiency. Continues to be constipated since past 3 days continue Colace and senna. Continue to monitor BEP Encourage incentive spirometry Accu-Cheks well controlled on current regimen, continue same for now Thank you for your consult will follow along with you Above discussed with surgical PA Please call with any questions, Attending Recs to follow DVT prophylaxis on Coumadin Full code Subjective Subjective: Seen and examined patient this morning sitting bedside. Complains of constipation since the past 3 days. Denies fever, chills, nausea, abdominal pain, dysuria, decreased urine output or shortness of breath. Review of Systems Constitutional: Denies: see HPI. Objective Last 24 Hrs of Vital Signs/I&O Vital Signs Date Time Temp Pulse Resp B/P B/P Pulse O2 O2 Flow FiO2 Mean Ox Delivery Rate 04/30 0841 86 120/82 / 0640 97.7 71 20 118/64 95 Room Air 04/30 0340 86 18 120/60 95 Room Air / 2236 98.3 76 20 102/60 94 Room Air / 1900 93 Room Air 04/29 1600 Room Air 04/29 1522 97.6 74 22 120/60 95 /04 1402 Room Air Room Air Intake & Output 04/30 1600 04/30 0800 07 0000 Intake Total 960 1400 Output Total 300 Balance 660 1400 Intake, IV 600 600 Intake, Oral 360 800 Output, Urine 300 Patient 243 lb Weight Physical Exam General Appearance: no apparent distress, alert, awake, comfortable Cardiovascular: regular rate/rhythm Respiratory: normal breath sounds Abdomen: normal bowel sounds, soft, non-tender, distention Current Medications: Current Medications Sig/Jose Start time Last Medication Dose Route Stop Time Status Admin Albuterol Sulfate 3 ML BID 04/29 2100 AC 04/29 INH 1858 Albuterol Sulfate 2 PUF Q4-6 PRN PRN 04/27 1130 AC INH Allopurinol 200 MG DAILY 04/30 900 AC 04/30 PO 0840 Allopurinol 300 MG DAILY 04/28 900 DC 04/29 PO 0842 Amlodipine Besylate 2.5 MG DAILY 04/28 900 AC 04/30 PO 0841 Budesonide/ 2 PUF BID 04/27 2100 AC 04/30 Formoterol Fumarate INH 0843 Calcium Carbonate 500 MG TID PRN 04/27 1532 AC 04/28 PO 1931 Celecoxib 400 MG DAILY 04/28 900 DC 04/29 PO 0843 Docusate Sodium 100 MG BID 04/29 2100 AC 04/30 PO 0842 Docusate Sodium 100 MG DAILY NEEDED PRN 04/27 1130 DC PO Fenofibrate 145 MG DAILY 04/28 900 AC 04/30 PO 0840 Hydrocodone Bitart/ 1 TAB Q6P PRN 04/27 1130 AC 04/30 Acetaminophen PO 0843 Hydrocodone Bitart/ 2 TAB Q6P PRN 04/27 1130 AC 04/29 Acetaminophen PO 1302 Insulin Detemir 26 UNITS QPM 04/27 2100 AC 04/29 SC 2038 Insulin Human Regular 6 UNITS .STK-MED ONE 04/29 1718 DC IV 04/29 1719 Insulin Human Regular 2 UNITS .STK-MED ONE 04/29 1256 DC IV 04/29 1257 Insulin Human Regular 0 TIDAC/HS 04/27 1200 AC 04/30 SC 0843 Losartan Potassium 100 MG DAILY 04/28 09 DC 04/29 PO 0843 Montelukast Sodium 10 MG AT BEDTIME 04/27 2100 AC 04/29 PO 2038 Morphine Sulfate 2 MG Q3P PRN 04/29 1045 AC 04/30 IV 0345 Morphine Sulfate 2 MG Q3P PRN 04/27 1130 DC 04/29 IV 0426 Morphine Sulfate 4 MG Q3P PRN 04/27 1130 MD 04/28 IV 0022 Omeprazole 40 MG DAILY AC 04/28 0700 AC 04/30 PO 0630 Ondansetron HCl 4 MG Q6P PRN 04/27 1130 IV Polyethylene Glycol 17 GM DAILY 04/29 1039 AC 04/30 PO 0843 Polyethylene Glycol 17 GM DAILY NEEDED PRN 04/27 1130 MD 04/28 PO 0840 Pregabalin 75 MG BID 04/27 2100 AC 04/30 PO 0843 Ramelteon 8 MG .STK-MED ONE 04/29 2205 MD PO 04/29 220 Ramelteon 8 MG AT BEDTIME NEED.. 04/27 1130 04/29 PO 2206 Senna/Docusate Sodium 2 TAB AT BEDTIME NEED.. 04/27 1130 04/28 PO 2102 Sodium Chloride 1,000 ML Q13H 04/29 1045 04/30 IV 0102 Tiotropium [place] 1 PUF DAILY 04/28 0900 04/30 INH 0843 Warfarin Sodium 5 MG COUMADIN 1700 ONE 04/29 1700 MD 04/29 PO 04/29 1701 1613 Results Last 24 Hrs Lab/Nirmal Results: Laboratory Tests 04/30/18 0615: Anion Gap 11, Estimated GFR 20 L, BUN/Creatinine Ratio 27.0 H, Glucose 121 H, PT 20.1 H, INR 1.83 H, CBC w Diff NO MAN DIFF REQ, RBC 3.02 L, MCV 90.1, MCH 29.8, MCHC 33.1, RDW 15.7 H, MPV 9.1, Gran % 74.2, Lymphocytes % 12.1 L, Monocytes % 10.0 H, Eosinophils % 3.1, Basophils % 0.6, Absolute Granulocytes 5.0, Absolute Lymphocytes 0.8 L, Absolute Monocytes 0.7 H, Absolute Eosinophils 0.2, Absolute Basophils 0 04/30/18 0330: Urinalysis LIGHT H, Urine Color YEL, Urine Clarity HAZY H, Urine pH 6.0, Ur Specific [place] 1.015, Urine Protein NEG, Urine Ketones NEG, Urine Nitrite NEG, Urine Bilirubin NEG, Urine Urobilinogen 0.2, Ur Leukocyte Esterase MOD H, Ur Microscopic SEDIMENT EXAMINED, Urine RBC 3-5, Urine WBC 5-10 H, Ur Epithelial Cells FEW, Urine Bacteria FEW H, Urine Mucus FEW, Urine Hemoglobin NEG, Urine Glucose NEG Rand Maxwell MD 04/30/18 1115: Attending MD Review Statement Attending Sign Off Attending Cosign Statement: I have: examined this patient, reviewed aval EMR data, personally reviewd images, discussed mgmt plan w/no, discussed mgmt plan w/CM, discussed mgmt plan w/pt, agreed w/resident/PA/IT COMPLIANCE ANALYST, amended to note. Other Findings: Patient seen and examined, feels well and offers no complaints. Cr did not improve compared to yesterday. Vital Signs Date Time Temp Pulse Resp B/P B/P Pulse O2 O2 Flow FiO2 Mean Ox Delivery Rate 04/30 0956 92 Room Air 04/30 0841 86 120/82 04/30 0640 97.7 71 20 118/64 95 Room Air / 0340 86 18 120/60 95 Room Air / 2236 98.3 76 20 102/60 94 Room Air 04/29 1900 93 Room Air 04/29 1600 Room Air /04 1522 97.6 74 22 120/60 95 07/04 1402 Room Air Room Air on exam: aox,3 nad. cv; s1,s2, rrr, soft sytolic murmur. resp; clear abd; soft, nt, bs+ ext: no edema right knee with dressing on and wound looks clean with steri strips on. Laboratory Tests 04/30 04/30 0615 0330 Chemistry Sodium (137 - 145 mmol/L) 141 Potassium (3.5 - 5.1 mmol/L) 5.5 H Chloride (98 - 107 mmol/L) 105 Carbon Dioxide (22 - 30 mmol/L) 26 Anion Gap (5 - 16) 11 BUN (7 - 17 mg/dL) 62 H Creatinine (0.5 - 1.0 mg/dL) 2.3 H Estimated GFR (>60 ml/min) 20 L BUN/Creatinine Ratio (7 - 25 %) 27.0 H Glucose (65 - 99 mg/dL) 121 H Coagulation PT (9.4 - 12.5 SEC) 20.1 H INR (0.90 - 1.19) 1.83 H Hematology CBC w Diff NO MAN DIFF REQ WBC (4.8 - 10.8 /CUMM) 6.7 RBC (4.20 - 5.40 /CUMM) 3.02 L Hgb (12.0 - 16.0 G/DL) 9.0 L Hct (37 - 47 %) 27.2 L MCV (81.0 - 99.0 FL) 90.1 MCH (27.0 - 31.0 PG) 29.8 MCHC (33.0 - 37.0 G/DL) 33.1 RDW (11.5 - 14.5 %) 15.7 H Plt Count (130 - 400 /CUMM) 226 MPV (7.4 - 10.4 FL) 9.1 Gran % (42.2 - 75.2 %) 74.2 Lymphocytes % (20.5 - 51.1 %) 12.1 L Monocytes % (1.7 - 9.3 %) 10.0 H Eosinophils % (0 - 5 %) 3.1 Basophils % (0.0 - 2.0 %) 0.6 Absolute Granulocytes (1.4 - 6.5 /CUMM) 5.0 Absolute Lymphocytes (1.2 - 3.4 /CUMM) 0.8 L Absolute Monocytes (0.10 - 0.60 /CUMM) 0.7 H Absolute Eosinophils (0.0 - 0.7 /CUMM) 0.2 Absolute Basophils (0.0 - 0.2 /CUMM) 0 Urines Urinalysis LIGHT H Urine Color (YEL,AMB,STR) YEL Urine Clarity (CLEAR) HAZY H Urine pH (5.0 - 8.0) 6.0 Ur Specific [place] (1.001 - 1.035) 1.015 Urine Protein (NEG,<30 MG/DL) NEG Urine Ketones (NEG) NEG Urine Nitrite (NEG) NEG Urine Bilirubin (NEG) NEG Urine Urobilinogen (0.1 - 1.0 EU/dl) 0.2 Ur Leukocyte Esterase (NEG) MOD H Ur Microscopic SEDIMENT EXAMINED Urine RBC (0 - 5 /HPF) 3-5 Urine WBC (0 - 2 /HPF) 5-10 H Ur Epithelial Cells (NONE,FEW) FEW Urine Bacteria (NEG/NONE) FEW H Urine Mucus (FEW,NONE) FEW Urine Hemoglobin (NEG) NEG Urine Glucose (N MG/DL) NEG Assessment and recommendations: 77 y/o F with pmh sig for COPD not on home oxygen, severe osteoarthritis, hypertension, GERD, insulin-dependent diabetes mellitus, chronic low back pain, history of kidney stones, status post right TKA for osteoarthritis postop day #3 today. Medicine is consulted for acute kidney injury. Creatinine remains in the same range. Would recommend getting a renal ultrasound and getting a nephrology consult. Patient also remains hyperkalemic. We have hold her losartan today. We also had decreased the dose of allopurinol because of rising creatinine. BUN/creatinine back to baseline, please put her back on her home dose of allopurinol. INR slowly rising on Coumadin. Continue the rest of the management. Patient on Coumadin for DVT px as per orthopedic. Please follow further nephrology recommendations and renal ultrasound. Would recommend Low K diet.
--- NOTE | 2018-04-30 08:04 | PN- Orthopedic ---
See Addendum Subjective Subjective: No acute overnight events. Pt reports improved voiding, no bm. Denies chest pain or shortness of breath. Denies nausea or vomitting. Has been ambulating. Anticipates working with PT today. Is curious about when she will be discharged , is aware we are following labs. Objective Vital Signs and I&Os Vital Signs Date Time Temp Pulse Resp B/P B/P Pulse O2 O2 Flow FiO2 Mean Ox Delivery Rate 04/30 0640 97.7 71 20 118/64 95 Room Air 07/05 0340 86 18 120/60 95 Room Air 07/04 2236 98.3 76 20 102/60 94 Room Air 07/04 1900 93 Room Air /04 1600 Room Air 07/04 1522 97.6 74 22 120/60 95 07/04 1402 Room Air Room Air 07/04 0843 98.4 66 18 136/62 07/04 0842 98.4 66 18 136/62 Intake & Output / 0800 07/05 0000 07/04 1600 /04 0800 07/04 0000 07/03 1600 Intake Total 960 1400 536 928 7828 240 Output Total 300 200 200 Balance 660 1400 637 361 8978 40 Intake, IV 600 600 Intake, Oral 360 800 383 147 9624 240 Output, Urine 300 200 200 Patient 243 lb Weight Physical Exam: General: Alert and oriented x3, no acute distress Cardiac: RRR, s1s2 Pulm: CTA, non-labored respiratory effort Abd: Non-tender, non-distended Extremities: Moves all extremiteis, distal sensation intact, skin warm and well perfused. Bilateral calves soft and nontender. Surgical site: R knee, dressing dry and intact. No surrounding erythema Assessment/Plan Assessment/Plan This is a 77 year old, pod 3, s/p R tkr -Follow up labs this am, watching creatinine and potassium, continue fluids for now -OOB, wbat -Continue coumadin for dvt ppx -Continue current pain regimen -Appreciate medicine team input regarding home meds, lasix-pt states she takes it daily -Discharge planning when stable from medical standpoint Will discuss plan of care with Dr. Allen Core Measures Venous Thromboembolism VTE Risk Factors Surgery No Mechanical VTE Prophylaxis d/t N/A MechProphylax Ordered No VTE Pharm Prophylaxis d/t NA PharmProphylax ordered
[2018-04-30 08:20] LABS: PT 20.1 SEC (9.4-12.5)
[2018-04-30 08:24] LABS: ABSOLUTE BASOPHIL COUNT 0 /CUMM (0.0-0.2); ABSOLUTE EOSINOPHIL COUNT 0.2 /CUMM (0.0-0.7); ABSOLUTE LYMPH COUNT 0.8 /CUMM (1.2-3.4); ABSOLUTE MONOCYTE COUNT 0.7 /CUMM (0.10-0.60); BASOPHIL % 0.6 % (0.0-2.0); EOSINOPHIL % 3.1 % (0-5); GRANULOCYTE % 74.2 % (42.2-75.2); HEMATOCRIT 27.2 % (37-47); MEAN CORPUSCULAR HGB 29.8 PG (27.0-31.0); MEAN CORPUSCULAR HGB CONC 33.1 G/DL (33.0-37.0); MEAN CORPUSCULAR VOLUME 90.1 FL (81.0-99.0); MEAN PLATELET VOLUME 9.1 FL (7.4-10.4); PLATELET COUNT 226 /CUMM (130-400); RBC DISTRIBUTION WIDTH 15.7 % (11.5-14.5); RED BLOOD CELL CT 3.02 /CUMM (4.20-5.40); WHITE BLOOD CELL COUNT 6.7 /CUMM (4.8-10.8)
--- NOTE | 2018-04-30 12:05 | Cons- Nephrology ---
General Information and HPI Consulting Request Date of Consult: 04/30/18 Requested By: Alejandro BANDA,Damon Reason for Consult: OMAIRA on CKD Source of Information: patient, old records Exam Limitations: no limitations History of Present Illness: Pleasant 77 yo female with >30 year h/o DM (on insulin, no h/o retinopathy) & HTN, CKD stage 3 with baseline creat 1.5 and trace protein on dipstick, obesity, GERD, COPD, pulm nodules, L renal complex cysts vs masses x4 (already says she was referred to see Dr Hyman as an outpatient), admitted friday for elective R TKR for severe OA. She took her ARB the morning prior to surgery. Creat was 1.8 on POD #1, 2.4 on POD #2, and 2.3 today. BP mildly low at 102/60 perioperatively . August was removed on POD #1. No NSAIDS in the hospital, however, at home was taking Alleve regulalry up to a month ago. Allergies/Medications Allergies: Coded Allergies: oxycodone (From PERCOCET) (?PERCOCET - NAUSEA 03//) codeine (GI UPSET 12/31/) Home Med List: Albuterol Sulfate (Proair Hfa) 90 MCG HFA.AER.AD 2 PUF INH Q4-6 PRN PRN SHORTNESS OF BREATH (Reported) Allopurinol 300 MG TABLET 1 TAB PO DAILY kidney stones (Reported) Amlodipine Besylate 5 MG TABLET 1 TAB PO DAILY BLOOD PRESSURE Aspirin (Ecotrin*) 81 MG TABLET.DR 1 TAB PO DAILY HEART HEALTH (Reported) Cholecalciferol (Vitamin D3) 1,000 UNIT TABLET 1 TAB PO DAILY VITAMIN SUPPORT (Reported) Clotrimazole 1 % CREAM..G. 1 CASE TOP QAMPM PRN rash/itching apply to affected area(s) Cyanocobalamin (Vitamin B-12) (B-12 Dots) 500 MCG TABLET 1 TAB PO DAILY VITAMIN SUPPORT (Reported) Fenofibrate 160 MG TABLET 1 TAB PO DAILY CHOLESTEROL (Reported) Fluticasone/Salmeterol (Advair 250-50 Diskus) 250 MCG-50 MCG/DOSE BLST.W.DEV 1 PUF INH DAILY ASTHMA (Reported) Insulin Glargine,Hum.rec.anlog (Lantus Solostar) 100 UNIT/ML (3 ML) INSULN.PEN 26 UNIT SC QPM DIABETES (Reported) Insulin Lispro (Humalog Kwikpen U-100) (Unknown Strength) INSULN.PEN (Unknown Dose) SC TIDAC/HS DIABETES (Reported) Liraglutide (Victoza 3-Richard) 0.6 MG/0.1 ML (18 MG/3 ML) PEN.INJCTR 1.8 MG SC DAILY DIABETES (Reported) Montelukast Sodium (Singulair) 5 MG TAB.CHEW 2 TAB PO DAILY ASTHMA (Reported) Omeprazole 40 MG CAPSULE.DR 1 CAP PO DAILY GERD (Reported) Pregabalin (Lyrica) 75 MG CAPSULE 1 CAP PO DAILY PAIN (Reported) Tiotropium [place] (Spiriva) 18 MCG CAP.W.DEV 1 CAP INH DAILY COPD (Reported) Current Medications: Current Medications Sig/Jose Start time Last Medication Dose Route Stop Time Status Admin Albuterol Sulfate 3 ML BID 04/29 2100 AC 04/30 INH 0955 Albuterol Sulfate 2 PUF Q4-6 PRN PRN 04/27 1130 AC INH Allopurinol 200 MG DAILY 04/30 0900 AC 04/30 PO 0840 Allopurinol 300 MG DAILY 04/28 0900 DC 04/29 PO 0842 Amlodipine Besylate 2.5 MG DAILY 04/28 09 AC 04/30 PO 0841 Budesonide/ 2 PUF BID 04/27 2100 AC 04/30 Formoterol Fumarate INH 0843 Calcium Carbonate 500 MG TID PRN 04/27 1532 AC 04/28 PO 1931 Docusate Sodium 100 MG BID 04/29 2100 AC 04/30 PO 0842 Fenofibrate 145 MG DAILY 04/28 0900 AC 04/30 PO 0840 Hydrocodone Bitart/ 1 TAB Q6P PRN 04/27 1130 AC 04/30 Acetaminophen PO 0843 Hydrocodone Bitart/ 2 TAB Q6P PRN 04/27 1130 AC 04/29 Acetaminophen PO 1302 Insulin Detemir 26 UNITS QPM 04/27 2100 AC 04/29 SC 2038 Insulin Human Regular 6 UNITS .STK-MED ONE 04/29 1718 DC IV 04/29 1719 Insulin Human Regular 2 UNITS .STK-MED ONE 04/29 1256 DC IV 04/29 1257 Insulin Human Regular 0 TIDAC/HS 04/27 1200 AC 04/30 SC 0843 Losartan Potassium 100 MG DAILY 04/28 0900 DC 04/29 PO 0843 Montelukast Sodium 10 MG AT BEDTIME 04/27 2100 AC 04/29 PO 2038 Morphine Sulfate 2 MG Q3P PRN 04/29 1045 AC 04/30 IV 0345 Omeprazole 40 MG DAILY AC 04/28 0700 AC 04/30 PO 0630 Ondansetron HCl 4 MG Q6P PRN 04/27 1130 AC IV Polyethylene Glycol 17 GM DAILY 04/29 1039 AC 04/30 PO 0843 Pregabalin 75 MG BID 04/27 2100 AC 04/30 PO 0843 Ramelteon 8 MG .STK-MED ONE 04/29 220 DC PO 04/29 220 Ramelteon 8 MG AT BEDTIME NEED.. 04/27 1130 AC 04/29 PO 2206 Senna/Docusate Sodium 2 TAB AT BEDTIME NEED.. 04/27 1130 AC 04/28 PO 2102 Sodium Chloride 1,000 ML Q13H 04/29 1045 04/30 IV 0102 Tiotropium [place] 1 PUF DAILY 04/28 0900 AC 04/30 INH 0843 Warfarin Sodium 5 MG COUMADIN 1700 ONE 04/30 1700 AC PO 04/30 1701 Warfarin Sodium 5 MG COUMADIN 1700 ONE 04/29 1700 DC 04/29 PO 04/29 1701 1613 Review of Systems Review of Systems: gen: no fever/chills : making urine, no dysuria renal: no edema, metallic taste skin: no rash/pruritis CV: +ROMO. 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 SISTER (emphysema). Relation not specified for: FH: brain cancer FH: colon cancer FH: diabetes mellitus FH: ischemic heart disease Psychosocial History Who Do You Live With? spouse Services at Home: None Primary Language: Maldivian Smoking Status: Former Smoker Living Will? no Functional Ability ADLs Independent: dressing, eating, toileting, bathing. Ambulation: independent IADLs Independent: shopping, housework, finances, food prep, telephone, medication admin. Needs Assist: transportation. Exam & Diagnostic Data Vital Signs and I&O Vital Signs Date Time Temp Pulse Resp B/P B/P Pulse O2 O2 Flow FiO2 Mean Ox Delivery Rate 04/30 0956 92 Room Air 04/30 0841 86 120/82 04/30 0640 97.7 71 20 118/64 95 Room Air 04/30 0340 86 18 120/60 95 Room Air / 2236 98.3 76 20 102/60 94 Room Air 04/29 1900 93 Room Air 04/29 1600 Room Air 04/29 1522 97.6 74 22 120/60 95 /04 1402 Room Air Room Air Intake & Output 04/30 1600 04/30 0400 04/29 1600 04/29 0400 04/28 1600 04/28 0400 Intake Total 960 1400 1060 7927 206 2045 Output Total 300 200 600 375 Balance 660 7021 159 1360 340 955 Intake, IV 600 600 600 850 Intake, Oral 900 552 0574 1210 340 480 Number 0 Bowel Movements Output, Urine 300 200 600 375 Patient 243 lb 231 lb Weight Weight Bed scale Measurement Method Physical Exam: Gen: NAD, A+Ox3 HEENT: anicteric. mucosa moist neck: no JVD abd: obese, soft NT ext: no edema CV: S1 S2 no murmers pulm: CTAB gu: No august cath neuro: no asterixis/focal deficits skin :no rash/pruritis Results Pertinent Lab Results: Laboratory Tests 04/30 04/30 0615 0330 Chemistry Sodium (137 - 145 mmol/L) 141 Potassium (3.5 - 5.1 mmol/L) 5.5 H Chloride (98 - 107 mmol/L) 105 Carbon Dioxide (22 - 30 mmol/L) 26 Anion Gap (5 - 16) 11 BUN (7 - 17 mg/dL) 62 H Creatinine (0.5 - 1.0 mg/dL) 2.3 H Estimated GFR (>60 ml/min) 20 L BUN/Creatinine Ratio (7 - 25 %) 27.0 H Glucose (65 - 99 mg/dL) 121 H Coagulation PT (9.4 - 12.5 SEC) 20.1 H INR (0.90 - 1.19) 1.83 H Hematology CBC w Diff NO MAN DIFF REQ WBC (4.8 - 10.8 /CUMM) 6.7 RBC (4.20 - 5.40 /CUMM) 3.02 L Hgb (12.0 - 16.0 G/DL) 9.0 L Hct (37 - 47 %) 27.2 L MCV (81.0 - 99.0 FL) 90.1 MCH (27.0 - 31.0 PG) 29.8 MCHC (33.0 - 37.0 G/DL) 33.1 RDW (11.5 - 14.5 %) 15.7 H Plt Count (130 - 400 /CUMM) 226 MPV (7.4 - 10.4 FL) 9.1 Gran % (42.2 - 75.2 %) 74.2 Lymphocytes % (20.5 - 51.1 %) 12.1 L Monocytes % (1.7 - 9.3 %) 10.0 H Eosinophils % (0 - 5 %) 3.1 Basophils % (0.0 - 2.0 %) 0.6 Absolute Granulocytes (1.4 - 6.5 /CUMM) 5.0 Absolute Lymphocytes (1.2 - 3.4 /CUMM) 0.8 L Absolute Monocytes (0.10 - 0.60 /CUMM) 0.7 H Absolute Eosinophils (0.0 - 0.7 /CUMM) 0.2 Absolute Basophils (0.0 - 0.2 /CUMM) 0 Urines Urinalysis LIGHT H Urine Color (YEL,AMB,STR) YEL Urine Clarity (CLEAR) HAZY H Urine pH (5.0 - 8.0) 6.0 Ur Specific [place] (1.001 - 1.035) 1.015 Urine Protein (NEG,<30 MG/DL) NEG Urine Ketones (NEG) NEG Urine Nitrite (NEG) NEG Urine Bilirubin (NEG) NEG Urine Urobilinogen (0.1 - 1.0 EU/dl) 0.2 Ur Leukocyte Esterase (NEG) MOD H Ur Microscopic SEDIMENT EXAMINED Urine RBC (0 - 5 /HPF) 3-5 Urine WBC (0 - 2 /HPF) 5-10 H Ur Epithelial Cells (NONE,FEW) FEW Urine Bacteria (NEG/NONE) FEW H Urine Mucus (FEW,NONE) FEW Urine Hemoglobin (NEG) NEG Urine Glucose (N MG/DL) NEG 04/29 04/28 0740 0727 Chemistry Sodium (137 - 145 mmol/L) 144 142 Potassium (3.5 - 5.1 mmol/L) 5.5 H 5.5 H Chloride (98 - 107 mmol/L) 106 104 Carbon Dioxide (22 - 30 mmol/L) 24 24 Anion Gap (5 - 16) 13 14 BUN (7 - 17 mg/dL) 60 H 42 H Creatinine (0.5 - 1.0 mg/dL) 2.4 H 1.8 H Estimated GFR (>60 ml/min) 19 L 27 L BUN/Creatinine Ratio (7 - 25 %) 25.0 23.3 Coagulation PT (9.4 - 12.5 SEC) 15.7 H 12.6 H INR (0.90 - 1.19) 1.44 H 1.15 Hematology CBC w Diff NO MAN DIFF REQ NO MAN DIFF REQ WBC (4.8 - 10.8 /CUMM) 7.7 12.6 H RBC (4.20 - 5.40 /CUMM) 3.07 L 3.40 L Hgb (12.0 - 16.0 G/DL) 9.1 L 10.3 L Hct (37 - 47 %) 27.7 L 30.4 L MCV (81.0 - 99.0 FL) 90.1 89.4 MCH (27.0 - 31.0 PG) 29.7 30.1 MCHC (33.0 - 37.0 G/DL) 32.9 L 33.7 RDW (11.5 - 14.5 %) 15.9 H 15.5 H Plt Count (130 - 400 /CUMM) 220 237 MPV (7.4 - 10.4 FL) 8.6 8.9 Gran % (42.2 - 75.2 %) 73.2 89.1 H Lymphocytes % (20.5 - 51.1 %) 14.9 L 5.2 L Monocytes % (1.7 - 9.3 %) 8.7 5.7 Eosinophils % (0 - 5 %) 2.6 0 Basophils % (0.0 - 2.0 %) 0.6 0 Absolute Granulocytes (1.4 - 6.5 /CUMM) 5.6 11.3 H Absolute Lymphocytes (1.2 - 3.4 /CUMM) 1.1 L 0.7 L Absolute Monocytes (0.10 - 0.60 /CUMM) 0.7 H 0.7 H Absolute Eosinophils (0.0 - 0.7 /CUMM) 0.2 0 Absolute Basophils (0.0 - 0.2 /CUMM) 0 0 Assessment/Plan Assessment/Recommendations Assessment: OMAIRA: I suspect due to ischemic ATN, likely from intraoperative renal hypoperfusoin while on an ARB. Fortunately creat starting to improve and no acute dialytic need. Favor continuing the gentle IV hydration as no signs of volume overload. F/up renal US. CKD stage 3: I suspect due to DM, HTN, chronic NSAID use hyperkalemia (K 5.5): agree with holding the ARB. Needs low K+ diet (2g/day) L renal masses vs L complex cysts: Pt claims she was already referred to Dr Hyman as an outpatient Recommendations: Outpt f/up Dr Hyman --urology continue gentle IV hydration low K+ diet (2g/day) hold ARB as you are doing hold lasix for now; plan to resume on discharge f/up renal US add on calcium/mag/phos level pt counseled to avoid NSAIDS daily weights, strict ins/outs, daily renal labs hopeful discharge in next 1-2 days I contacted my office to schedule her for a f/up with me in 2 months once she is stable for STR Thank you for the consult Edgar Hui MD
[2018-04-30 14:36] VITALS: BP 122/70
--- NOTE | 2018-04-30 15:03 | ULTRASOUND REPORT ---
EXAMINATION: US RETROPERITONEAL COMPLETE (RENAL) CLINICAL INFORMATION: Acute worsening kidney function. Presumptive diagnosis of obstructive uropathy. COMPARISON: CT scan of the abdomen and pelvis dated 03/31/2018. Renal ultrasound dated 11/18/2016. MRI scan of the lumbar spine dated 06/10/2016. TECHNIQUE: Real-time imaging of the kidneys and bladder. FINDINGS: Evaluation is limited by the patient's body habitus. RIGHT KIDNEY: 11.7 x 5.6 x 5.0 cm (SAG x AP x TRV). The kidney is normal in size, contour, and echogenicity. Mild diffuse cortical thinning is seen. No calculi or focal parenchymal lesions. No hydronephrosis. LEFT KIDNEY: 11.6 x 6.1 x 4.8 cm (SAG x AP x TRV). The kidney is normal in size, contour, and echogenicity. Mild diffuse renal cortical thinning is seen. No calculi. No hydronephrosis. In the lower pole of the left kidney, 2 adjacent simple avascular cysts are seen, measuring 1.8 x 1.6 x 2.0 cm and 1.5 x 1.6 x 1.6 cm. Additional 1.7 x 1.2 x 1.5 cm lower pole left renal cyst is seen. BLADDER: Well-distended and normal. Bilateral ureteral jets are demonstrated. Prevoid bladder volume is 421 mL. Postvoid bladder volume could not be assessed since the patient was unable to void. IMPRESSION: 1. Mild bilateral renal cortical atrophy is noted, consistent with medical renal disease. 2. No evidence of obstructive uropathy. The nonobstructing lower pole right renal calcification seen on CT scan is not appreciated on this exam. 3. There are 3 benign-appearing simple cysts in the lower pole of the left kidney. No suspicious renal mass. The small fat-containing mass described on previous CT scan in the upper pole of the left kidney is not appreciated by ultrasound.
[2018-04-30 22:09] VITALS: BP 106/60
[2018-05-01 06:20] VITALS: BP 132/76
--- NOTE | 2018-05-01 07:33 | PN- Medicine Consult ---
MoustaphaIam 05/01/18 0733: Assessment/PlanMedical Consult Assessment/Plan Assessment: 77-year-old woman with past medical history significant for COPD not on home oxygen, severe osteoarthritis, hypertension, GERD, insulin-dependent diabetes mellitus, chronic low back pain, history of kidney stones, right kidney exophytic masses. POD 5 status post right knee arthroplasty, medicine consulted for mild hyperkalemia and worsening kidney function. Plan: Creatinine back to baseline, can restart her Cozaar Patient should f/up with Dr. Hyman upon discharge hyperkalemia likely secondary to renal insufficiency. Continues to be constipated since past 4 days continue Colace and senna, give suppository Encourage incentive spirometry Accu-Cheks well controlled on current regimen, continue same for now will sign off for now Please call with any questions, Attending Recs to follow DVT prophylaxis on Coumadin Full code Subjective Subjective: Seen and examined patient offer no new complaints, continues to complain of constipation. Review of Systems Constitutional: Denies: chills, diaphoresis, fever, malaise, weakness, unexplained weight loss. Cardiovascular: Denies: chest pain, edema, orthopena, palpitations, peripheral edema, syncope. Respiratory: Denies: cough, hemoptysis, orthopnea, short of breath, sputum production, stridor, wheezing. Objective Last 24 Hrs of Vital Signs/I&O Vital Signs Date Time Temp Pulse Resp B/P B/P Pulse O2 O2 Flow FiO2 Mean Ox Delivery Rate 05/01 0854 70 140/82 / 0800 Room Air 05/01 0620 98.6 80 18 132/76 94 Room Air 04/30 2209 98.3 75 18 106/60 92 /05 1845 94 Room Air /05 1436 98.0 73 20 122/70 97 Room Air /05 1235 Room Air Intake & Output 05/01 1600 05/01 0800 05/01 0000 Intake Total 900 1000 Output Total 100 450 700 Balance -100 450 300 Intake, IV 600 600 Intake, Oral 300 400 Output, Urine 100 450 700 Physical Exam General Appearance: no apparent distress, alert, awake Cardiovascular: regular rate/rhythm Respiratory: normal breath sounds, wheezing (scattered) Extremities: no edema Current Medications: Current Medications Sig/Jose Start time Last Medication Dose Route Stop Time Status Admin Albuterol Sulfate 3 ML BID 04/29 2100 AC 04/30 INH 1845 Albuterol Sulfate 2 PUF Q4-6 PRN PRN 04/27 1130 AC INH Allopurinol 100 MG DAILY 05/01 900 AC 05/01 PO 0854 Allopurinol 200 MG DAILY 04/30 0900 DC 04/30 PO 0840 Amlodipine Besylate 2.5 MG DAILY 04/28 09 AC 05/01 PO 0854 Bisacodyl 10 MG ONCE PRN 05/01 1030 AC IA Budesonide/ 2 PUF BID 04/27 2100 AC 05/01 Formoterol Fumarate INH 0852 Calcium Carbonate 500 MG TID PRN 04/27 1532 AC 04/28 PO 1931 Docusate Sodium 100 MG BID 04/29 2100 AC 05/01 PO 0854 Fenofibrate 145 MG DAILY 04/28 09 AC 05/01 PO 0854 Hydrocodone Bitart/ 1 TAB Q6P PRN 04/27 1130 AC 05/01 Acetaminophen PO 0852 Hydrocodone Bitart/ 2 TAB Q6P PRN 04/27 1130 AC 04/29 Acetaminophen PO 1302 Insulin Detemir 26 UNITS QPM 04/27 2100 04/30 SC 2122 Insulin Human Regular 4 UNITS .STK-MED ONE 04/30 1715 DC IV 04/30 1716 Insulin Human Regular 2 UNITS .STK-MED ONE 04/30 1346 DC IV 04/30 1347 Insulin Human Regular 0 TIDAC/HS 04/27 1200 05/01 SC 0852 Montelukast Sodium 10 MG AT BEDTIME 04/27 2100 04/30 PO 2122 Morphine Sulfate 2 MG Q3P PRN 04/29 1045 DC 04/30 IV 0345 Omeprazole 40 MG DAILY AC 04/28 07 05/01 PO 0649 Ondansetron HCl 4 MG Q6P PRN 04/27 1130 AC IV Polyethylene Glycol 17 GM DAILY 04/29 1039 AC 05/01 PO 0852 Pregabalin 75 MG BID 04/27 2100 AC 05/01 PO 0852 Ramelteon 8 MG .STK-MED ONE 04/30 2344 DC PO 04/30 2345 Ramelteon 8 MG AT BEDTIME NEED.. 04/27 1130 AC 04/30 PO 2345 Senna/Docusate Sodium 2 TAB AT BEDTIME NEED.. 04/27 1130 AC 05/01 PO 1020 Sodium Chloride 1,000 ML Q13H 04/29 1045 DC 05/01 IV 0652 Tiotropium [place] 1 PUF DAILY 04/28 0900 AC 05/01 INH 0853 Warfarin Sodium 5 MG COUMADIN 1700 ONE 04/30 1700 DC 04/30 PO 04/30 1701 1717 Results Last 24 Hrs Lab/Nirmal Results: Laboratory Tests 05/01/18 0817: Anion Gap 12, Estimated GFR 31 L, BUN/Creatinine Ratio 30.6 H, Calcium 8.5, Phosphorus 3.7, Magnesium 1.9, PT 25.4 H, INR 2.31 H, CBC w Diff NO MAN DIFF REQ, RBC 3.11 L, MCV 90.2, MCH 30.1, MCHC 33.4, RDW 15.5 H, MPV 8.6, Gran % 79.0 H, Lymphocytes % 9.6 L, Monocytes % 7.4, Eosinophils % 3.5, Basophils % 0.5, Absolute Granulocytes 4.0, Absolute Lymphocytes 0.5 L, Absolute Monocytes 0.4, Absolute Eosinophils 0.2, Absolute Basophils 0 Hans BANDA,[facility] 05/01/18 1110: Attending MD Review Statement Attending Sign Off Attending Cosign Statement: I have: examined this patient, reviewed [facility] EMR data, personally reviewd images, discussd w/resident/PA/MANAGER ART, discussed mgmt plan w/no, discussed mgmt plan w/pt, agreed w/resident/PA/MANAGER ART, amended to note. Other Findings: Patient seen and examined, overall doing much better. She is constipated. She is ordered bowel regimen. Creatinine is now back to baseline. Vital Signs Date Time Temp Pulse Resp B/P B/P Pulse O2 O2 Flow FiO2 Mean Ox Delivery Rate 05/01 1103 97 Room Air Room Air 05/01 0854 70 140/82 05/01 0800 Room Air 05/01 0620 98.6 80 18 132/76 94 Room Air 04/30 2209 98.3 75 18 106/60 92 04/30 1845 94 Room Air 04/30 1436 98.0 73 20 122/70 97 Room Air 04/30 1235 Room Air on exam; aox,3 nad. cv; s1,s2, rrr, soft sytolic murmur. resp; clear abd; soft, nt, bs+ ext: no edema right knee with dressing on and wound looks clean with steri strips on. Laboratory Tests 05/01 0817 Chemistry Sodium (137 - 145 mmol/L) 145 Potassium (3.5 - 5.1 mmol/L) 4.9 Chloride (98 - 107 mmol/L) 108 H Carbon Dioxide (22 - 30 mmol/L) 25 Anion Gap (5 - 16) 12 BUN (7 - 17 mg/dL) 49 H Creatinine (0.5 - 1.0 mg/dL) 1.6 H Estimated GFR (>60 ml/min) 31 L BUN/Creatinine Ratio (7 - 25 %) 30.6 H Calcium (8.4 - 10.2 mg/dL) 8.5 Phosphorus (2.5 - 4.5 mg/dL) 3.7 Magnesium (1.6 - 2.3 mg/dL) 1.9 Coagulation PT (9.4 - 12.5 SEC) 25.4 H INR (0.90 - 1.19) 2.31 H Hematology CBC w Diff NO MAN DIFF REQ WBC (4.8 - 10.8 /CUMM) 5.1 RBC (4.20 - 5.40 /CUMM) 3.11 L Hgb (12.0 - 16.0 G/DL) 9.4 L Hct (37 - 47 %) 28.0 L MCV (81.0 - 99.0 FL) 90.2 MCH (27.0 - 31.0 PG) 30.1 MCHC (33.0 - 37.0 G/DL) 33.4 RDW (11.5 - 14.5 %) 15.5 H Plt Count (130 - 400 /CUMM) 242 MPV (7.4 - 10.4 FL) 8.6 Gran % (42.2 - 75.2 %) 79.0 H Lymphocytes % (20.5 - 51.1 %) 9.6 L Monocytes % (1.7 - 9.3 %) 7.4 Eosinophils % (0 - 5 %) 3.5 Basophils % (0.0 - 2.0 %) 0.5 Absolute Granulocytes (1.4 - 6.5 /CUMM) 4.0 Absolute Lymphocytes (1.2 - 3.4 /CUMM) 0.5 L Absolute Monocytes (0.10 - 0.60 /CUMM) 0.4 Absolute Eosinophils (0.0 - 0.7 /CUMM) 0.2 Absolute Basophils (0.0 - 0.2 /CUMM) 0 Assessment and recommendations: 77 y/o F with pmh sig for COPD not on home oxygen, severe osteoarthritis, hypertension, GERD, insulin-dependent diabetes mellitus, chronic low back pain, history of kidney stones, status post right TKA for osteoarthritis postop day #4 today. Medicine is consulted for acute kidney injury. Creatinine is back to baseline. K is normal. Patient is ordered stool softeners for constipation. I have also ordered suppository as needed. Renal ultrasound reviewed and does not show any obstruction. Patient is stable from medical standpoint for discharge after she has a bowel movement. Would resume back her original dose of allopurinol. Likely can resume her diuretics in the next 24 hours. Patient should follow-up with rate clerk Dr. Hui and urologist Dr. Hyman as an outpatient. Please add those recommendations on her discharge paperwork. She should also have a repeat BEP checked in 1 week. Please add that in her discharge paperwork. Would recommend continuing to avoid NSAIDs and other nephrotoxic medications. Medical issues are otherwise stable. Medicine will sign off.
--- NOTE | 2018-05-01 07:49 | PN- Orthopedic ---
Subjective Subjective: PT sitting in chair, no complaints. pain well controlled. Ambulating with Physocal therapy. tolerating diet, no BM yet. Voiding deneis paresthesias. no cp. sob at baseline. Objective Vital Signs and I&Os Vital Signs Date Time Temp Pulse Resp B/P B/P Pulse O2 O2 Flow FiO2 Mean Ox Delivery Rate 05/01 0620 98.6 80 18 132/76 94 Room Air 04/30 2209 98.3 75 18 106/60 92 04/30 1845 94 Room Air 04/30 1436 98.0 73 20 122/70 97 Room Air 04/30 1235 Room Air 04/30 0956 92 Room Air 04/30 0841 86 120/82 Intake & Output 05/01 0000 04/30 1600 04/30 0804/30 0000 04/29 1600 Intake Total 1000 5894 362 9337 860 Output Total 700 515 300 200 Balance 300 992 380 9311 660 Intake, IV 600 525 600 600 Intake, Oral 400 960 360 800 860 Output, Urine 700 515 300 200 Patient 243 lb Weight Physical Exam: gen- NAD resp- clear cardiac-rrr abd- soft, nt ext- right knee with moderate post-op edema. incision clean and dry, no signs of infection. clean dry dressing change. no calf tenderness. 2+DP pulse. distal sensory and motor function intact Current Medications: Current Medications Sig/Jose Start time Last Medication Dose Route Stop Time Status Admin Albuterol Sulfate 3 ML BID 04/29 2100 AC 04/30 INH 1845 Albuterol Sulfate 2 PUF Q4-6 PRN PRN 04/27 1130 AC INH Allopurinol 200 MG DAILY 04/30 900 AC 04/30 PO 0840 Amlodipine Besylate 2.5 MG DAILY 04/28 09 AC 04/30 PO 0841 Budesonide/ 2 PUF BID 04/27 2100 AC 04/30 Formoterol Fumarate INH 2124 Calcium Carbonate 500 MG TID PRN 04/27 1532 AC 04/28 PO 1931 Docusate Sodium 100 MG BID 04/29 2100 AC 04/30 PO 2122 Fenofibrate 145 MG DAILY 04/28 900 AC 04/30 PO 0840 Hydrocodone Bitart/ 1 TAB Q6P PRN 04/27 1130 AC 04/30 Acetaminophen PO 2130 Hydrocodone Bitart/ 2 TAB Q6P PRN 04/27 1130 04/29 Acetaminophen PO 1302 Insulin Detemir 26 UNITS QPM 04/27 2100 AC 04/30 SC 2122 Insulin Human Regular [address] ONE 04/30 1715 DC IV 04/30 1716 Insulin Human Regular [address] ONE 04/30 1346 DC IV 04/30 1347 Insulin Human Regular 2 UNITS .[facility] ONE 04/30 0837 DC IV 04/30 0838 Insulin Human Regular 0 TIDAC/HS 04/27 1200 AC 04/30 SC 1718 Montelukast Sodium 10 MG AT BEDTIME 04/27 2100 AC 04/30 PO 2122 Morphine Sulfate 2 MG Q3P PRN 04/29 1045 AC 04/30 IV 0345 Omeprazole 40 MG DAILY AC 04/28 0700 AC 05/01 PO 0649 Ondansetron HCl 4 MG Q6P PRN 04/27 1130 IV Polyethylene Glycol 17 GM DAILY 04/29 1039 AC 04/30 PO 0843 Pregabalin 75 MG BID 04/27 2100 AC 04/30 PO 2122 Ramelteon [address] ONE 04/30 2344 DC PO 04/30 2345 Ramelteon 8 MG AT BEDTIME NEED.. 04/27 1130 AC 04/30 PO 2345 Senna/Docusate Sodium 2 TAB AT BEDTIME NEED.. 04/27 1130 04/28 PO 2102 Sodium Chloride 1,000 ML Q13H 04/29 1045 05/01 IV 0652 Tiotropium [place] 1 PUF DAILY 04/28 0900 04/30 INH 0843 Warfarin Sodium 5 MG COUMADIN 1700 ONE 04/30 1700 DC 07 PO 04/30 1701 1717 Results Last 48 Hours of Labs: Laboratory Tests 04/30 04/30 0615 0330 Chemistry Sodium (137 - 145 mmol/L) 141 Potassium (3.5 - 5.1 mmol/L) 5.5 H Chloride (98 - 107 mmol/L) 105 Carbon Dioxide (22 - 30 mmol/L) 26 Anion Gap (5 - 16) 11 BUN (7 - 17 mg/dL) 62 H Creatinine (0.5 - 1.0 mg/dL) 2.3 H Estimated GFR (>60 ml/min) 20 L BUN/Creatinine Ratio (7 - 25 %) 27.0 H Glucose (65 - 99 mg/dL) 121 H Calcium (8.4 - 10.2 mg/dL) 8.2 L Phosphorus (2.5 - 4.5 mg/dL) 4.8 H Magnesium (1.6 - 2.3 mg/dL) 1.8 Coagulation PT (9.4 - 12.5 SEC) 20.1 H INR (0.90 - 1.19) 1.83 H Hematology CBC w Diff NO MAN DIFF REQ WBC (4.8 - 10.8 /CUMM) 6.7 RBC (4.20 - 5.40 /CUMM) 3.02 L Hgb (12.0 - 16.0 G/DL) 9.0 L Hct (37 - 47 %) 27.2 L MCV (81.0 - 99.0 FL) 90.1 MCH (27.0 - 31.0 PG) 29.8 MCHC (33.0 - 37.0 G/DL) 33.1 RDW (11.5 - 14.5 %) 15.7 H Plt Count (130 - 400 /CUMM) 226 MPV (7.4 - 10.4 FL) 9.1 Gran % (42.2 - 75.2 %) 74.2 Lymphocytes % (20.5 - 51.1 %) 12.1 L Monocytes % (1.7 - 9.3 %) 10.0 H Eosinophils % (0 - 5 %) 3.1 Basophils % (0.0 - 2.0 %) 0.6 Absolute Granulocytes (1.4 - 6.5 /CUMM) 5.0 Absolute Lymphocytes (1.2 - 3.4 /CUMM) 0.8 L Absolute Monocytes (0.10 - 0.60 /CUMM) 0.7 H Absolute Eosinophils (0.0 - 0.7 /CUMM) 0.2 Absolute Basophils (0.0 - 0.2 /CUMM) 0 Urines Urinalysis LIGHT H Urine Color (YEL,AMB,STR) YEL Urine Clarity (CLEAR) HAZY H Urine pH (5.0 - 8.0) 6.0 Ur Specific [place] (1.001 - 1.035) 1.015 Urine Protein (NEG,<30 MG/DL) NEG Urine Ketones (NEG) NEG Urine Nitrite (NEG) NEG Urine Bilirubin (NEG) NEG Urine Urobilinogen (0.1 - 1.0 EU/dl) 0.2 Ur Leukocyte Esterase (NEG) MOD H Ur Microscopic SEDIMENT EXAMINED Urine RBC (0 - 5 /HPF) 3-5 Urine WBC (0 - 2 /HPF) 5-10 H Ur Epithelial Cells (NONE,FEW) FEW Urine Bacteria (NEG/NONE) FEW H Urine Mucus (FEW,NONE) FEW Urine Hemoglobin (NEG) NEG Urine Glucose (N MG/DL) NEG Assessment/Plan Assessment/Plan This is a 77 year old, pod 4, s/p R tkr with OMAIRA and hyperkalemia -Follow up labs this am, watching creatinine and potassium, continue fluids for now -Colace and Miralax for constipation, add Senna today -Will furthur decrease Allopurinol dose to 100mg daily due to OMAIRA -Cont IVF and low potassium diet -OOB, wbat with PT -Continue coumadin for dvt ppx- FU -Will DC IV morphine, switch to just oral pain medication -Appreciate medicine team and nephrology input regarding home meds, lasix-pt states she takes it daily -Discharge planning when stable from medical standpoint Will discuss plan of care with Dr. Allen Core Measures Venous Thromboembolism VTE Risk Factors Surgery No Mechanical VTE Prophylaxis d/t N/A MechProphylax Ordered No VTE Pharm Prophylaxis d/t NA PharmProphylax ordered
[2018-05-01 08:55] LABS: ABSOLUTE BASOPHIL COUNT 0 /CUMM (0.0-0.2); ABSOLUTE EOSINOPHIL COUNT 0.2 /CUMM (0.0-0.7); ABSOLUTE LYMPH COUNT 0.5 /CUMM (1.2-3.4); ABSOLUTE MONOCYTE COUNT 0.4 /CUMM (0.10-0.60); BASOPHIL % 0.5 % (0.0-2.0); EOSINOPHIL % 3.5 % (0-5); MEAN CORPUSCULAR HGB 30.1 PG (27.0-31.0); MEAN CORPUSCULAR HGB CONC 33.4 G/DL (33.0-37.0); MEAN CORPUSCULAR VOLUME 90.2 FL (81.0-99.0); MEAN PLATELET VOLUME 8.6 FL (7.4-10.4); PLATELET COUNT 242 /CUMM (130-400); RBC DISTRIBUTION WIDTH 15.5 % (11.5-14.5); RED BLOOD CELL CT 3.11 /CUMM (4.20-5.40); WHITE BLOOD CELL COUNT 5.1 /CUMM (4.8-10.8)
[2018-05-01 08:56] LABS: PT 25.4 SEC (9.4-12.5)
[2018-05-01] MEDS ORDERED: LASIX20 M1 PO (11:49)
[2018-05-01] MEDS ORDERED: VICODIN 5-3001 EACH PO (11:49)
[2018-05-01] MEDS ORDERED: COUMADIN2.5 M1 PO (11:49)
[2018-05-01 13:40] VITALS: BP 140/82
== END 2018-05-01 13:44 | DRG 470 ==
LOC: SDA 04:57 → ENRESERV 10:41 → ENTRNSPT 11:06 → EDTRNSPTSTS 11:11 → EDTRNSPT 11:11 → 2NA 11:15 → CMPTRNSPT 11:26 → ENPENDDIS 05-01 12:05 → 2NA 05-01 13:44
PROVIDERS: Physician Assistant; Physician Assistant Surgical
PROC: 3E0T3BZ Introduction of Anesthetic Agent into Peripheral Nerves and Plexi, Percutaneous Approach (ICD-10-PCS; principal; 2018-04-27)
PROC: 0SRC0J9 Replacement of Right Knee Joint with Synthetic Substitute, Cemented, Open Approach (ICD-10-PCS; principal; 2018-04-27)
DX: M17.11 Unilateral primary osteoarthritis, right knee (principal); N17.9 Acute kidney failure, unspecified; Z68.41 Body mass index [BMI] 40.0-44.9, adult; I13.0 Hypertensive heart and chronic kidney disease with heart failure and stage 1 through stage 4 chronic kidney disease, or unspecified chronic kidney disease; M21.061 Valgus deformity, not elsewhere classified, right knee; J44.9 Chronic obstructive pulmonary disease, unspecified; K21.9 Gastro-esophageal reflux disease without esophagitis; E11.9 Type 2 diabetes mellitus without complications; M54.5 Low back pain; E87.5 Hyperkalemia; Z79.4 Long term (current) use of insulin; Z79.51 Long term (current) use of inhaled steroids; E78.5 Hyperlipidemia, unspecified; Z90.49 Acquired absence of other specified parts of digestive tract; Z90.710 Acquired absence of both cervix and uterus; K59.00 Constipation, unspecified; E66.9 Obesity, unspecified; E11.22 Type 2 diabetes mellitus with diabetic chronic kidney disease; N18.3 Chronic kidney disease, stage 3 (moderate); I50.9 Heart failure, unspecified; G47.33 Obstructive sleep apnea (adult) (pediatric); Z88.5 Allergy status to narcotic agent
CPT/HCPCS: 2NAP; 36415; 36592; 73560-RT; 76775; 81001; 82436; 93005; 93010; 97110-GO; 97116-GO; 97161-GP; 97530-GO; C1713; C9290; J0690; J1100; J1815; J2405; J3370; J3490; J7040

== ENCOUNTER 2018-05-23 05:43 | Emergency (ER) | payer OTHER ==
[~2018-05-23 05:43] MED LIST changes: +COUMADIN2.5 M1 PO; +LASIX20 M1 PO; +VICODIN 5-3001 EACH PO
--- NOTE | 2018-05-23 05:53 | ED DYSPNEA/ASTHMA COMPLAINT ---
See Addendum History of Present Illness General Chief Complaint: General Adult Stated Complaint: "SOB,COPD,COUGH" Source: patient, family Exam Limitations: no limitations Allergies Coded Allergies: oxycodone (From PERCOCET) (?PERCOCET - NAUSEA 01/01/16) codeine (GI UPSET 01/01/16) Reconcile Medications Albuterol Sulfate (Proair Hfa) 90 MCG HFA.AER.AD 2 PUF INH Q4-6 PRN PRN SHORTNESS OF BREATH (Reported) Allopurinol 300 MG TABLET 1 TAB PO DAILY kidney stones (Reported) Amlodipine Besylate 5 MG TABLET 1 TAB PO DAILY BLOOD PRESSURE Aspirin (Ecotrin*) 81 MG TABLET.DR 1 TAB PO DAILY HEART HEALTH (Reported) Azithromycin (Zithromax) 250 MG TABLET 1 DP PO AD bronchitis 2 the first day followed by 1 for days 2-5 Cholecalciferol (Vitamin D3) 1,000 UNIT TABLET 1 TAB PO DAILY VITAMIN SUPPORT (Reported) Clotrimazole 1 % CREAM..G. 1 CASE TOP QAMPM PRN rash/itching apply to affected area(s) Cyanocobalamin (Vitamin B-12) (B-12 Dots) 500 MCG TABLET 1 TAB PO DAILY VITAMIN SUPPORT (Reported) Fenofibrate 160 MG TABLET 1 TAB PO DAILY CHOLESTEROL (Reported) Fluticasone/Salmeterol (Advair 250-50 Diskus) 250 MCG-50 MCG/DOSE BLST.W.DEV 1 PUF INH DAILY ASTHMA (Reported) Furosemide (Lasix) 20 MG TABLET 1 TAB PO DAILY edema Hydrocodone/Acetaminophen (Vicodin 5-300 MG Tablet) 5 MG-300 MG TABLET 1-2 TAB PO Q4-6 PRN post-op knee pain Insulin Glargine,Hum.rec.anlog (Lantus Solostar) 100 UNIT/ML (3 ML) INSULN.PEN 26 UNIT SC QPM DIABETES (Reported) Insulin Lispro (Humalog Kwikpen U-100) (Unknown Strength) INSULN.PEN (Unknown Dose) SC TIDAC/HS DIABETES (Reported) Liraglutide (Victoza 3-Richard) 0.6 MG/0.1 ML (18 MG/3 ML) PEN.INJCTR 1.8 MG SC DAILY DIABETES (Reported) Montelukast Sodium (Singulair) 5 MG TAB.CHEW 2 TAB PO DAILY ASTHMA (Reported) Omeprazole 40 MG CAPSULE.DR 1 CAP PO DAILY GERD (Reported) Prednisone 10 MG TABLET 1 TAB PO AD bronchitis take 6 tabs on day 1, reduce one tablet a day and take for 6 days until finished Pregabalin (Lyrica) 75 MG CAPSULE 1 CAP PO DAILY PAIN (Reported) Tiotropium Jupiter (Spiriva) 18 MCG CAP.W.DEV 1 CAP INH DAILY COPD (Reported) Warfarin Sodium (Coumadin) 2.5 MG TABLET 1 TAB PO DAILY dvt ppx Triage Note: PER PT HAD KNEE REPLACEMENT 3 WEEKS AGO WENT TO [facility], DEVELOPED A COUGH, HAS GOTTEN WORSE SINCE DISCHARGE DENIES FEVERS LOOSE COUGH NOTED. Triage Nurses Notes Reviewed? yes Onset: Gradual Duration: week(s):, waxing and waning Timing: recent history Severity: moderate Activities at Onset: none Prior Episodes/Possible Cause: occasional episodes Associated Symptoms: cough, wheezing HPI: 77 yo woman h/o copd, h/o right knee replacement in recent weeks, on coumadin, presents with 2 weeks of cough, wheeze, and shortness of breath. She shares that, "I had a lot of phlegm come up, but now not so much." She has no fever, chills, chest pain, dizziness. Her doctors told her to hold the coumadin x 1 day. Her knee surgery was uncomplicated, "and now I walk great." She is otherwise well. ([facility]doulaye BANDA,Nura Patel) Vital Signs & Intake/Output Vital Signs & Intake/Output ED Intake and Output 05/24 0000 05/23 1200 Intake Total 0 Output Total Balance 0 Intake, Oral 0 ([facility]) Past History Travel History Traveled to [place] past 21 day No Medical History Any Pertinent Medical History? see below for history Neurological: dizziness EENT: NONE Cardiovascular: CHF, hypertension, hyperlipidemia Respiratory: asthma, COPD Gastrointestinal: NONE Hepatic: cholangitis Renal: NONE (stones) Musculoskeletal: CHRONIC BACK PAIN Psychiatric: NONE Endocrine: DIABETES (IDDM) Blood Disorders: NONE Cancer(s): NONE [employer] PROF[employer]/Reproductive: NONE History of MRSA: No History of VRE: No History of CDIFF: No Surgical History Surgical History: cholecystectomy, hysterectomy Psychosocial History Who do you live with Spouse Services at Home None What is your primary language Czech Tobacco Use: Quit >30 days ago Family History Family History, If Any: BROTHER MOTHER FATHER SISTER BROTHER (lung ca). SISTER (emphysema). Relation not specified for: FH: brain cancer FH: colon cancer FH: diabetes mellitus FH: ischemic heart disease Hx Contributory? No ([facility]oul[facility] BANDA,Nura Patel) Review of Systems Review of Systems Constitutional: Reports: no symptoms. EENTM: Reports: no symptoms. Respiratory: Reports: no symptoms. Cardiovascular: Reports: no symptoms. GI: Reports: no symptoms. Genitourinary: Reports: no symptoms. Musculoskeletal: Reports: no symptoms. Skin: Reports: no symptoms. Neurological/Psychological: Reports: no symptoms. Hematologic/Endocrine: Reports: no symptoms. Immunologic/Allergic: Reports: no symptoms. All Other Systems: Reviewed and Negative ([facility]doulaye BANDA,Nura Patel) Physical Exam Physical Exam General Appearance: well developed/nourished, mild distress Head: atraumatic, normal appearance Eyes: Bilateral: normal appearance. Ears, Nose, Throat: normal pharynx, normal ENT inspection Neck: normal inspection, supple, full range of motion Respiratory: wheezing, wheezing bilaterally w/ rhonchi Cardiovascular: regular rate/rhythm Gastrointestinal: normal bowel sounds, soft, non-tender Extremities: normal inspection Neurologic/Psych: no motor/sensory deficits, awake, alert, oriented x 3 Skin: intact, normal color, warm/dry ([facility]oul[facility] BANDA,Nura Patel) Core Measures ACS in differential dx? No CVA/TIA Diagnosis No Sepsis Present: No Sepsis Focused Exam Completed? No ([facility]) Progress Differential Diagnosis: asthma, bronchitis, CHF, COPD, pneumonia Plan of Care: Orders Procedure Date/time Status RT ED ORDERS 05/23 0849 Active BLOOD CULTURE 05/23 0605 Active BLOOD CULTURE 05/23 0603 Active PARTIAL THROMBOPLASTIN TIME 05/23 0600 Complete PROTHROMBIN TIME 05/23 0600 Complete TROPONIN LEVEL 05/23 0555 Complete COMPREHENSIVE METABOLIC PANEL 05/23 0555 Complete CBC WITHOUT DIFFERENTIAL 05/23 0555 Complete B-TYPE NATRIURETIC PEP (BNP) 05/23 0555 Complete EKG 05/23 0555 Active Laboratory Tests 05/23/18 0635: Anion Gap 10, Estimated GFR 31 L, BUN/Creatinine Ratio 25.6 H, Glucose 84, Calcium 8.9, Total Bilirubin 0.3, AST 31, ALT 24, Alkaline Phosphatase 53, Troponin I 0.02, Tna-G-Hxcaqnxrnfq Pept 523 H, Total Protein 6.3, Albumin 3.7, Globulin 2.6, Albumin/Globulin Ratio 1.4, PT 24.9 H, INR 2.27 H, APTT 38 H, CBC w Diff NO MAN DIFF REQ, RBC 3.26 L, MCV 89.3, MCH 29.2, MCHC 32.7 L, RDW 15.4 H, MPV 7.9, Gran % 73.8, Lymphocytes % 13.9 L, Monocytes % 8.5, Eosinophils % 3.3, Basophils % 0.5, Absolute Granulocytes 4.0, Absolute Lymphocytes 0.8 L, Absolute Monocytes 0.5, Absolute Eosinophils 0.2, Absolute Basophils 0 Microbiology 05/23 635 BLOOD: Blood Culture - RECD 05/23 630 BLOOD: Blood Culture - RECD Diagnostic Imaging: Viewed by Me: Radiology Read. Discussed w/RAD: Radiology Read. CXR Impression: PATIENT: EMILIE CEVALLOS PRESENT AGE : 77 PATIENT ACCOUNT NO: [id number] : 38 LOCATION: [facility] ORDERING PHYSICIAN: Nura Stanford MD SERVICE DATE: 05/23/18 EXAM TYPE: RAD - XRY-PORTABLE CHEST XRAY EXAMINATION: CHEST 1 VIEW CLINICAL INFORMATION: Cough. Sputum production. COMPARISON: April 13, 2018. TECHNIQUE: An AP view of the chest is provided. FINDINGS: The cardiac silhouette is prominent, though stable. The mediastinal and hilar contours are unremarkable. There are neither pleural effusions nor pneumothoraces. There are no consolidations. There is quite mild interstitial prominence present throughout both lungs. The osseous structures are unremarkable. IMPRESSION: No consolidations. Quite mild interstitial prominence throughout both lungs which could be projectional, though mild vascular congestion cannot be excluded. DICTATED BY: Grzegorz Bradford MD DATE/TIME DICTATED:05/23/18626 DRAW IN HAND:SHABANA DATE/TIME TRANSCRIBED:05/23/18626 CONFIDENTIAL, DO NOT COPY WITHOUT APPROPRIATE AUTHORIZATION. <Electronically signed in Other Vendor System> SIGNED BY: Grzegorz Bradford MD 05/23/18632 Initial ED EKG: borderline left axis. nsr, no acute changes. ([facility] BANDA,Nura Patel) Comments: 7/28 0811 the patient is awake, alert and oriented. Minimal wheezing. Feeling much better. Not coughing since I arrived in the emergency room. Looking comfortable. Has albuterol at home, history of COPD. Presentation consistent with bronchitis. We will do an ambulatory saturation. INR is 2.27, patient is going to restart her Coumadin this evening as planned before. Presentation inconsistent with PE, the patient is appropriately anticoagulated after the surgery. X-rays benign. Labs are benign. The patient has elevated creatinine and low hemoglobin but these are consistent with her baseline. 0849 the patient did well with ambulatory saturation, dropped down to only 90-91 %. Shortness of breath is much better. The patient is feeling better. Initially she was thinking of staying in the hospital but then decided that she would rather go home. The patient's exam is benign she is in no discomfort, no respiratory distress, I will discharge her with antibiotics. Follow-up with her eyewear consultant advised next week. Emergency room return warnings given. Patient and verbalized understanding. Presentation inconsistent with PE, ACS or any other life-threatening pathology. Presentation consistent with COPD exacerbation. Chest x-ray is reviewed, presentation is not consistent with CHF. ([facility]) Departure Departure Condition: Stable Clinical Impression Primary Impression: COPD exacerbation Departure Forms: Customer Survey General Discharge Information Prescriptions: Current Visit Scripts Prednisone 1 TAB PO AD #21 TAB take 6 tabs on day 1, reduce one tablet a day and take for 6 days until finished Azithromycin (Zithromax) 1 DP PO AD #6 TAB 2 the first day followed by 1 for days 2-5 PA/BENCH WORKER APPRENTICE Co-Sign Statement Statement: ED Attending supervision documentation- [] I saw and evaluated the patient. I have also reviewed all the pertinent lab results and diagnostic results. I agree with the findings and the plan of care as documented in the PA's/BENCH WORKER APPRENTICE's documentation. [x] I have reviewed the ED Record and agree with the PA's/BENCH WORKER APPRENTICE's documentation. [] Additions or exceptions (if any) to the PAs/BENCH WORKER APPRENTICE's note and plan are summarized below: [] ([facility] BANDA,Nura Patel) Departure Time of Disposition: 0850 Disposition: HOME OR SELF CARE Referrals: Domitila BANDA,Jules Ji MD,Edward (PCP/Family) Additional Instructions: If you do not feel well, return to the emergency room. The steroids might make you feel jittery or give you insomnia. If the feeling gets too much, speak with her primary doctor or eyewear consultant about this. ([facility],Marvin) Critical Care Note Critical Care Note Critical Care Time: non-applicable (Marvin Madrid MD)
--- NOTE | 2018-05-23 06:33 | RADIOLOGY REPORT ---
EXAMINATION: CHEST 1 VIEW CLINICAL INFORMATION: Cough. Sputum production. COMPARISON: April 13, 2018. TECHNIQUE: An AP view of the chest is provided. FINDINGS: The cardiac silhouette is prominent, though stable. The mediastinal and hilar contours are unremarkable. There are neither pleural effusions nor pneumothoraces. There are no consolidations. There is quite mild interstitial prominence present throughout both lungs. The osseous structures are unremarkable. IMPRESSION: No consolidations. Quite mild interstitial prominence throughout both lungs which could be projectional, though mild vascular congestion cannot be excluded.
[2018-05-23 06:48] LABS: ABSOLUTE BASOPHIL COUNT 0 /CUMM (0.0-0.2); ABSOLUTE EOSINOPHIL COUNT 0.2 /CUMM (0.0-0.7); ABSOLUTE LYMPH COUNT 0.8 /CUMM (1.2-3.4); ABSOLUTE MONOCYTE COUNT 0.5 /CUMM (0.10-0.60); BASOPHIL % 0.5 % (0.0-2.0); EOSINOPHIL % 3.3 % (0-5); GRANULOCYTE % 73.8 % (42.2-75.2); HEMATOCRIT 29.1 % (37-47); MEAN CORPUSCULAR HGB 29.2 PG (27.0-31.0); MEAN CORPUSCULAR HGB CONC 32.7 G/DL (33.0-37.0); MEAN CORPUSCULAR VOLUME 89.3 FL (81.0-99.0); MEAN PLATELET VOLUME 7.9 FL (7.4-10.4); PLATELET COUNT 286 /CUMM (130-400); RBC DISTRIBUTION WIDTH 15.4 % (11.5-14.5); RED BLOOD CELL CT 3.26 /CUMM (4.20-5.40); WHITE BLOOD CELL COUNT 5.5 /CUMM (4.8-10.8)
[2018-05-23 07:02] LABS: PT 24.9 SEC (9.4-12.5); PTT 38 SEC (25-37)
[2018-05-23] MEDS ORDERED: ZITHROMAX250 M2 PO (09:01)
[2018-05-23] MEDS ORDERED: PREDNISONE10 M2 PO (09:01)
[2018-05-23 09:29] VITALS: BP 126/88
== END 2018-05-23 09:30 ==
LOC: ERH 05:43
PROVIDERS: Pediatrics
DX: J44.1 Chronic obstructive pulmonary disease with (acute) exacerbation (principal); Z87.891 Personal history of nicotine dependence; R06.02 Shortness of breath; R06.2 Wheezing; R05 Cough; I10 Essential (primary) hypertension; I50.9 Heart failure, unspecified
CPT/HCPCS: 1263; 71045; 87040; 93005; 93010; 96374; 96375; J0456; J0696; J2930; J7040